=== PATIENT | male | born 2000 | race Caucasian/White ===

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

== ENCOUNTER 2020-06-03 19:57 | Emergency (ER) | payer MEDICAID, OTHER ==
[2020-06-03] MEDS ORDERED: Sodium Chloride 0.9% 1000 ML 1,000 ML IV STA ×2 (20:16→22:10)
--- NOTE | 2020-06-03 20:16 | ERPHSYRPT ---
- History of Present Illness Time Seen by Provider: 06/03/20 20:13 Source: patient Exam Limitations: no limitations Physician History: pt bumped his insulin pump working at [facility] and it came off so he left it off and keep working but then developed CP - his glucose is now 600 on finger stick although he did get an injection prior to arriva; he developed CP so that is why he came in. He will replace his pump with supplies being brought from home now. We will w/u his symptoms, and obs meantime . no c/o injury or other symptoms. Timing/Duration: today Severity: mild Associated Symptoms: chest pain Allergies/Adverse Reactions: No Known Drug Allergies Allergy (Verified 06/03/20 20:15) Home Medications: Insulin Lispro [Humalog] 0 unit SQ DAILY 03/21/14 [History] Hx Tetanus, Diphtheria Vaccination/Date Given: No Hx Influenza Vaccination/Date Given: No Hx Pneumococcal Vaccination/Date Given: No - Review of Systems Constitutional: No Fever, No Chills Eyes: No Symptoms Ears, Nose, & Throat: No Symptoms Respiratory: No Cough, No Dyspnea Cardiac: Chest Pain, No Edema, No Syncope Abdominal/Gastrointestinal: No Abdominal Pain, No Nausea, No Vomiting, No Diarrhea Genitourinary Symptoms: No Dysuria Musculoskeletal: No Back Pain, No Neck Pain Skin: No Rash Neurological: No Dizziness, No Focal Weakness, No Sensory Changes Psychological: No Symptoms Endocrine: No Symptoms Hematologic/Lymphatic: No Symptoms Immunological/Allergic: No Symptoms All Other Systems: Reviewed and Negative - Past Medical History Pertinent Past Medical History: Yes Neurological History: No Pertinent History, Other ENT History: No Pertinent History Cardiac History: No Pertinent History Respiratory History: No Pertinent History Endocrine Medical History: Diabetes Type I Musculoskeletal History: No Pertinent History GI Medical History: No Pertinent History History: No Pertinent History Psycho-Social History: Attention Deficit Disorder Male Reproductive Disorders: No Pertinent History Other Medical History: 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 NO LONGER TAKES MEDS FOR ADHD. - Past Surgical History Past Surgical History: No Neuro Surgical History: No Pertinent History Cardiac: No Pertinent History Respiratory: No Pertinent History Gastrointestinal: No Pertinent History Genitourinary: No Pertinent History Musculoskeletal: No Pertinent History Male Surgical History: No Pertinent History - Social History Smoking Status: Current every day smoker How long have you smoked: 4 Exposure to second hand smoke: Yes Drug Use: none Patient Lives Alone: No Significant Family History: no pertinent family hx - Nursing Vital Signs Nursing Vital Signs: Initial Vital Signs Temperature 98.3 F 06/03/20 20:00 Pulse Rate 110 H 06/03/20 20:00 Respiratory Rate 16 06/03/20 20:00 Blood Pressure 128/58 06/03/20 20:00 O2 Sat by Pulse Oximetry 97 06/03/20 20:00 Pain Scale Pain Intensity 0 - Physical Exam General Appearance: no apparent distress, alert Eye Exam: PERRL/EOMI, eyes nml inspection Ears, Nose, Throat Exam: normal ENT inspection, TMs normal, pharynx normal, moist mucous membranes Neck Exam: normal inspection, non-tender, supple, full range of motion Respiratory Exam: normal breath sounds, lungs clear, No respiratory distress Cardiovascular Exam: regular rate/rhythm, normal heart sounds, normal peripheral pulses Gastrointestinal/Abdomen Exam: soft, normal bowel sounds, No tenderness, No mass Rectal Exam: deferred Back Exam: normal inspection, normal range of motion, No CVA tenderness, No vertebral tenderness Extremity Exam: normal inspection, normal range of motion, pelvis stable Neurologic Exam: alert, oriented x 3, cooperative, normal mood/affect, nml cerebellar function, nml station & gait, sensation nml, No motor deficits Skin Exam: normal color, warm, dry, No rash Lymphatic Exam: No adenopathy - Course Nursing assessment & vital signs reviewed: Yes EKG Interpreted by Me: Sinus Tach, Right Donovan Deviation, Non-specific ST Changes Ordered Tests: Active Orders 24 hr Category Date Time Status EKG-ER Only STAT Care 06/03/20 20:16 Active IV Insertion STAT Care 06/03/20 20:16 Active CBC W DIFF Stat Lab 06/03/20 08:15 Completed CMP Stat Lab 06/03/20 08:15 Completed POCT GLUCOSE Stat Lab 06/03/20 20:10 Received POCT GLUCOSE Stat Lab 06/03/20 21:10 Completed POCT GLUCOSE Stat Lab 06/03/20 22:54 Completed TROPONIN Q3H Lab 06/03/20 08:15 Completed TROPONIN Q3H Lab 06/03/20 23:00 Received TROPONIN Q3H Lab 06/04/20 02:30 Ordered TROPONIN Q3H Lab 06/04/20 05:30 Ordered TROPONIN Q3H Lab 06/04/20 08:30 Ordered UA W/RFX UR CULTURE Stat Lab 06/03/20 21:15 Completed Medication Summary Discontinued Medications Generic Name Dose Route Start Last Admin Trade Name Miguel PRN Reason Stop Dose Admin Sodium Chloride 1,000 mls @ 999 mls/hr 06/03/20 20:16 06/03/20 20:22 Sodium Chloride 0.9% 1000 Ml IV 06/03/20 21:16 999 mls/hr .Q1H1M STA Administration Sodium Chloride Confirm 06/03/20 20:20 Sodium Chloride 0.9% 1000 Ml Administered 06/03/20 20:21 Dose 1,000 mls @ ud .ROUTE .STK-MED ONE Sodium Chloride 1,000 mls @ 999 mls/hr 06/03/20 22:10 06/03/20 22:49 Sodium Chloride 0.9% 1000 Ml IV 06/03/20 23:10 999 mls/hr .Q1H1M STA Administration Sodium Chloride Confirm 06/03/20 22:48 Sodium Chloride 0.9% 1000 Ml Administered 06/03/20 22:49 Dose 1,000 mls @ ud .ROUTE .[employer] Lab/Rad Data: Laboratory Result Diagrams 06/03/20 08:15 06/03/20 08:15 Laboratory Results 06/03/20 06/03/20 06/03/20 Range/Units 22:54 21:15 21:10 WBC (4.0-10.5) K/mm3 RBC (4.1-5.6) M/mm3 Hgb (12.5-18.0) gm/dl Hct (42-50) % MCV (78-100) fl MCH (26-32) pg MCHC (32-36) g/dl RDW (11.5-14.0) % Plt Count (150-450) K/mm3 MPV (7.5-11.0) fl Gran % (36.0-66.0) % Eos # (Auto) (0-0.5) Absolute Lymphs (auto) (1.0-4.6) Absolute Monos (auto) (0.0-1.3) Lymphocytes % (24.0-44.0) % Monocytes % (0.0-12.0) % Eosinophils % (0.00-5.0) % Basophils % (0.0-0.4) % Absolute Granulocytes (1.4-6.9) Basophils # (0-0.4) Sodium (137-145) mmol/L Potassium (3.5-5.1) mmol/L Chloride (98-107) mmol/L Carbon Dioxide (22-30) mmol/L Anion Gap (5-15) MEQ/L BUN (9-20) mg/dL Creatinine (0.66-1.25) mg/dL Estimated GFR ML/MIN Glucose (74-106) mg/dL POC Glucometer 265 H 490 H (74 to 106) mg/dL Calcium (8.4-10.2) mg/dL Total Bilirubin (0.2-1.3) mg/dL AST (17-59) U/L ALT (0-50) U/L Alkaline Phosphatase (38-126) U/L Troponin I (0.000-0.034) ng/mL Serum Total Protein (6.3-8.2) g/dL Albumin (3.5-5.0) g/dL Urine Color STRAW (YELLOW) Urine Appearance CLEAR (CLEAR) Urine pH 6.0 (5-6) Ur Specific [place] 1.029 (1.005-1.025) Urine Protein NEGATIVE (Negative) Urine Ketones SMALL (NEGATIVE) Urine Blood NEGATIVE (0-5) Konrad/ul Urine Nitrite NEGATIVE (NEGATIVE) Urine Bilirubin NEGATIVE (NEGATIVE) Urine Urobilinogen NEGATIVE (0-1) mg/dL Ur Leukocyte Esterase NEGATIVE (NEGATIVE) Urine WBC (Auto) NONE SEEN (0-5) /HPF Urine RBC (Auto) NONE (0-2) /HPF U Epithel Cells (Auto) NONE (FEW) /HPF Urine Bacteria (Auto) NONE (NEGATIVE) /HPF Urine Culture Reflexed NO (NO) Urine Glucose >=500 (NEGATIVE) mg/dL 06/03/20 06/03/20 06/03/20 Range/Units 08:15 08:15 08:15 WBC 15.2 H (4.0-10.5) K/mm3 RBC 4.84 (4.1-5.6) M/mm3 Hgb 15.6 (12.5-18.0) gm/dl Hct 45.9 (42-50) % MCV 94.8 (78-100) fl MCH 32.2 H (26-32) pg MCHC 34.0 (32-36) g/dl RDW 11.5 (11.5-14.0) % Plt Count 238 (150-450) K/mm3 MPV 13.3 H (7.5-11.0) fl Gran % 80.8 H (36.0-66.0) % Eos # (Auto) 0.20 (0-0.5) Absolute Lymphs (auto) 1.91 (1.0-4.6) Absolute Monos (auto) 0.77 (0.0-1.3) Lymphocytes % 12.6 L (24.0-44.0) % Monocytes % 5.1 (0.0-12.0) % Eosinophils % 1.3 (0.00-5.0) % Basophils % 0.2 (0.0-0.4) % Absolute Granulocytes 12.29 H (1.4-6.9) Basophils # 0.03 (0-0.4) Sodium 129 L (137-145) mmol/L Potassium 5.3 H (3.5-5.1) mmol/L Chloride 91 L (98-107) mmol/L Carbon Dioxide 21 L (22-30) mmol/L Anion Gap 21.8 H (5-15) MEQ/L BUN 19 (9-20) mg/dL Creatinine 0.89 (0.66-1.25) mg/dL Estimated GFR > 60.0 ML/MIN Glucose 668 H* (74-106) mg/dL POC Glucometer (74 to 106) mg/dL Calcium 9.5 (8.4-10.2) mg/dL Total Bilirubin 1.10 (0.2-1.3) mg/dL AST 32 (17-59) U/L ALT 35 (0-50) U/L Alkaline Phosphatase 145 H (38-126) U/L Troponin I < 0.012 (0.000-0.034) ng/mL Serum Total Protein 7.4 (6.3-8.2) g/dL Albumin 4.8 (3.5-5.0) g/dL Urine Color (YELLOW) Urine Appearance (CLEAR) Urine pH (5-6) Ur Specific [place] (1.005-1.025) Urine Protein (Negative) Urine Ketones (NEGATIVE) Urine Blood (0-5) Konrad/ul Urine Nitrite (NEGATIVE) Urine Bilirubin (NEGATIVE) Urine Urobilinogen (0-1) mg/dL Ur Leukocyte Esterase (NEGATIVE) Urine WBC (Auto) (0-5) /HPF Urine RBC (Auto) (0-2) /HPF U Epithel Cells (Auto) (FEW) /HPF Urine Bacteria (Auto) (NEGATIVE) /HPF Urine Culture Reflexed (NO) Urine Glucose (NEGATIVE) mg/dL - Progress Progress: improved, re-examined Progress Note: 06/03/20 21:09 heart score is 3 or less, no fam hx, no hptn, +DM, nonspecific ekg , and CP is decreasing and not assoc with shortness of breath or pressure. trop is neg 06/03/20 23:45 pain has resolved glucose down to 200s and pt feels ready to go home. he prefers thsi to staying for obs and has the [place] to make that choice. Counseled pt/family regarding: lab results, diagnosis, need for follow-up - Departure Departure Disposition: Home Clinical Impression: insulin pump malfunction/disl - resolved Condition: Good Critical Care Time: No Referrals: KARUNA ADAMS [Primary Care Provider] - Additional Instructions: continue to follow with your DrBoom and to check your glucose levels. return meantime if further symptoms or concern. contact your dr.s office this week to arrange followup .
[2020-06-03] MEDS ORDERED: Sodium Chloride 0.9% 1000 ML 1,000 ML ONE ×2 (20:20→22:48)
[2020-06-03 20:29] LABS: Absolute Neutrophil Ct (ANC) 12.29 (1.4-6.9); BASOPHIL % 0.2 % (0.0-0.4); Basophil (Absolute #) 0.03 (0-0.4); Eosinophil % 1.3 % (0.00-5.0); Hematocrit 45.9 % (42-50); Hemoglobin 15.6 gm/dl (12.5-18.0); Lymphocyte (Absolute #) 1.91 (1.0-4.6); Lymphocytes % 12.6 % (24.0-44.0); Mean Cell Volume 94.8 fl (78-100); Mean Corpuscular Hemoglobin 32.2 pg (26-32); Mean Platelet Volume 13.3 fl (7.5-11.0); Monocyte (Absolute #) 0.77 (0.0-1.3); Monocytes % 5.1 % (0.0-12.0); Neutrophil % 80.8 % (36.0-66.0); Platelet Count 238 K/mm3 (150-450); Red Blood Count 4.84 M/mm3 (4.1-5.6); Red Cell Distribution Width 11.5 % (11.5-14.0); White Blood Count 15.2 K/mm3 (4.0-10.5)
[2020-06-03 20:39] LABS: ALBUMIN 4.8 g/dL (3.5-5.0); ALKALINE PHOSPHATASE 145 U/L (38-126); ANION GAP 21.8 MEQ/L (5-15); BLOOD UREA NITROGEN 19 mg/dL (9-20); CHLORIDE 91 mmol/L (98-107); Calcium 9.5 mg/dL (8.4-10.2); Carbon Dioxide 21 mmol/L (22-30); Creatinine 1 0.89 mg/dL (0.66-1.25); EST GLOMERULAR FILTRATION RATE > 60.0 ML/MIN; Potassium 5.3 mmol/L (3.5-5.1); SGOT/AST 32 U/L (17-59); SGPT/ALT 35 U/L (0-50); SODIUM 129 mmol/L (137-145); Total Protein 7.4 g/dL (6.3-8.2)
[2020-06-03 21:05] LABS: Glucose 668 mg/dL (74-106)
[2020-06-03 21:22] LABS: Appearance CLEAR (CLEAR); Bilirubin NEGATIVE (NEGATIVE); Blood NEGATIVE Ery/ul (0-5); Glucose >=500 mg/dL (NEGATIVE); Ketones SMALL (NEGATIVE); Leukocyte Esterase NEGATIVE (NEGATIVE); Nitrite NEGATIVE (NEGATIVE); Protein,Urine Dip NEGATIVE (Negative); Specific Gravity 1.029 (1.005-1.025); Urobilinogen NEGATIVE mg/dL (0-1)
[2020-06-03 21:29] LABS: WBC NONE SEEN /HPF (0-5)
[2020-06-03 22:56] VITALS: O2SAT 98
[2020-06-04 00:20] VITALS: BP 108/61; PULSE 91
== END 2020-06-04 00:20 | disposition home or self-care (01) ==
LOC: ED 19:57
DX: T85.614A Breakdown (mechanical) of insulin pump, initial encounter (principal); E10.9 Type 1 diabetes mellitus without complications; Z96.41 Presence of insulin pump (external) (internal)
CPT/HCPCS: 36415; 80053; 81001; 82962; 84484; 85025; 93005; 96360; 96361; 99284

== ENCOUNTER 2020-06-25 15:02 | Emergency (ER) | payer MEDICAID, OTHER ==
--- NOTE | 2020-06-25 15:12 | ERPHSYRPT ---
- History of Present Illness Time Seen by Provider: 06/25/20 15:07 Source: patient, family Exam Limitations: clinical condition Physician History: This is a 19-year-old white male who had his wisdom teeth removed today approximately 10 AM. The patient was given Halcion for the procedure. He then was given prescriptions for narcotic pain medicine. However, the patient has been unable to swallow because of the degree of pain that he is experiencing. Patient has not contacted the dentist. He arrives tearful secondary to the pain. Timing/Duration: this morning Severity: moderate ENT Location: dental Prearrival Treatment: prescription meds Modifying Factors: Improves With: other (Swallowing hurts) Associated Symptoms: tooth pain (At L4 wisdom teeth extraction sites.) Allergies/Adverse Reactions: No Known Drug Allergies Allergy (Verified 06/25/20 15:22) Home Medications: Insulin Lispro [Humalog] 0 unit SQ DAILY 03/21/14 [History] Hx Tetanus, Diphtheria Vaccination/Date Given: No Hx Influenza Vaccination/Date Given: No Hx Pneumococcal Vaccination/Date Given: No Travel Risk - International Travel Have you traveled outside of the country in past 3 weeks: No - Coronavirus Screening Are you exhibiting any of the following symptoms?: No Close contact with a COVID-19 positive Pt in past 14-21 Days: No - Review of Systems Constitutional: No Symptoms Eyes: No Symptoms Ears, Nose, & Throat: Other (Post dental extraction pain) Respiratory: No Symptoms Cardiac: No Symptoms Abdominal/Gastrointestinal: No Symptoms Genitourinary Symptoms: No Symptoms Musculoskeletal: No Symptoms Skin: No Symptoms - Past Medical History Pertinent Past Medical History: Yes Neurological History: No Pertinent History, Other ENT History: No Pertinent History Cardiac History: No Pertinent History Respiratory History: No Pertinent History Endocrine Medical History: Diabetes Type I Musculoskeletal History: No Pertinent History GI Medical History: No Pertinent History History: No Pertinent History Psycho-Social History: Attention Deficit Disorder Male Reproductive Disorders: No Pertinent History Other Medical History: 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 NO LONGER TAKES MEDS FOR ADHD. - Past Surgical History Past Surgical History: No Neuro Surgical History: No Pertinent History Cardiac: No Pertinent History Respiratory: No Pertinent History Gastrointestinal: No Pertinent History Genitourinary: No Pertinent History Musculoskeletal: No Pertinent History Male Surgical History: No Pertinent History - Social History Smoking Status: Current every day smoker How long have you smoked: 4 Exposure to second hand smoke: Yes Drug Use: none Patient Lives Alone: No Significant Family History: no pertinent family hx - Nursing Vital Signs Nursing Vital Signs: Initial Vital Signs Pulse Rate 91 H 06/25/20 15:12 Blood Pressure 144/90 06/25/20 15:12 O2 Sat by Pulse Oximetry 100 06/25/20 15:12 Pain Scale Pain Intensity 10 - Physical Exam General Appearance: moderate distress, alert, anxiety Eye Exam: bilateral eye: normal inspection, PERRL, EOMI Ear Exam: bilateral ear: auricle normal Nasal Exam: normal inspection Throat Exam: dental tenderness (At all 4 dental extraction sites. 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, nml cerebellar function, nml station & gait, sensation nml, other (Anxious and tearful) Skin Exam: normal color, warm, dry SpO2 Interpretation: normal O2 Delivery: Room Air - Course Nursing assessment & vital signs reviewed: Yes Ordered Tests: Active Orders 24 hr Category Date Time Status POCT GLUCOSE Stat Lab 06/25/20 15:15 Completed Lab/Rad Data: Laboratory Results 06/25/20 Range/Units 15:15 POC Glucometer 185 H (74 to 106) mg/dL - Progress Progress: improved, pain not gone completely, re-examined Progress Note: 06/25/20 15:34 Medical decision making: This patient is dental tooth extraction from this morning. He had 4 to wisdom teeth removed. He is having trouble swallowing pills. We will change his narcotic pain control medication to liquid. He is to follow-up with the dentist tomorrow by phone to make arrangements for follow-up visit and for further pain medication if needed. Counseled pt/family regarding: diagnosis, need for follow-up - Departure Departure Disposition: Home Clinical Impression: Pain, dental Condition: Stable Critical Care Time: No Referrals: KARUNA ADAMS [Primary Care Provider] - Additional Instructions: Drink clear liquids. Rinse out mouth 2-3 times a day with salt water and or mouthwash. Do not take your pain pills in addition to the liquid pain medication. Call your dentist tomorrow for further management of your pain. Prescriptions: Hydrocodone Bit/Acetaminophen [Hydrocodone-Acetaminophen Soln] 10 ml PO Q6H #120 ml
[2020-06-25] MEDS ORDERED: Hydromorphone 1 mg/ml Injection ONE (15:38)
[2020-06-25] MEDS ORDERED: Phenergan 25 MG INJ ONE (15:38)
[2020-06-25] MEDS ORDERED: solu-MEDROL 125 MG ONE (15:39)
[2020-06-25] MEDS: Phenergan 25 MG INJ IM ONE (15:47)
[2020-06-25] MEDS: Hydromorphone 1 mg/ml Injection IM ONE (15:47)
[2020-06-25] MEDS: solu-MEDROL 125 MG IM ONE (15:48)
[2020-06-25 16:18] VITALS: BP 121/78; PULSE 100; O2SAT 97
== END 2020-06-25 16:29 | disposition home or self-care (01) ==
LOC: ED 15:02
DX: K08.89 Other specified disorders of teeth and supporting structures (principal); Z98.818 Other dental procedure status
CPT/HCPCS: 82947; 96372; 99284; J1170; J2550; J2930

== ENCOUNTER 2020-08-02 20:53 | Emergency (ER) | payer MEDICAID, OTHER ==
--- NOTE | 2020-08-02 21:27 | ERPHSYRPT ---
- History of Present Illness Source: patient, police Exam Limitations: no limitations Patient Subjective Stated Complaint: pt was pulled over going 71mph in a 30mph zone. told the officer that he was speeding because he wanted to . pt states to staff that he doesnt care if he lives or dies, but is not having suicidal thoughts. Triage Nursing Assessment: pt alert and oriented, answers questions approp. pt cooperative at this time. pt arrives with law enforcement, ambulatory to room with steady gait noted. respirations nonlabored with lungs cta. skin warm and dry. Physician History: 19 yo wm caught speeding 70mph in 30mph zone told police that he did not care if he lived or . Pt denies suicidal ideation/drug-alcohol use. He has DM1 and has an insulin pump. Pt denies problems at home/work/w SO. Works at [employer]. Timing/Duration: today Precipitating Factors: unknown Context: other (Driving) Loss of Consciousness: no loss of consciousness Allergies/Adverse Reactions: No Known Drug Allergies Allergy (Verified 08/02/20 21:12) Home Medications: Insulin Lispro [Humalog] 0 unit SQ DAILY 03/21/14 [History] Hx Tetanus, Diphtheria Vaccination/Date Given: Yes Hx Influenza Vaccination/Date Given: No Hx Pneumococcal Vaccination/Date Given: No Immunizations Up to Date: Yes Travel Risk - International Travel Have you traveled outside of the country in past 3 weeks: No - Coronavirus Screening Are you exhibiting any of the following symptoms?: No Close contact with a COVID-19 positive Pt in past 14-21 Days: No - Past Medical History Pertinent Past Medical History: Yes Neurological History: No Pertinent History, Other ENT History: No Pertinent History Cardiac History: No Pertinent History Respiratory History: No Pertinent History Endocrine Medical History: Diabetes Type I Musculoskeletal History: No Pertinent History GI Medical History: No Pertinent History History: No Pertinent History Psycho-Social History: Attention Deficit Disorder Male Reproductive Disorders: No Pertinent History Other Medical History: 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 NO LONGER TAKES MEDS FOR ADHD. - Past Surgical History Past Surgical History: No Neuro Surgical History: No Pertinent History Cardiac: No Pertinent History Respiratory: No Pertinent History Gastrointestinal: No Pertinent History Genitourinary: No Pertinent History Musculoskeletal: No Pertinent History Male Surgical History: No Pertinent History - Social History Smoking Status: Current some day smoker How long have you smoked: 4 Exposure to second hand smoke: Yes Drug Use: marijuana Patient Lives Alone: No Significant Family History: no pertinent family hx - Review of Systems Constitutional: No Symptoms Eyes: No Symptoms Ears, Nose, & Throat: No Symptoms Respiratory: No Symptoms Cardiac: No Symptoms Abdominal/Gastrointestinal: No Symptoms Genitourinary Symptoms: No Symptoms Musculoskeletal: No Symptoms Skin: No Symptoms Endocrine: No Symptoms Hematologic/Lymphatic: No Symptoms Immunological/Allergic: No Symptoms Physical Exam - Nursing Vital Signs Nursing Vital Signs: Initial Vital Signs Temperature 98.8 F 08/02/20 20:54 Pulse Rate 121 H 08/02/20 20:54 Respiratory Rate 18 08/02/20 20:54 Blood Pressure 136/73 08/02/20 20:54 O2 Sat by Pulse Oximetry 97 08/02/20 20:54 Pain Scale Pain Intensity 0 - [place] Coma Scale Best Eye Response ([place]): (4) open spontaneously Best Verbal Response ([place]): (5) oriented Best Motor Response ([place]): (6) obeys commands [place] Total: 15 - Physical Exam Eye Exam: bilateral eye: normal inspection, PERRL, EOMI Ears, Nose, Throat Exam: normal ENT inspection, TMs normal, pharynx normal, moist mucous membranes Neck Exam: normal inspection, non-tender, supple, No meningismus, No mass, No Brudzinski, No Kernig's, No carotid bruit Respiratory: normal breath sounds, lungs clear, airway intact Cardiovascular: regular rate/rhythm, normal heart sounds, normal peripheral pulses, No murmur Gastrointestinal: soft, normal bowel sounds, No tenderness Back Exam: normal inspection, normal range of motion, CVA tenderness, No vertebral tenderness Extremity Exam: normal inspection, normal range of motion Mental Status: alert, oriented x 3, cooperative manager strategy Exam: normal hearing, normal speech, PERRL Motor/Sensory: no motor deficit, no sensory deficit, no pronator drift, negative Babinski's sign DTR: bicep (R): 2+, bicep (L): 2+ Skin Exam: normal color, warm, dry, No rash SpO2 Interpretation: normal SpO2: 97 O2 Delivery: Room Air Ordered Tests: Active Orders 24 hr Category Date Time Status ACETAMINOPHEN Stat Lab 08/02/20 21:40 Completed BMP Stat Lab 08/02/20 23:50 Completed CBC W DIFF Stat Lab 08/02/20 21:40 Completed CMP Stat Lab 08/02/20 21:40 Completed ETHYL ALCOHOL Stat Lab 08/02/20 21:40 Completed POCT GLUCOSE Stat Lab 08/02/20 21:16 Received POCT GLUCOSE Stat Lab 08/02/20 21:17 Received POCT GLUCOSE Stat Lab 08/02/20 22:18 Completed SALICYLATE Stat Lab 08/02/20 21:40 Completed UA W/RFX UR CULTURE Stat Lab 08/02/20 21:18 Completed Urine Triage Profile Stat Lab 08/02/20 21:18 Completed Medication Summary Generic Name Dose Route Start Last Admin Trade Name Freq PRN Reason Stop Dose Admin Sodium Chloride 1,000 mls @ 100 mls/hr 08/03/20 01:00 08/03/20 00:49 Sodium Chloride 0.9% 1000 Ml IV 09/02/20 00:59 100 mls/hr .Q10H BLAKE Administration Discontinued Medications Generic Name Dose Route Start Last Admin Trade Name Freq PRN Reason Stop Dose Admin Sodium Chloride 1,000 mls @ 999 mls/hr 08/02/20 22:22 08/02/20 23:13 Sodium Chloride 0.9% 1000 Ml IV 08/02/20 23:22 Infused .Q1H1M STA Infusion Sodium Chloride Confirm 08/02/20 22:30 Sodium Chloride 0.9% 1000 Ml Administered 08/02/20 22:31 Dose 1,000 mls @ ud .ROUTE .STK-MED ONE Sodium Chloride 1,000 mls @ 999 mls/hr 08/02/20 22:57 08/02/20 23:12 Sodium Chloride 0.9% 1000 Ml IV 08/02/20 23:57 Infused .Q1H1M STA Infusion Sodium Chloride Confirm 08/02/20 22:57 Sodium Chloride 0.9% 1000 Ml Administered 08/02/20 22:58 Dose 1,000 mls @ ud .ROUTE .STK-MED ONE Sodium Chloride Confirm 08/03/20 00:43 Sodium Chloride 0.9% 1000 Ml Administered 08/03/20 00:44 Dose 1,000 mls @ ud .ROUTE .STK-MED ONE Insulin Human Regular 10 unit 08/02/20 22:23 08/02/20 22:29 Humulin R IV 08/02/20 22:24 10 unit STAT ONE Administration Insulin Human Regular Confirm 08/02/20 22:30 Humulin R Administered 08/02/20 22:31 Dose 10 unit .ROUTE .STK-MED ONE Lab/Rad Data: Laboratory Result Diagrams 08/02/20 21:40 08/02/20 23:50 Laboratory Results 08/02/20 08/02/20 08/02/20 Range/Units 23:50 22:18 21:40 WBC (4.0-10.5) K/mm3 RBC (4.1-5.6) M/mm3 Hgb (12.5-18.0) gm/dl Hct (42-50) % MCV (78-100) fl MCH (26-32) pg MCHC (32-36) g/dl RDW (11.5-14.0) % Plt Count (150-450) K/mm3 MPV (7.5-11.0) fl Gran % (36.0-66.0) % Eos # (Auto) (0-0.5) Absolute Lymphs (auto) (1.0-4.6) Absolute Monos (auto) (0.0-1.3) Lymphocytes % (24.0-44.0) % Monocytes % (0.0-12.0) % Eosinophils % (0.00-5.0) % Basophils % (0.0-0.4) % Absolute Granulocytes (1.4-6.9) Basophils # (0-0.4) Sodium 134 L 128 L (137-145) mmol/L Potassium 3.7 D 5.5 H (3.5-5.1) mmol/L Chloride 102 93 L (98-107) mmol/L Carbon Dioxide 26 21 L (22-30) mmol/L Anion Gap 9.7 19.9 H (5-15) MEQ/L BUN 20 21 H (9-20) mg/dL Creatinine 0.69 0.78 (0.66-1.25) mg/dL Estimated GFR > 60.0 > 60.0 ML/MIN Glucose 355 H 758 H* (74-106) mg/dL POC Glucometer 592 H* (50 to 500) mg/dL Calcium 8.0 L 8.6 (8.4-10.2) mg/dL Total Bilirubin 0.60 (0.2-1.3) mg/dL AST 27 (17-59) U/L ALT 32 (0-50) U/L Alkaline Phosphatase 118 (38-126) U/L Serum Total Protein 6.5 (6.3-8.2) g/dL Albumin 4.0 (3.5-5.0) g/dL Urine Color (YELLOW) Urine Appearance (CLEAR) Urine pH (5-6) Ur Specific [place] (1.005-1.025) Urine Protein (Negative) Urine Ketones (NEGATIVE) Urine Blood (0-5) Konrad/ul Urine Nitrite (NEGATIVE) Urine Bilirubin (NEGATIVE) Urine Urobilinogen (0-1) mg/dL Ur Leukocyte Esterase (NEGATIVE) Urine WBC (Auto) (0-5) /HPF Urine RBC (Auto) (0-2) /HPF U Epithel Cells (Auto) (FEW) /HPF Urine Bacteria (Auto) (NEGATIVE) /HPF Urine Culture Reflexed (NO) Urine Glucose (NEGATIVE) mg/dL Salicylates < 1.0 L (2-20) mg/dL Urine Opiates Level (NEGATIVE) Ur Methadone (NEGATIVE) Acetaminophen < 10 L (10-30) ug/ml Urine Barbiturates (NEGATIVE) Ur Phencyclidine (PCP) (NEGATIVE) Urine Amphetamine (NEGATIVE) U Benzodiazepine Level (NEGATIVE) Urine Cocaine (NEGATIVE) Urine Marijuana (THC) (NEGATIVE) Ethyl Alcohol < 10 (0-10) mg/dL 08/02/20 08/02/20 08/02/20 Range/Units 21:40 21:18 21:18 WBC 8.0 (4.0-10.5) K/mm3 RBC 4.76 (4.1-5.6) M/mm3 Hgb 15.1 (12.5-18.0) gm/dl Hct 46.1 (42-50) % MCV 96.8 (78-100) fl MCH 31.7 (26-32) pg MCHC 32.8 (32-36) g/dl RDW 11.6 (11.5-14.0) % Plt Count 238 (150-450) K/mm3 MPV 12.4 H (7.5-11.0) fl Gran % 78.9 H (36.0-66.0) % Eos # (Auto) 0.11 (0-0.5) Absolute Lymphs (auto) 1.35 (1.0-4.6) Absolute Monos (auto) 0.19 (0.0-1.3) Lymphocytes % 16.9 L (24.0-44.0) % Monocytes % 2.4 (0.0-12.0) % Eosinophils % 1.4 (0.00-5.0) % Basophils % 0.4 (0.0-0.4) % Absolute Granulocytes 6.33 (1.4-6.9) Basophils # 0.03 (0-0.4) Sodium (137-145) mmol/L Potassium (3.5-5.1) mmol/L Chloride (98-107) mmol/L Carbon Dioxide (22-30) mmol/L Anion Gap (5-15) MEQ/L BUN (9-20) mg/dL Creatinine (0.66-1.25) mg/dL Estimated GFR ML/MIN Glucose (74-106) mg/dL POC Glucometer (50 to 500) mg/dL Calcium (8.4-10.2) mg/dL Total Bilirubin (0.2-1.3) mg/dL AST (17-59) U/L ALT (0-50) U/L Alkaline Phosphatase (38-126) U/L Serum Total Protein (6.3-8.2) g/dL Albumin (3.5-5.0) g/dL Urine Color STRAW (YELLOW) Urine Appearance CLEAR (CLEAR) Urine pH 6.0 (5-6) Ur Specific [place] 1.027 (1.005-1.025) Urine Protein NEGATIVE (Negative) Urine Ketones SMALL (NEGATIVE) Urine Blood NEGATIVE (0-5) Konrad/ul Urine Nitrite NEGATIVE (NEGATIVE) Urine Bilirubin NEGATIVE (NEGATIVE) Urine Urobilinogen NEGATIVE (0-1) mg/dL Ur Leukocyte Esterase NEGATIVE (NEGATIVE) Urine WBC (Auto) NONE (0-5) /HPF Urine RBC (Auto) NONE (0-2) /HPF U Epithel Cells (Auto) NONE (FEW) /HPF Urine Bacteria (Auto) NONE (NEGATIVE) /HPF Urine Culture Reflexed NO (NO) Urine Glucose >=500 (NEGATIVE) mg/dL Salicylates (2-20) mg/dL Urine Opiates Level NEGATIVE (NEGATIVE) Ur Methadone NEGATIVE (NEGATIVE) Acetaminophen (10-30) ug/ml Urine Barbiturates NEGATIVE (NEGATIVE) Ur Phencyclidine (PCP) NEGATIVE (NEGATIVE) Urine Amphetamine NEGATIVE (NEGATIVE) U Benzodiazepine Level NEGATIVE (NEGATIVE) Urine Cocaine NEGATIVE (NEGATIVE) Urine Marijuana (THC) NEGATIVE (NEGATIVE) Ethyl Alcohol (0-10) mg/dL - Progress Progress: improved Progress Note: 08/03/20 00:36 Pt given 2L NS bolus/10units of IV regular insulin w decrease in glucose and normalization of anion gap/Pt also bolus SQ novolog per insulin pump 08/03/20 03:25 Consult per [facility] believes that pt needs treatment, so FUNMI signed. - Departure Departure Disposition: Transfer Clinical Impression: Hyperglycemia due to type 1 diabetes mellitus, Depression Condition: Stable Critical Care Time: No Referrals: KARUNA ADAMS [Primary Care Provider] -
[2020-08-02 21:32] LABS: Appearance CLEAR (CLEAR); Bilirubin NEGATIVE (NEGATIVE); Blood NEGATIVE Ery/ul (0-5); Glucose >=500 mg/dL (NEGATIVE); Ketones SMALL (NEGATIVE); Leukocyte Esterase NEGATIVE (NEGATIVE); Nitrite NEGATIVE (NEGATIVE); Protein,Urine Dip NEGATIVE (Negative); Specific Gravity 1.027 (1.005-1.025); Urobilinogen NEGATIVE mg/dL (0-1)
[2020-08-02 21:47] LABS: Amphetamine,Urine NEGATIVE (NEGATIVE); Barbiturate,Urine NEGATIVE (NEGATIVE); Benzodiazepine,Urine NEGATIVE (NEGATIVE); Cocaine,Urine NEGATIVE (NEGATIVE); Methadone,Urine NEGATIVE (NEGATIVE); Opiate,Urine NEGATIVE (NEGATIVE); PCP,Urine NEGATIVE (NEGATIVE); THC,Urine NEGATIVE (NEGATIVE)
[2020-08-02 21:50] LABS: Absolute Neutrophil Ct (ANC) 6.33 (1.4-6.9); BASOPHIL % 0.4 % (0.0-0.4); Basophil (Absolute #) 0.03 (0-0.4); Eosinophil % 1.4 % (0.00-5.0); Eosinophil (Absolute #) 0.11 (0-0.5); Hematocrit 46.1 % (42-50); Hemoglobin 15.1 gm/dl (12.5-18.0); Lymphocyte (Absolute #) 1.35 (1.0-4.6); Lymphocytes % 16.9 % (24.0-44.0); Mean Cell Volume 96.8 fl (78-100); Mean Corpuscular Hemoglobin 31.7 pg (26-32); Mean Corpuscular Hgb Concent. 32.8 g/dl (32-36); Mean Platelet Volume 12.4 fl (7.5-11.0); Monocyte (Absolute #) 0.19 (0.0-1.3); Monocytes % 2.4 % (0.0-12.0); Neutrophil % 78.9 % (36.0-66.0); Platelet Count 238 K/mm3 (150-450); Red Blood Count 4.76 M/mm3 (4.1-5.6); Red Cell Distribution Width 11.6 % (11.5-14.0)
[2020-08-02 22:03] LABS: ALKALINE PHOSPHATASE 118 U/L (38-126); ANION GAP 19.9 MEQ/L (5-15); BLOOD UREA NITROGEN 21 mg/dL (9-20); CHLORIDE 93 mmol/L (98-107); Calcium 8.6 mg/dL (8.4-10.2); Carbon Dioxide 21 mmol/L (22-30); Creatinine 1 0.78 mg/dL (0.66-1.25); EST GLOMERULAR FILTRATION RATE > 60.0 ML/MIN; Potassium 5.5 mmol/L (3.5-5.1); SGOT/AST 27 U/L (17-59); SGPT/ALT 32 U/L (0-50); SODIUM 128 mmol/L (137-145); Total Protein 6.5 g/dL (6.3-8.2)
[2020-08-02 22:19] LABS: ACETAMINOPHEN < 10 ug/ml (10-30); ETHYL ALCOHOL < 10 mg/dL (0-10); Glucose 758 mg/dL (74-106); SALICYLATE < 1.0 mg/dL (2-20)
[2020-08-02] MEDS ORDERED: HUMULIN R IV ONE (22:23)
[2020-08-02] MEDS ORDERED: HUMULIN R ONE (22:30)
[2020-08-02] MEDS ORDERED: Sodium Chloride 0.9% 1000 ML 1,000 ML ONE ×2 (22:30→22:57)
[2020-08-02] MEDS: Sodium Chloride 0.9% 1000 ML 1,000 ML IV STA ×2 (22:31→22:58)
[2020-08-02] MEDS ORDERED: Sodium Chloride 0.9% 1000 ML 1,000 ML IV STA (22:57)
[2020-08-03 00:04] LABS: ANION GAP 9.7 MEQ/L (5-15); BLOOD UREA NITROGEN 20 mg/dL (9-20); CHLORIDE 102 mmol/L (98-107); Carbon Dioxide 26 mmol/L (22-30); Creatinine 1 0.69 mg/dL (0.66-1.25); EST GLOMERULAR FILTRATION RATE > 60.0 ML/MIN; Glucose 355 mg/dL (74-106); Potassium 3.7 mmol/L (3.5-5.1); SODIUM 134 mmol/L (137-145)
[2020-08-03] MEDS ORDERED: Sodium Chloride 0.9% 1000 ML 1,000 ML ONE (00:43)
[2020-08-03] MEDS ORDERED: Sodium Chloride 0.9% 1000 ML 1,000 ML IV SCH (01:00)
[2020-08-03 02:09] VITALS: BP 118/66
[2020-08-03 02:14] VITALS: PULSE 71
[2020-08-03 03:28] VITALS: O2SAT 97
== END 2020-08-03 04:32 | disposition short-term general hospital (02) ==
LOC: ED 20:53
DX: E10.65 Type 1 diabetes mellitus with hyperglycemia (principal); F32.9 Major depressive disorder, single episode, unspecified
CPT/HCPCS: 36415; 80048; 80053; 80307; 81001; 82947; 85025; 90791; 96360; 96361; 96374; 99285; Q3014; J1815; G0480

== ENCOUNTER 2020-11-06 07:00 | Emergency (ER) | payer OTHER, SELFPAY ==
[2020-11-06 07:15] VITALS: BP 117/73; O2SAT 96
[2020-11-06] MEDS ORDERED: KEFLEX 500 MG PO ONE (07:21)
[2020-11-06] MEDS ORDERED: KEFLEX 500 MG ONE (07:22)
[2020-11-06 07:26] VITALS: PULSE 93
--- NOTE | 2020-11-06 07:27 | ERPHSYRPT ---
- History of Present Illness Time Seen by Provider: 11/06/20 07:15 Source: patient Exam Limitations: no limitations Patient Subjective Stated Complaint: PT states "I cut my arm with a pocket knife a couple of days ago and I work at the [employer] and I got something in it and it has been burning all day." Triage Nursing Assessment: Pt presented alert and oriented X 3, skin pwd. Pt ambualtes with an upright steady gait, able to speak in clear full sentences pt in no apparent respiratory distress. pt has approx 10 cm laceration partially healed on his right forearm. PT arrived with dried white poder over right arm. Pt was instructed to flush the arm and wound with water upon arrival. Physician History: This is a 19-year-old white male who presents with 2-day history of abrasion/laceration right forearm. Occurred at work with a pocket knife. Patient states that he has been keeping it clean and had a bandage on this site. However there was burning pain present today and he was concerned that he may need antibiotics because of the burning and mild redness around the site. Timing/Duration: day(s) (2) Quality: burning, painful Severity: mild Location: extremities (Right forearm) Possible Causes: other (Accidental laceration/abrasion) Associated Symptoms: denies symptoms Allergies/Adverse Reactions: No Known Drug Allergies Allergy (Verified 08/02/20 21:12) Home Medications: Insulin Lispro [Humalog] 0 unit SQ DAILY 03/21/14 [History] Hx Tetanus, Diphtheria Vaccination/Date Given: No Hx Influenza Vaccination/Date Given: No Hx Pneumococcal Vaccination/Date Given: No Immunizations Up to Date: Yes Travel Risk - International Travel Have you traveled outside of the country in past 3 weeks: No - Coronavirus Screening Are you exhibiting any of the following symptoms?: No Close contact with a COVID-19 positive Pt in past 14-21 Days: No - Review of Systems Constitutional: No Symptoms Eyes: No Symptoms Ears, Nose, & Throat: No Symptoms Respiratory: No Symptoms Cardiac: No Symptoms Abdominal/Gastrointestinal: No Symptoms Genitourinary Symptoms: No Symptoms Musculoskeletal: No Symptoms Skin: No Symptoms Neurological: No Symptoms Psychological: No Symptoms Endocrine: No Symptoms Hematologic/Lymphatic: No Symptoms Immunological/Allergic: No Symptoms All Other Systems: Reviewed and Negative - Past Medical History Pertinent Past Medical History: Yes Neurological History: No Pertinent History, Other ENT History: No Pertinent History Cardiac History: No Pertinent History Respiratory History: No Pertinent History Endocrine Medical History: Diabetes Type I Musculoskeletal History: No Pertinent History GI Medical History: No Pertinent History History: No Pertinent History Psycho-Social History: Attention Deficit Disorder Male Reproductive Disorders: No Pertinent History Other Medical History: 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 NO LONGER TAKES MEDS FOR ADHD. - Past Surgical History Past Surgical History: No Neuro Surgical History: No Pertinent History Cardiac: No Pertinent History Respiratory: No Pertinent History Gastrointestinal: No Pertinent History Genitourinary: No Pertinent History Musculoskeletal: No Pertinent History Male Surgical History: No Pertinent History - Social History Smoking Status: Current every day smoker How long have you smoked: 2 years Exposure to second hand smoke: Yes Drug Use: marijuana Patient Lives Alone: No Significant Family History: no pertinent family hx - Nursing Vital Signs Nursing Vital Signs: Initial Vital Signs Temperature 98.2 F 11/06/20 07:09 Pulse Rate 100 H 11/06/20 07:09 Respiratory Rate 20 11/06/20 07:09 Blood Pressure 117/73 11/06/20 07:09 O2 Sat by Pulse Oximetry 96 11/06/20 07:09 Pain Scale Pain Intensity 4 - Physical Exam General Appearance: no apparent distress Eye Exam: PERRL/EOMI Ears, Nose, Throat Exam: normal ENT inspection, moist mucous membranes Neck Exam: normal inspection, non-tender, supple, full range of motion Respiratory Exam: normal breath sounds, lungs clear, No chest tenderness, No respiratory distress, No airway intact Cardiovascular Exam: regular rate/rhythm, normal heart sounds, normal peripheral pulses Gastrointestinal/Abdomen Exam: soft, normal bowel sounds, No tenderness Rectal Exam: not done Back Exam: normal inspection, normal range of motion, No CVA tenderness, No vertebral tenderness Extremity Exam: normal range of motion, pelvis stable, tenderness, other (5 cm superficial laceration/abrasion) Neurologic Exam: alert, oriented x 3, cooperative, normal mood/affect, nml cerebellar function, nml station & gait, sensation nml Skin Exam: abrasion (5 cm. Right forearm.) Lymphatic Exam: adenopathy SpO2 Interpretation: normal SpO2: 96 O2 Delivery: Room Air - Course Nursing assessment & vital signs reviewed: Yes Ordered Tests: Medication Summary Generic Name Dose Route Start Last Admin Trade Name Freq PRN Reason Stop Dose Admin Cephalexin HCl 500 mg 11/06/20 07:21 Keflex 500 Mg PO 11/06/20 07:22 STAT ONE - Progress Progress: unchanged Progress Note: 11/06/20 07:26 No need for repair of this superficial laceration/abrasion that is 48 hours old. Counseled pt/family regarding: diagnosis, need for follow-up - Departure Departure Disposition: Home Clinical Impression: Abrasion of right forearm Condition: Stable Critical Care Time: No Referrals: KARUNA ADAMS [Primary Care Provider] - Additional Instructions: Keep area clean 1-2 times a day with soap and water. May apply thin layer of antibiotic ointment once daily. Cover the abrasion site with bandage every day. Take your antibiotics as prescribed. Follow-up with your primary care physician for further management. Prescriptions: Cephalexin Mh 500 mg [Keflex 500 mg] 500 mg PO TID #21 capsule
== END 2020-11-06 07:39 | disposition home or self-care (01) ==
LOC: ED 07:00
DX: S50.811A Abrasion of right forearm, initial encounter (principal); W26.0XXA Contact with knife, initial encounter; Y92.69 Other specified industrial and construction area as the place of occurrence of the external cause
CPT/HCPCS: 99283; A9270-GY

== ENCOUNTER 2021-03-03 09:38 | Inpatient (IN) | payer MEDICAID, OTHER ==
[2021-03-03] MEDS ORDERED: Sodium Chloride 0.9% 1000 ML 1,000 ML ONE ×3 (09:55→12:58)
[2021-03-03] MEDS ORDERED: Sodium Chloride 0.9% 1000 ML 1,000 ML IV STA (10:27)
--- NOTE | 2021-03-03 10:32 | ERPHSYRPT ---
- History of Present Illness Time Seen by Provider: 03/03/21 10:01 Source: patient Exam Limitations: no limitations Patient Subjective Stated Complaint: here for high blood sugars for 3 days now. co weakness, pain all over . abd pain Triage Nursing Assessment: pt alert, resp easy , skin w/d/p. no edema noted, has insulin pump in place Physician History: 20 years old type I diabetic on insulin pump with poorly controlled blood sugar presented in the ER with elevated glucose for the last 3 days. Patient reports he thinks his pump is not working well, has changed batteries and switch places but does not seem helping. Patient blood sugar at 600 on presentation. Is complaining of mild generalized weakness fatigue and tiredness with some abdominal discomfort but denies any pain. No nausea or vomiting reported. Reports that his usual blood sugar runs between 300-500. No fever or chills reported. Timing/Duration: day(s) (3) Severity: moderate Associated Symptoms: loss of appetite, malaise, weakness Allergies/Adverse Reactions: No Known Drug Allergies Allergy (Verified 03/03/21 09:51) Home Medications: Insulin Lispro [Humalog] 0 unit SQ DAILY 03/21/14 [History] Hx Tetanus, Diphtheria Vaccination/Date Given: No Hx Influenza Vaccination/Date Given: No Hx Pneumococcal Vaccination/Date Given: No Immunizations Up to Date: Yes Travel Risk - International Travel Have you traveled outside of the country in past 3 weeks: No - Coronavirus Screening Are you exhibiting any of the following symptoms?: No Close contact with a COVID-19 positive Pt in past 14-21 Days: No - Vaccine Status Have you recieved a Covid-19 vaccination: No - Review of Systems Constitutional: Fatigue, Weakness Eyes: No Symptoms Ears, Nose, & Throat: No Symptoms Respiratory: No Symptoms Cardiac: No Symptoms Abdominal/Gastrointestinal: No Symptoms Genitourinary Symptoms: No Symptoms Musculoskeletal: Myalgias Skin: No Symptoms, Skin Lesions Psychological: No Symptoms Endocrine: No Symptoms Hematologic/Lymphatic: No Symptoms Immunological/Allergic: No Symptoms - Past Medical History Pertinent Past Medical History: Yes Neurological History: No Pertinent History, Other ENT History: No Pertinent History Cardiac History: No Pertinent History Respiratory History: No Pertinent History Endocrine Medical History: Diabetes Type I Musculoskeletal History: No Pertinent History GI Medical History: No Pertinent History History: No Pertinent History Psycho-Social History: Attention Deficit Disorder Male Reproductive Disorders: No Pertinent History Other Medical History: 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 NO LONGER TAKES MEDS FOR ADHD. - Past Surgical History Past Surgical History: No Neuro Surgical History: No Pertinent History Cardiac: No Pertinent History Respiratory: No Pertinent History Gastrointestinal: No Pertinent History Genitourinary: No Pertinent History Musculoskeletal: No Pertinent History Male Surgical History: No Pertinent History - Social History Smoking Status: Current every day smoker How long have you smoked: 2 years Exposure to second hand smoke: Yes Drug Use: marijuana Patient Lives Alone: No Significant Family History: no pertinent family hx - Nursing Vital Signs Nursing Vital Signs: Initial Vital Signs Temperature 97.0 F 03/03/21 09:39 Pulse Rate 118 H 03/03/21 09:39 Respiratory Rate 16 03/03/21 09:39 Blood Pressure 122/81 03/03/21 09:39 O2 Sat by Pulse Oximetry 97 03/03/21 09:39 Pain Scale Pain Intensity 4 - Physical Exam General Appearance: no apparent distress, alert Eye Exam: PERRL/EOMI Ears, Nose, Throat Exam: normal ENT inspection, TMs normal, pharynx normal Neck Exam: normal inspection, non-tender, supple, full range of motion Respiratory Exam: normal breath sounds, lungs clear Cardiovascular Exam: regular rate/rhythm, normal heart sounds Gastrointestinal/Abdomen Exam: soft, normal bowel sounds, No tenderness, No guarding Back Exam: normal inspection, normal range of motion Extremity Exam: normal inspection, normal range of motion, pelvis stable Neurologic Exam: alert, oriented x 3, cooperative, oven roaster II-XII nml as tested Skin Exam: normal color SpO2 Interpretation: normal SpO2: 98 O2 Delivery: Room Air - Course EKG Interpreted by Me: RATE ([id number]), Sinus Rhythm, NORMAL AXIS, NORMAL INTERVALS, NORMAL QRS Ordered Tests: Active Orders 24 hr Category Date Time Status IV Insertion STAT Care 03/03/21 10:27 Active NPO (ED) STAT Care 03/03/21 10:28 Active POCT Glucose Check STAT Care 03/03/21 10:27 Active CBC W DIFF Stat Lab 03/03/21 10:25 Completed CMP Stat Lab 03/03/21 10:25 Completed LIPASE Stat Lab 03/03/21 10:25 Completed MAGNESIUM Stat Lab 03/03/21 10:25 Completed UA W/RFX UR CULTURE Stat Lab 03/03/21 10:25 Completed VENOUS BLOOD GAS Stat Lab 03/03/21 10:28 Completed Medication Summary Generic Name Dose Route Start Last Admin Trade Name Miguel PRN Reason Stop Dose Admin Insulin Human Regular 100 unit 100 mls @ 6.6 mls/hr 03/03/21 11:02 03/03/21 11:14 / Sodium Chloride IV 04/02/21 11:01 0.1 unit/kg/hr .[id number] PRN 6.6 mls/hr DKA/HYPERGLYCEMIA Administration Protocol 0.1 UNIT/KG/HR Discontinued Medications Generic Name Dose Route Start Last Admin Trade Name Miguel PRN Reason Stop Dose Admin Sodium Chloride Confirm 03/03/21 09:55 Sodium Chloride 0.9% 1000 Ml Administered 03/03/21 09:56 Dose 1,000 mls @ ud .ROUTE .STK-MED ONE Sodium Chloride 1,000 mls @ 999 mls/hr 03/03/21 10:27 03/03/21 11:40 Sodium Chloride 0.9% 1000 Ml IV 03/03/21 11:27 Infused .Q1H1M STA Infusion Sodium Chloride Confirm 03/03/21 11:22 Sodium Chloride 0.9% 1000 Ml Administered 03/03/21 11:23 Dose 1,000 mls @ ud .ROUTE .STAuctions by Wallace-MED ONE Lab/Rad Data: Laboratory Result Diagrams 03/03/21 10:25 03/03/21 10:25 Laboratory Results 03/03/21 03/03/21 03/03/21 Range/Units 10:28 10:25 10:25 WBC 8.4 (4.0-10.5) K/mm3 RBC 5.63 H (4.1-5.6) M/mm3 Hgb 17.2 (12.5-18.0) gm/dl Hct 50.9 H (42-50) % MCV 90.4 (78-100) fl MCH 30.6 (26-32) pg MCHC 33.8 (32-36) g/dl RDW 11.8 (11.5-14.0) % Plt Count 230 (150-450) K/mm3 MPV 13.3 H (7.5-11.0) fl Gran % 64.5 (36.0-66.0) % Eos # (Auto) 0.17 (0-0.5) Absolute Lymphs (auto) 2.13 (1.0-4.6) Absolute Monos (auto) 0.64 (0.0-1.3) Lymphocytes % 25.4 (24.0-44.0) % Monocytes % 7.6 (0.0-12.0) % Eosinophils % 2.0 (0.00-5.0) % Basophils % 0.5 (0.0-0.4) % Absolute Granulocytes 5.39 (1.4-6.9) Basophils # 0.04 (0-0.4) pO2/FiO2 Ratio 21.0 % VBG pH 7.27 L (7.32-7.42) VBG pCO2 at Pat Temp 57 H (42-55) mm/Hg VBG pO2 at Pat Temp 31 (25-40) mm/Hg VBG HCO3 26.2 (22-28) meq/L VBG O2 Sat (Evelyn) 60.9 L (95-100) VBG Base Excess -1.7 (-2.0-2.0) VBG Hemoglobin 18.2 VBG Carboxyhemoglobin 5.0 (0.0-6.9) % T HGB POC Potassium 5.2 H (3.5-5.1) Sodium 128 L (137-145) mmol/L Potassium 5.3 H (3.5-5.1) mmol/L Chloride 82 L (98-107) mmol/L Carbon Dioxide 23 (22-30) mmol/L Anion Gap 27.6 H (5-15) MEQ/L BUN 15 (9-20) mg/dL Creatinine 0.92 (0.66-1.25) mg/dL Estimated GFR > 60.0 ML/MIN Glucose 1075 H* (74-106) mg/dL Calcium 10.1 (8.4-10.2) mg/dL Magnesium 2.4 H (1.6-2.3) mg/dL Total Bilirubin 0.90 (0.2-1.3) mg/dL AST 21 (17-59) U/L ALT 29 (0-50) U/L Alkaline Phosphatase 167 H (38-126) U/L Serum Total Protein 7.8 (6.3-8.2) g/dL Albumin 5.1 H (3.5-5.0) g/dL Lipase 36 (23-300) U/L Urine Color (YELLOW) Urine Appearance (CLEAR) Urine pH (5-6) Ur Specific [place] (1.005-1.025) Urine Protein (Negative) Urine Ketones (NEGATIVE) Urine Blood (0-5) Konrad/ul Urine Nitrite (NEGATIVE) Urine Bilirubin (NEGATIVE) Urine Urobilinogen (0-1) mg/dL Ur Leukocyte Esterase (NEGATIVE) Urine WBC (Auto) (0-5) /HPF Urine RBC (Auto) (0-2) /HPF U Epithel Cells (Auto) (FEW) /HPF Urine Bacteria (Auto) (NEGATIVE) /HPF Urine Culture Reflexed (NO) Urine Glucose (NEGATIVE) mg/dL 03/03/21 Range/Units 10:25 WBC (4.0-10.5) K/mm3 RBC (4.1-5.6) M/mm3 Hgb (12.5-18.0) gm/dl Hct (42-50) % MCV (78-100) fl MCH (26-32) pg MCHC (32-36) g/dl RDW (11.5-14.0) % Plt Count (150-450) K/mm3 MPV (7.5-11.0) fl Gran % (36.0-66.0) % Eos # (Auto) (0-0.5) Absolute Lymphs (auto) (1.0-4.6) Absolute Monos (auto) (0.0-1.3) Lymphocytes % (24.0-44.0) % Monocytes % (0.0-12.0) % Eosinophils % (0.00-5.0) % Basophils % (0.0-0.4) % Absolute Granulocytes (1.4-6.9) Basophils # (0-0.4) pO2/FiO2 Ratio % VBG pH (7.32-7.42) VBG pCO2 at Pat Temp (42-55) mm/Hg VBG pO2 at Pat Temp (25-40) mm/Hg VBG HCO3 (22-28) meq/L VBG O2 Sat (Evelyn) (95-100) VBG Base Excess (-2.0-2.0) VBG Hemoglobin VBG Carboxyhemoglobin (0.0-6.9) % T HGB POC Potassium (3.5-5.1) Sodium (137-145) mmol/L Potassium (3.5-5.1) mmol/L Chloride (98-107) mmol/L Carbon Dioxide (22-30) mmol/L Anion Gap (5-15) MEQ/L BUN (9-20) mg/dL Creatinine (0.66-1.25) mg/dL Estimated GFR ML/MIN Glucose (74-106) mg/dL Calcium (8.4-10.2) mg/dL Magnesium (1.6-2.3) mg/dL Total Bilirubin (0.2-1.3) mg/dL AST (17-59) U/L ALT (0-50) U/L Alkaline Phosphatase (38-126) U/L Serum Total Protein (6.3-8.2) g/dL Albumin (3.5-5.0) g/dL Lipase (23-300) U/L Urine Color COLORLESS (YELLOW) Urine Appearance CLEAR (CLEAR) Urine pH 6.0 (5-6) Ur Specific [place] 1.026 (1.005-1.025) Urine Protein NEGATIVE (Negative) Urine Ketones SMALL (NEGATIVE) Urine Blood NEGATIVE (0-5) Konrad/ul Urine Nitrite NEGATIVE (NEGATIVE) Urine Bilirubin NEGATIVE (NEGATIVE) Urine Urobilinogen NEGATIVE (0-1) mg/dL Ur Leukocyte Esterase NEGATIVE (NEGATIVE) Urine WBC (Auto) NONE (0-5) /HPF Urine RBC (Auto) NONE (0-2) /HPF U Epithel Cells (Auto) NONE (FEW) /HPF Urine Bacteria (Auto) NONE (NEGATIVE) /HPF Urine Culture Reflexed NO (NO) Urine Glucose >=500 (NEGATIVE) mg/dL - Progress Progress: re-examined Progress Note: 03/03/21 12:11 20 years old is evaluated for elevated blood glucose. Patient is given fluid boluses x2. Work-up showed blood glucose of 1075 with a gap of 27 and normal bicarb and small amount of ketones in urine. Patient has a venous pH of 7.27. I believe patient is DKA, started on insulin drip along with fluids. Discussed with Dr. Abbott and patient is being admitted. Discussed with : Gustavo Will see patient in: hospital (full admit) Counseled pt/family regarding: lab results, diagnosis, rad results - Departure Departure Disposition: In-patient Admission Clinical Impression: Ketoacidosis in diabetes mellitus Condition: Stable Critical Care Time: Yes Critical Care Time(excluding separately billable procedures): Critical 30-74 mins Referrals: KARUNA ADAMS [Primary Care Provider] -
[2021-03-03 10:36] LABS: Absolute Neutrophil Ct (ANC) 5.39 (1.4-6.9); Appearance CLEAR (CLEAR); BASOPHIL % 0.5 % (0.0-0.4); Basophil (Absolute #) 0.04 (0-0.4); Bilirubin NEGATIVE (NEGATIVE); Blood NEGATIVE Ery/ul (0-5); Eosinophil (Absolute #) 0.17 (0-0.5); Glucose >=500 mg/dL (NEGATIVE); Hematocrit 50.9 % (42-50); Hemoglobin 17.2 gm/dl (12.5-18.0); Ketones SMALL (NEGATIVE); Leukocyte Esterase NEGATIVE (NEGATIVE); Lymphocyte (Absolute #) 2.13 (1.0-4.6); Lymphocytes % 25.4 % (24.0-44.0); Mean Cell Volume 90.4 fl (78-100); Mean Corpuscular Hemoglobin 30.6 pg (26-32); Mean Corpuscular Hgb Concent. 33.8 g/dl (32-36); Mean Platelet Volume 13.3 fl (7.5-11.0); Monocyte (Absolute #) 0.64 (0.0-1.3); Monocytes % 7.6 % (0.0-12.0); Neutrophil % 64.5 % (36.0-66.0); Nitrite NEGATIVE (NEGATIVE); Platelet Count 230 K/mm3 (150-450); Protein,Urine Dip NEGATIVE (Negative); Red Blood Count 5.63 M/mm3 (4.1-5.6); Red Cell Distribution Width 11.8 % (11.5-14.0); Specific Gravity 1.026 (1.005-1.025); Urobilinogen NEGATIVE mg/dL (0-1); White Blood Count 8.4 K/mm3 (4.0-10.5)
[2021-03-03 10:38] LABS: VBG BASE EXCESS -1.7 (-2.0-2.0); VBG HCO3- 26.2 meq/L (22-28); VBG HEMOGLOBIN 18.2; VBG O2 SATURATION 60.9 (95-100); VBG POTASSIUM 5.2 (3.5-5.1); VBG pH 7.27 (7.32-7.42)
[2021-03-03 10:44] LABS: ALBUMIN 5.1 g/dL (3.5-5.0); ALKALINE PHOSPHATASE 167 U/L (38-126); ANION GAP 27.6 MEQ/L (5-15); BLOOD UREA NITROGEN 15 mg/dL (9-20); CHLORIDE 82 mmol/L (98-107); Calcium 10.1 mg/dL (8.4-10.2); Carbon Dioxide 23 mmol/L (22-30); Creatinine 1 0.92 mg/dL (0.66-1.25); EST GLOMERULAR FILTRATION RATE > 60.0 ML/MIN; LIPASE 36 U/L (23-300); MAGNESIUM 2.4 mg/dL (1.6-2.3); Potassium 5.3 mmol/L (3.5-5.1); SGOT/AST 21 U/L (17-59); SGPT/ALT 29 U/L (0-50); SODIUM 128 mmol/L (137-145); Total Protein 7.8 g/dL (6.3-8.2)
[2021-03-03 10:55] LABS: Glucose 1075 mg/dL (74-106)
[2021-03-03] MEDS: HUMULIN R 100 UNIT in Sodium Chloride 0.9% 100 ML BAG 100 ML IV PRN ×2 (11:14→15:30)
[2021-03-03] MEDS ORDERED: Zofran 4 MG/2 ML VIAL IV PRN (13:57)
[2021-03-03] MEDS ORDERED: TYLENOL 325 MG PO PRN (13:57)
[2021-03-03] MEDS ORDERED: MORPHINE SULFATE 2 MG INJ IV PRN (13:57)
[2021-03-03] MEDS ORDERED: POTASSIUM CHLORIDE 20 mEq IN WATER 100ML 100 ML IV PRN (14:52)
[2021-03-03] MEDS ORDERED: K-LYTE 25 MEQ PO PRN (14:53)
[2021-03-03] MEDS ORDERED: Magnesium 1 Gm / 100 Ml D5W*** 100 ML IV PRN (14:55)
[2021-03-03] MEDS ORDERED: Sodium Chloride 0.9% 1000 ML 1,000 ML IV SCH (15:00)
[2021-03-03 15:12] LABS: ALBUMIN 4.3 g/dL (3.5-5.0); ALKALINE PHOSPHATASE 114 U/L (38-126); ANION GAP 13.1 MEQ/L (5-15); BLOOD UREA NITROGEN 11 mg/dL (9-20); CHLORIDE 101 mmol/L (98-107); Calcium 9.4 mg/dL (8.4-10.2); Carbon Dioxide 28 mmol/L (22-30); Creatinine 1 0.55 mg/dL (0.66-1.25); EST GLOMERULAR FILTRATION RATE > 60.0 ML/MIN; Glucose 273 mg/dL (74-106); Potassium 3.8 mmol/L (3.5-5.1); SGOT/AST 18 U/L (17-59); SGPT/ALT 25 U/L (0-50); SODIUM 138 mmol/L (137-145)
[2021-03-03] MEDS ORDERED: HUMALOG SQ PRN (15:23)
[2021-03-03] MEDS ORDERED: Lantus Insulin SQ SCH (16:00)
[2021-03-03 18:15] VITALS: O2SAT 98
[2021-03-03 20:05] VITALS: BP 110/66; PULSE 66
[2021-03-03] MEDS ORDERED: ZOCOR 20MG PO SCH (22:00)
[2021-03-03] MEDS ORDERED: NON-FORMULARY ITEM (Atorvastatin Calcium [Atorvastatin Calcium] 20 MG) PO SCH (22:00)
[2021-03-04] MEDS ORDERED: PROTONIX 40 MG IV IV SCH (10:00)
== END 2021-03-03 21:13 | disposition left against medical advice (07) | DRG 639 ==
LOC: ED 09:38 → ICU 13:47
PROVIDERS: ADMIT Family Medicine; ATTEND Family Medicine
DX: E10.10 Type 1 diabetes mellitus with ketoacidosis without coma (principal); Z20.828 Contact with and (suspected) exposure to other viral communicable diseases
CPT/HCPCS: 36000; 36415; 80053; 81001; 82805; 82947; 83690; 83735; 85025; 93005; 96360; 99285; 99291; J1817; U0003; A9270-GY

== ENCOUNTER 2021-07-15 18:53 | Emergency (ER) | payer OTHER ==
[2021-07-15 19:18] VITALS: BP 122/75; PULSE 77; O2SAT 98
[2021-07-15] MEDS ORDERED: Augmentin 875-125 Tablet PO ONE (19:32)
[2021-07-15] MEDS ORDERED: TYLENOL 325 MG PO ONE (19:33)
--- NOTE | 2021-07-15 19:34 | ERPHSYRPT ---
- History of Present Illness Time Seen by Provider: 07/15/21 19:20 Source: patient Exam Limitations: no limitations Patient Subjective Stated Complaint: I have tooth pain on rt side upper and lower, hoping to get something for the pain Triage Nursing Assessment: pt c/o tooth pain to rt side, upper and lower. Pt states, "one tooth has a hole in it and one tooth is cracked". Pt hasn't really been taking anything for pain at home. Took Tylenol 2 days ago, but has primarily only been using oragel. Pt has not contacted a dentist yet as he was waiting to get a car, which he got today. Physician History: Patient is a 20-year-old male presents to our ED with complaints of dental pain. Patient believes he is developing a dental infection. Patient has had dental infections before with subsequent tooth extractions. Patient is experiencing the same symptoms. Pain started approximately 1 week ago. Patient has yet to see a dentist but currently now has the means to see a dentist. No trauma. No fever. No trismus. No headache. Symptoms are mild to moderate in intensity. No specific worsening or improving factors. Timing/Duration: week(s) (1 week ago) Severity: moderate Modifying Factors: Improves With: medication (Tylenol) Associated Symptoms: denies symptoms Allergies/Adverse Reactions: No Known Drug Allergies Allergy (Verified 07/15/21 19:23) Home Medications: Insulin Lispro [Humalog] 0 unit SQ DAILY 03/21/14 [History] Hx Tetanus, Diphtheria Vaccination/Date Given: Yes Hx Influenza Vaccination/Date Given: No Hx Pneumococcal Vaccination/Date Given: No Immunizations Up to Date: Yes Travel Risk - International Travel Have you traveled outside of the country in past 3 weeks: No - Coronavirus Screening Are you exhibiting any of the following symptoms?: No Close contact with a COVID-19 positive Pt in past 14-21 Days: No - Vaccine Status Have you recieved a Covid-19 vaccination: No - Review of Systems Constitutional: No Symptoms, No Fever, No Chills Eyes: No Symptoms Ears, Nose, & Throat: No Symptoms Respiratory: No Symptoms, No Cough, No Dyspnea Cardiac: No Symptoms, No Chest Pain, No Edema, No Syncope Abdominal/Gastrointestinal: No Symptoms, No Abdominal Pain, No Nausea, No Vomiting, No Diarrhea Genitourinary Symptoms: No Symptoms, No Dysuria Musculoskeletal: No Symptoms, No Back Pain, No Neck Pain Skin: No Symptoms, No Rash Neurological: No Symptoms, No Dizziness, No Focal Weakness, No Sensory Changes Psychological: No Symptoms Endocrine: No Symptoms Hematologic/Lymphatic: No Symptoms Immunological/Allergic: No Symptoms All Other Systems: Reviewed and Negative - Past Medical History Pertinent Past Medical History: Yes Neurological History: Seizures ENT History: No Pertinent History Cardiac History: No Pertinent History Respiratory History: No Pertinent History Endocrine Medical History: Diabetes Type I, Hypoglycemia Musculoskeletal History: No Pertinent History GI Medical History: No Pertinent History History: No Pertinent History Psycho-Social History: Attention Deficit Disorder, Depression Male Reproductive Disorders: No Pertinent History Other Medical History: 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 NO LONGER TAKES MEDS FOR ADHD. - Past Surgical History Past Surgical History: No Neuro Surgical History: No Pertinent History Cardiac: No Pertinent History Respiratory: No Pertinent History Gastrointestinal: No Pertinent History Genitourinary: No Pertinent History Musculoskeletal: No Pertinent History Male Surgical History: No Pertinent History - Social History Smoking Status: Current every day smoker How long have you smoked: 7 yrs Exposure to second hand smoke: Yes Drug Use: none Patient Lives Alone: No Significant Family History: no pertinent family hx - Nursing Vital Signs Nursing Vital Signs: Initial Vital Signs Temperature 98.3 F 07/15/21 19:16 Pulse Rate 77 07/15/21 19:16 Respiratory Rate 16 07/15/21 19:16 Blood Pressure 122/75 07/15/21 19:16 O2 Sat by Pulse Oximetry 98 07/15/21 19:16 Pain Scale Pain Intensity 6 - Physical Exam General Appearance: no apparent distress, alert Eye Exam: PERRL/EOMI, eyes nml inspection Ears, Nose, Throat Exam: normal ENT inspection, TMs normal, pharynx normal, moist mucous membranes, other (Right maxillary mandibular molar gingiva appears slightly erythematous versus the contralateral side. No obvious abscess observed. The gingiva adjacent to tooth #1 and tooth 18 are tender.) Neck Exam: normal inspection, non-tender, supple, full range of motion Respiratory Exam: normal breath sounds, lungs clear, No respiratory distress Cardiovascular Exam: regular rate/rhythm, normal heart sounds, normal peripheral pulses Gastrointestinal/Abdomen Exam: soft, normal bowel sounds, No tenderness, No mass Back Exam: normal inspection, normal range of motion, No CVA tenderness, No vertebral tenderness Extremity Exam: normal inspection, normal range of motion, pelvis stable Neurologic Exam: alert, oriented x 3, cooperative, normal mood/affect, sensation nml, No motor deficits Skin Exam: normal color, warm, dry, No rash Lymphatic Exam: No adenopathy SpO2 Interpretation: normal SpO2: 98 O2 Delivery: Room Air - Course Nursing assessment & vital signs reviewed: Yes Ordered Tests: Medication Summary Discontinued Medications Generic Name Dose Route Start Last Admin Trade Name Miguel PRN Reason Stop Dose Admin Acetaminophen 975 mg 07/15/21 19:33 Acetaminophen 325 Mg Tablet PO 07/15/21 19:34 STAT ONE Amoxicillin/Clavulanate Potassium 875 mg 07/15/21 19:32 Amox Tr/Potassium Clavulanate 875 Mg Tablet PO 07/15/21 19:33 STAT ONE - Progress Progress: improved Progress Note: Patient declined Bicillin. Patient received Augmentin in our ED. A prescription for the same was forwarded to patient's pharmacy. Patient also received Tylenol for pain as this is helped his pain earlier wound administered. Patient will follow up with a dentist. He voices no other complaints or concerns at this time. No indication for further work-up. Will discharge at this time. Portions of this note were created with voice recognition technology. There may be grammatical, spelling, punctuation or sound alike errors 07/15/21 19:40 Counseled pt/family regarding: diagnosis, need for follow-up - Departure Departure Disposition: Home Clinical Impression: Pain, dental, Dental infection Condition: Stable Critical Care Time: No Referrals: KARUNA ADAMS [Primary Care Provider] - Follow up/PCP as directed Additional Instructions: Discharge/Care Plan MAGDALENA ZHOU was seen on 07/15/21 in the Emergency Room. The patient was counseled regarding Diagnosis,Lab results, Imaging studies, need for follow up and when to return to the Emergency Room. Prescriptions given: Discharge Note I have spoken with the patient and/or caregivers. I have explained the patient's condition, diagnosis and treatment plan based on the information available to me at this time. I have answered the patient's and/or caregiver's questions and addressed any concerns. The patient and/or caregivers have as good understanding of the patient's diagnosis, condition and treatment plan as can be expected at this point. The vital signs have been stable. The patient's condition is stable and appropriate for discharge from the emergency department. The patient will pursue further outpatient evaluation with the primary care physician or other designated or consulting physician as outlined in the discharge instructions. The patient and/or caregivers are agreeable to this plan of care and follow-up instructions have been explained in detail. The patient and/or caregivers have received these instruction. The patient/and or caregivers are aware that any significant change in condition or worsening of symptoms should prompt an immediate return to this or the closest emergency department or call 911.
[2021-07-15] MEDS ORDERED: TYLENOL 325 MG ONE (19:49)
[2021-07-15] MEDS ORDERED: Augmentin 875-125 Tablet ONE (19:49)
== END 2021-07-15 20:00 | disposition home or self-care (01) ==
LOC: ED 18:53
DX: K04.7 Periapical abscess without sinus (principal); E10.8 Type 1 diabetes mellitus with unspecified complications; Z79.4 Long term (current) use of insulin; Z72.0 Tobacco use
CPT/HCPCS: 99283; A9270-GY

== ENCOUNTER 2021-08-20 20:55 | Inpatient (IN) | payer OTHER ==
[2021-08-20] MEDS ORDERED: Zofran 4 MG/2 ML VIAL IV ONE (21:15)
[2021-08-20] MEDS ORDERED: Sodium Chloride 0.9% 1000 ML 1,000 ML IV STA (21:15)
--- NOTE | 2021-08-20 21:16 | ERPHSYRPT ---
- History of Present Illness Time Seen by Provider: 08/20/21 21:14 Source: patient, EMS Exam Limitations: no limitations Physician History: The patient is a 20-year-old male with a past medical significant for insulin- dependent diabetes mellitus for which he uses an insulin pump presents with a chief complaint of abdominal pain. He had secondary complaints of nausea vomiting. Onset reported was this morning after he reportedly drank some apple juice. Of note, the patient notes that he has been hyperglycemic despite wearing an insulin pump. He reportedly moved his needle site from his left lower quadrant to his right lower quadrant yesterday. Of note, the patient reports that he has not checked his glucose in 6 months and he has not bolused himself with his fast acting insulin about the same time and states that his basal rate reportedly controls his glucose despite him not checking his blood sugars regularly. In addition to the above complaints, he is also endorsed increased thirst and polyuria. He denies fever, chills, diarrhea. His senior biostatistician is brandon and Marilee Mejia. He was transported to the emergency department by EMS and received 1 L of IV fluids and had IV access established. Associated Symptoms: nausea, vomiting, abdominal pain Allergies/Adverse Reactions: No Known Drug Allergies Allergy (Verified 08/20/21 21:05) Home Medications: Insulin Lispro [Humalog] 0 unit SQ DAILY 03/21/14 [History] Hx Tetanus, Diphtheria Vaccination/Date Given: Yes Hx Influenza Vaccination/Date Given: No Hx Pneumococcal Vaccination/Date Given: No Travel Risk - Vaccine Status Have you recieved a Covid-19 vaccination: No - Review of Systems Constitutional: No Fever, No Chills Eyes: No Symptoms Ears, Nose, & Throat: No Symptoms Respiratory: No Symptoms, No Cough, No Dyspnea Cardiac: No Chest Pain, No Edema Abdominal/Gastrointestinal: Abdominal Pain, Nausea, Vomiting, No Diarrhea Genitourinary Symptoms: Frequency, Other (Polyuria) Skin: No Symptoms Neurological: No Symptoms Psychological: No Symptoms Endocrine: Polyuria, Polydipsia Hematologic/Lymphatic: No Symptoms All Other Systems: Reviewed and Negative - Past Medical History Pertinent Past Medical History: Yes Neurological History: Seizures ENT History: No Pertinent History Cardiac History: No Pertinent History Respiratory History: No Pertinent History Endocrine Medical History: Diabetes Type I, Hypoglycemia Musculoskeletal History: No Pertinent History GI Medical History: No Pertinent History History: No Pertinent History Psycho-Social History: Attention Deficit Disorder, Depression Male Reproductive Disorders: No Pertinent History Other Medical History: 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 NO LONGER TAKES MEDS FOR ADHD. - Past Surgical History Past Surgical History: No Neuro Surgical History: No Pertinent History Cardiac: No Pertinent History Respiratory: No Pertinent History Gastrointestinal: No Pertinent History Genitourinary: No Pertinent History Musculoskeletal: No Pertinent History Male Surgical History: No Pertinent History - Social History Smoking Status: Current every day smoker How long have you smoked: 7 yrs Exposure to second hand smoke: Yes Drug Use: none Patient Lives Alone: No Significant Family History: no pertinent family hx - Nursing Vital Signs Nursing Vital Signs: Initial Vital Signs Temperature 98.3 F 08/20/21 20:55 Pulse Rate 120 H 08/20/21 20:55 Respiratory Rate 20 08/20/21 20:55 Blood Pressure 127/51 08/20/21 20:55 O2 Sat by Pulse Oximetry 95 08/20/21 20:55 Pain Scale Pain Intensity 0 - Physical Exam General Appearance: alert, thin, other (Ill-appearing) Eye Exam: PERRL/EOMI, EOM palsy/anisocoria Ears, Nose, Throat Exam: dry mucous membranes Neck Exam: normal inspection, non-tender, supple Respiratory Exam: normal breath sounds, chest tenderness, other (Kussmaul respirations present) Cardiovascular Exam: normal heart sounds, normal peripheral pulses, tachycardia, capillary refill <2 sec Gastrointestinal/Abdomen Exam: soft, normal bowel sounds, other (Insulin pump site/needle site noted the RLQ. Site was examined and it appears the needle was not bent), No tenderness, No distention, No mass, No guarding Male Genitalia Exam: normal genitalia Rectal Exam: deferred Back Exam: normal inspection Extremity Exam: normal inspection Neurologic Exam: alert, oriented x 3, cooperative Skin Exam: normal color, warm, dry, No rash SpO2 Interpretation: normal O2 Delivery: Room Air - Course Nursing assessment & vital signs reviewed: Yes EKG Interpreted by Me: RATE ([id number]), Sinus Tach, NORMAL AXIS, NORMAL QRS, Other (negative for STEMI) - Radiology Exams Chest X-ray Interpretation: Interpreted by me, Reviewed by me, Negative - CT Exams Abdomen/Pelvis CT Interpretation: Negative, Tele-radiologist Report Ordered Tests: Active Orders 24 hr Category Date Time Status Bedrest TOLERATED Activity 08/21/21 02:48 Active Cheerleading Coach STAT Care 08/20/21 22:08 Completed Code Status Order ROUTINE Care 08/21/21 02:48 Active EKG-ER Only STAT Care 08/20/21 22:07 Completed IV Insertion STAT Care 08/20/21 21:15 Completed IV Insertion-2nd Peripheral ROUTINE Care 08/21/21 02:48 Active POCT Glucose Check ACHS Care 08/21/21 02:48 Active Telemetry PROTOCOL Care 08/21/21 02:48 Active Vital Signs Q2H Care 08/21/21 02:48 Active ABDOMEN AND PELVIS W CONTRAST [CT] Stat Exams 08/20/21 23:13 Taken CHEST 1 VIEW (PORTABLE) Stat Exams 08/20/21 22:32 Taken BMP Routine Lab 08/21/21 04:00 Ordered BMP Routine Lab 08/21/21 06:00 Ordered BMP Stat Lab 08/20/21 21:30 Completed BMP Stat Lab 08/21/21 00:45 Completed BMP/HFII Routine Lab 08/21/21 02:48 Ordered CBC AM.LAB Lab 08/21/21 04:00 Ordered CBC W DIFF Stat Lab 08/20/21 21:30 Completed Glucose,Critical Care Routine Lab 08/21/21 02:48 Ordered Hepatic Function Panel Stat Lab 08/20/21 21:30 Completed LIPASE Stat Lab 08/20/21 21:30 Completed MAGNESIUM AM.LAB Lab 08/21/21 04:00 Ordered MAGNESIUM Stat Lab 08/20/21 21:35 Completed Manual Differential NC Stat Lab 08/20/21 21:30 Completed PHOSPHOROUS AM.LAB Lab 08/21/21 04:00 Ordered PHOSPHOROUS Stat Lab 08/20/21 21:35 Completed POCT GLUCOSE Stat Lab 08/21/21 00:53 Completed POCT GLUCOSE Stat Lab 08/21/21 02:02 Completed UA W/RFX UR CULTURE Stat Lab 08/20/21 22:35 Completed VENOUS BLOOD GAS Stat Lab 08/20/21 23:36 Completed Pulse Oximetry ROUTINE RT 08/21/21 02:48 Active Transfer Order Routine Transfer 08/21/21 Completed Medication Summary Generic Name Dose Route Start Last Admin Trade Name Freq PRN Reason Stop Dose Admin Insulin Human Regular 100 unit 100 mls @ 6.82 mls/hr 08/21/21 02:48 / Sodium Chloride IV 09/20/21 02:47 .[id number] PRN DKA/HYPERGLYCEMIA Protocol 0.1 UNIT/KG/HR Potassium Chloride/Sodium Chloride 1,000 mls @ 200 mls/hr 08/21/21 02:48 Sodium Chloride 0.9% W/ 20 Meq Kcl/Liter IV 09/20/21 02:47 .Q5H BLAKE Discontinued Medications Generic Name Dose Route Start Last Admin Trade Name Freq PRN Reason Stop Dose Admin Albuterol Sulfate Confirm 08/20/21 22:47 Albuterol Solution 2.5 Mg/0.5 Ml Ud Solution Administered 08/20/21 22:48 Dose 2.5 mg IH .STK-MED ONE Albuterol Sulfate Confirm 08/20/21 22:47 Albuterol Sulfate 2.5 Mg/3 Ml Neb Administered 08/20/21 22:48 Dose 2.5 mg IH .STK-MED ONE Albuterol/Ipratropium Confirm 08/20/21 22:47 Ipratropium/Albuterol Sulfate 3 Ml Ampul.Neb Administered 08/20/21 22:48 Dose 3 ml IH .STK-MED ONE Sodium Chloride 1,000 mls @ 999 mls/hr 08/20/21 21:15 08/20/21 22:46 Sodium Chloride 0.9% 1000 Ml IV 08/20/21 22:15 Infused .Q1H1M STA Infusion Sodium Chloride Confirm 08/20/21 21:28 Sodium Chloride 0.9% 1000 Ml Administered 08/20/21 21:29 Dose 1,000 mls @ ud .ROUTE .STK-MED ONE Insulin Human Regular 100 unit 100 mls @ 6.82 mls/hr 08/20/21 22:22 08/21/21 02:03 / Sodium Chloride IV 09/19/21 22:21 0.07 unit/kg/hr .[id number] PRN 4.8 mls/hr DKA/HYPERGLYCEMIA Titration Protocol 0.1 UNIT/KG/HR Potassium Chloride/Sodium Chloride 1,000 mls @ 200 mls/hr 08/20/21 22:30 08/20/21 23:42 Sodium Chloride 0.9% W/ 20 Meq Kcl/Liter IV 09/19/21 22:29 200 mls/hr .Q5H BLAKE Administration Sodium Chloride Confirm 08/20/21 23:31 Sodium Chloride 0.9% 100 Ml Bag Administered 08/20/21 23:32 Dose 100 mls @ ud .ROUTE .STK-MED ONE Potassium Chloride/Sodium Chloride Confirm 08/20/21 23:42 Sodium Chloride 0.9% W/ 20 Meq Kcl/Liter Administered 08/20/21 23:43 Dose 1,000 mls @ ud IV .STK-MED ONE Insulin Human Regular Confirm 08/20/21 23:31 Insulin Regular, Human 1 Unit Administered 08/20/21 23:32 Dose 100 unit .ROUTE .STK-MED ONE Ondansetron HCl 4 mg 08/20/21 21:15 08/20/21 21:32 Ondansetron Hcl 4 Mg/2 Ml Vial IV 08/20/21 21:16 4 mg STAT ONE Administration Ondansetron HCl Confirm 08/20/21 21:28 Ondansetron Hcl 4 Mg/2 Ml Vial Administered 08/20/21 21:29 Dose 4 mg .ROUTE .STK-MED ONE Lab/Rad Data: Laboratory Result Diagrams 08/20/21 21:30 08/21/21 00:45 Laboratory Results 08/21/21 08/21/21 08/21/21 Range/Units 02:02 01:27 00:53 WBC (4.0-10.5) K/mm3 RBC (4.1-5.6) M/mm3 Hgb (12.5-18.0) gm/dl Hct (42-50) % MCV (78-100) fl MCH (26-32) pg MCHC (32-36) g/dl RDW (11.5-14.0) % Plt Count (150-450) K/mm3 MPV (7.5-11.0) fl Segmented Neutrophils (36.-66.) % Band Neutrophils (0.0-2.0) % Lymphocytes (Manual) (24-44) % Monocytes (Manual) (0.0-12.0) % Platelet Estimate (NORMAL) RBC Morphology pO2/FiO2 Ratio % VBG pH (7.32-7.42) VBG pCO2 at Pat Temp (42-55) mm/Hg VBG pO2 at Pat Temp (25-40) mm/Hg VBG HCO3 (22-28) meq/L VBG O2 Sat (Evelyn) (95-100) VBG Base Excess (-2.0-2.0) VBG Hemoglobin VBG Carboxyhemoglobin (0.0-6.9) % T HGB POC Potassium (3.5-5.1) Sodium (137-145) mmol/L Potassium (3.5-5.1) mmol/L Chloride (98-107) mmol/L Carbon Dioxide (22-30) mmol/L Anion Gap (5-15) MEQ/L BUN (9-20) mg/dL Creatinine (0.66-1.25) mg/dL Estimated GFR ML/MIN Glucose (74-106) mg/dL POC Glucometer 376 H 482 H (74 to 106) mg/dL Calcium (8.4-10.2) mg/dL Phosphorus (2.5-4.5) mg/dL Magnesium (1.6-2.3) mg/dL Total Bilirubin (0.2-1.3) mg/dL Direct Bilirubin (0.0-0.4) mg/dL AST (17-59) U/L ALT (0-50) U/L Alkaline Phosphatase (38-126) U/L Serum Total Protein (6.3-8.2) g/dL Albumin (3.5-5.0) g/dL Lipase (23-300) U/L Urine Color (YELLOW) Urine Appearance (CLEAR) Urine pH (5-6) Ur Specific [place] (1.005-1.025) Urine Protein (Negative) Urine Ketones (NEGATIVE) Urine Blood (0-5) Konrad/ul Urine Nitrite (NEGATIVE) Urine Bilirubin (NEGATIVE) Urine Urobilinogen (0-1) mg/dL Ur Leukocyte Esterase (NEGATIVE) Urine WBC (Auto) (0-5) /HPF Urine RBC (Auto) (0-2) /HPF U Epithel Cells (Auto) (FEW) /HPF Urine Bacteria (Auto) (NEGATIVE) /HPF Urine Culture Reflexed (NO) Urine Glucose (NEGATIVE) mg/dL Influenza Type A Ag NEGATIVE (NEGATIVE) Influenza Type B Ag NEGATIVE (NEGATIVE) RSV (PCR) NEGATIVE (Negative) SARS-CoV-2 (PCR) NEGATIVE (NEGATIVE) 08/21/21 08/20/21 08/20/21 Range/Units 00:45 23:36 22:35 WBC (4.0-10.5) K/mm3 RBC (4.1-5.6) M/mm3 Hgb (12.5-18.0) gm/dl Hct (42-50) % MCV (78-100) fl MCH (26-32) pg MCHC (32-36) g/dl RDW (11.5-14.0) % Plt Count (150-450) K/mm3 MPV (7.5-11.0) fl Segmented Neutrophils (36.-66.) % Band Neutrophils (0.0-2.0) % Lymphocytes (Manual) (24-44) % Monocytes (Manual) (0.0-12.0) % Platelet Estimate (NORMAL) RBC Morphology pO2/FiO2 Ratio 21.0 % VBG pH 7.06 L* (7.32-7.42) VBG pCO2 at Pat Temp 23 L* (42-55) mm/Hg VBG pO2 at Pat Temp 78 H (25-40) mm/Hg VBG HCO3 6.5 L* (22-28) meq/L VBG O2 Sat (Evelyn) 95.5 (95-100) VBG Base Excess -22.3 L (-2.0-2.0) VBG Hemoglobin 15.2 VBG Carboxyhemoglobin 3.1 (0.0-6.9) % T HGB POC Potassium 6.3 H* (3.5-5.1) Sodium 139 (137-145) mmol/L Potassium 6.7 H* (3.5-5.1) mmol/L Chloride 104 (98-107) mmol/L Carbon Dioxide 8 L* (22-30) mmol/L Anion Gap 33.7 H (5-15) MEQ/L BUN 32 H (9-20) mg/dL Creatinine 1.27 H (0.66-1.25) mg/dL Estimated GFR > 60.0 ML/MIN Glucose 531 H* (74-106) mg/dL POC Glucometer (74 to 106) mg/dL Calcium 8.9 (8.4-10.2) mg/dL Phosphorus (2.5-4.5) mg/dL Magnesium (1.6-2.3) mg/dL Total Bilirubin (0.2-1.3) mg/dL Direct Bilirubin (0.0-0.4) mg/dL AST (17-59) U/L ALT (0-50) U/L Alkaline Phosphatase (38-126) U/L Serum Total Protein (6.3-8.2) g/dL Albumin (3.5-5.0) g/dL Lipase (23-300) U/L Urine Color STRAW (YELLOW) Urine Appearance CLEAR (CLEAR) Urine pH 5.0 (5-6) Ur Specific [place] 1.017 (1.005-1.025) Urine Protein NEGATIVE (Negative) Urine Ketones MODERATE (NEGATIVE) Urine Blood NEGATIVE (0-5) Konrad/ul Urine Nitrite NEGATIVE (NEGATIVE) Urine Bilirubin NEGATIVE (NEGATIVE) Urine Urobilinogen NEGATIVE (0-1) mg/dL Ur Leukocyte Esterase NEGATIVE (NEGATIVE) Urine WBC (Auto) NONE (0-5) /HPF Urine RBC (Auto) NONE (0-2) /HPF U Epithel Cells (Auto) NONE (FEW) /HPF Urine Bacteria (Auto) NONE (NEGATIVE) /HPF Urine Culture Reflexed NO (NO) Urine Glucose >=500 (NEGATIVE) mg/dL Influenza Type A Ag (NEGATIVE) Influenza Type B Ag (NEGATIVE) RSV (PCR) (Negative) SARS-CoV-2 (PCR) (NEGATIVE) 08/20/21 08/20/21 08/20/21 Range/Units 21:35 21:35 21:30 WBC (4.0-10.5) K/mm3 RBC (4.1-5.6) M/mm3 Hgb (12.5-18.0) gm/dl Hct (42-50) % MCV (78-100) fl MCH (26-32) pg MCHC (32-36) g/dl RDW (11.5-14.0) % Plt Count (150-450) K/mm3 MPV (7.5-11.0) fl Segmented Neutrophils (36.-66.) % Band Neutrophils (0.0-2.0) % Lymphocytes (Manual) (24-44) % Monocytes (Manual) (0.0-12.0) % Platelet Estimate (NORMAL) RBC Morphology pO2/FiO2 Ratio % VBG pH (7.32-7.42) VBG pCO2 at Pat Temp (42-55) mm/Hg VBG pO2 at Pat Temp (25-40) mm/Hg VBG HCO3 (22-28) meq/L VBG O2 Sat (Evelyn) (95-100) VBG Base Excess (-2.0-2.0) VBG Hemoglobin VBG Carboxyhemoglobin (0.0-6.9) % T HGB POC Potassium (3.5-5.1) Sodium 137 (137-145) mmol/L Potassium 5.8 H (3.5-5.1) mmol/L Chloride 101 (98-107) mmol/L Carbon Dioxide 7 L* (22-30) mmol/L Anion Gap 35.2 H (5-15) MEQ/L BUN 33 H (9-20) mg/dL Creatinine 1.23 (0.66-1.25) mg/dL Estimated GFR > 60.0 ML/MIN Glucose 573 H* (74-106) mg/dL POC Glucometer (74 to 106) mg/dL Calcium 9.4 (8.4-10.2) mg/dL Phosphorus 9.2 H (2.5-4.5) mg/dL Magnesium 2.0 (1.6-2.3) mg/dL Total Bilirubin 0.50 (0.2-1.3) mg/dL Direct Bilirubin 0.3 (0.0-0.4) mg/dL AST 25 (17-59) U/L ALT 26 (0-50) U/L Alkaline Phosphatase 160 H (38-126) U/L Serum Total Protein 7.7 (6.3-8.2) g/dL Albumin 4.9 (3.5-5.0) g/dL Lipase 22 L (23-300) U/L Urine Color (YELLOW) Urine Appearance (CLEAR) Urine pH (5-6) Ur Specific [place] (1.005-1.025) Urine Protein (Negative) Urine Ketones (NEGATIVE) Urine Blood (0-5) Konrad/ul Urine Nitrite (NEGATIVE) Urine Bilirubin (NEGATIVE) Urine Urobilinogen (0-1) mg/dL Ur Leukocyte Esterase (NEGATIVE) Urine WBC (Auto) (0-5) /HPF Urine RBC (Auto) (0-2) /HPF U Epithel Cells (Auto) (FEW) /HPF Urine Bacteria (Auto) (NEGATIVE) /HPF Urine Culture Reflexed (NO) Urine Glucose (NEGATIVE) mg/dL Influenza Type A Ag (NEGATIVE) Influenza Type B Ag (NEGATIVE) RSV (PCR) (Negative) SARS-CoV-2 (PCR) (NEGATIVE) 12/28/21 Range/Units 21:30 WBC 34.7 H* (4.0-10.5) K/mm3 RBC 5.22 (4.1-5.6) M/mm3 Hgb 16.4 (12.5-18.0) gm/dl Hct 51.4 H (42-50) % MCV 98.5 (78-100) fl MCH 31.4 (26-32) pg MCHC 31.9 L (32-36) g/dl RDW 12.3 (11.5-14.0) % Plt Count 308 (150-450) K/mm3 MPV 12.9 H (7.5-11.0) fl Segmented Neutrophils 85 H (36.-66.) % Band Neutrophils 8 H (0.0-2.0) % Lymphocytes (Manual) 4 L (24-44) % Monocytes (Manual) 3 (0.0-12.0) % Platelet Estimate NORMAL (NORMAL) RBC Morphology NORMAL pO2/FiO2 Ratio % VBG pH (7.32-7.42) VBG pCO2 at Pat Temp (42-55) mm/Hg VBG pO2 at Pat Temp (25-40) mm/Hg VBG HCO3 (22-28) meq/L VBG O2 Sat (Evelyn) (95-100) VBG Base Excess (-2.0-2.0) VBG Hemoglobin VBG Carboxyhemoglobin (0.0-6.9) % T HGB POC Potassium (3.5-5.1) Sodium (137-145) mmol/L Potassium (3.5-5.1) mmol/L Chloride (98-107) mmol/L Carbon Dioxide (22-30) mmol/L Anion Gap (5-15) MEQ/L BUN (9-20) mg/dL Creatinine (0.66-1.25) mg/dL Estimated GFR ML/MIN Glucose (74-106) mg/dL POC Glucometer (74 to 106) mg/dL Calcium (8.4-10.2) mg/dL Phosphorus (2.5-4.5) mg/dL Magnesium (1.6-2.3) mg/dL Total Bilirubin (0.2-1.3) mg/dL Direct Bilirubin (0.0-0.4) mg/dL AST (17-59) U/L ALT (0-50) U/L Alkaline Phosphatase (38-126) U/L Serum Total Protein (6.3-8.2) g/dL Albumin (3.5-5.0) g/dL Lipase (23-300) U/L Urine Color (YELLOW) Urine Appearance (CLEAR) Urine pH (5-6) Ur Specific [place] (1.005-1.025) Urine Protein (Negative) Urine Ketones (NEGATIVE) Urine Blood (0-5) Konrad/ul Urine Nitrite (NEGATIVE) Urine Bilirubin (NEGATIVE) Urine Urobilinogen (0-1) mg/dL Ur Leukocyte Esterase (NEGATIVE) Urine WBC (Auto) (0-5) /HPF Urine RBC (Auto) (0-2) /HPF U Epithel Cells (Auto) (FEW) /HPF Urine Bacteria (Auto) (NEGATIVE) /HPF Urine Culture Reflexed (NO) Urine Glucose (NEGATIVE) mg/dL Influenza Type A Ag (NEGATIVE) Influenza Type B Ag (NEGATIVE) RSV (PCR) (Negative) SARS-CoV-2 (PCR) (NEGATIVE) - Progress Progress: unchanged, improved Progress Note: 08/21/21 00:[address] Valderrama, family medicine physician, on-call for non-doc, and discussed the case with her. She agreed to admit to the ICU. Requested BMP q 2 hrs. Okay with 0.9 Na with 20 meq of KCl at 200 ml. If patient glucose drops to 200 then start D5% with NS and recheck BGL in 1 hr. 08/21/21 02:54 The patient presents with a complaint of abdominal pain and nausea and vomiting and noted to have Kussmaul respirations in the context of hyperglycemia and was found to be in severe DKA. He is A&O x3 and not somnolent and seen to be tole rating this well, neuro standpoint. His leukocytosis may be secondary to a stress response from his DKA. He is afebrile and I cannot find a source of infection at this time. Chest x-ray was ordered to rule out pneumonia and showed no evidence of such and the patient tested negative for Covid. CT abdomen pelvis was pursued to eval for evidence of abdominal infection or surgical cause for his abdominal pain given his leukocytosis and was negative for such, specifically with no evidence of appendicitis. An insulin drip was initiated once the patient was confirmed not to have hyperkalemia. He received IV fluid rehydration in addition to Zofran for his complaint of nausea. Ultimately, the patient was admitted to the ICU for further evaluation and management. Discussed with Dr.: Other (Dr. Mak) Will see patient in: hospital (full admit) Counseled pt/family regarding: lab results, diagnosis, rad results - Departure Departure Disposition: In-patient Admission Clinical Impression: Ketoacidosis in diabetes mellitus, Noncompliance with medication regimen, Leukocytosis Condition: Serious Critical Care Time: Yes Critical Care Time(excluding separately billable procedures): Critical 30-74 mins
[2021-08-20] MEDS ORDERED: Sodium Chloride 0.9% 1000 ML 1,000 ML ONE (21:28)
[2021-08-20] MEDS ORDERED: Zofran 4 MG/2 ML VIAL ONE (21:28)
[2021-08-20 21:38] LABS: Hematocrit 51.4 % (42-50); Hemoglobin 16.4 gm/dl (12.5-18.0); Mean Cell Volume 98.5 fl (78-100); Mean Corpuscular Hemoglobin 31.4 pg (26-32); Mean Corpuscular Hgb Concent. 31.9 g/dl (32-36); Mean Platelet Volume 12.9 fl (7.5-11.0); Platelet Count 308 K/mm3 (150-450); Red Blood Count 5.22 M/mm3 (4.1-5.6); Red Cell Distribution Width 12.3 % (11.5-14.0)
[2021-08-20 21:45] LABS: White Blood Count 34.7 K/mm3 (4.0-10.5)
[2021-08-20 21:57] LABS: ALBUMIN 4.9 g/dL (3.5-5.0); ALKALINE PHOSPHATASE 160 U/L (38-126); ANION GAP 35.2 MEQ/L (5-15); BLOOD UREA NITROGEN 33 mg/dL (9-20); CHLORIDE 101 mmol/L (98-107); Calcium 9.4 mg/dL (8.4-10.2); Creatinine 1 1.23 mg/dL (0.66-1.25); Direct Bilirubin 0.3 mg/dL (0.0-0.4); EST GLOMERULAR FILTRATION RATE > 60.0 ML/MIN; LIPASE 22 U/L (23-300); Potassium 5.8 mmol/L (3.5-5.1); SGOT/AST 25 U/L (17-59); SGPT/ALT 26 U/L (0-50); SODIUM 137 mmol/L (137-145); Total Protein 7.7 g/dL (6.3-8.2)
[2021-08-20 22:12] LABS: Carbon Dioxide 7 mmol/L (22-30); Glucose 573 mg/dL (74-106)
[2021-08-20] MEDS ORDERED: HUMULIN R 100 UNIT in Sodium Chloride 0.9% 100 ML BAG 100 ML IV PRN (22:22)
[2021-08-20] MEDS ORDERED: Sodium Chloride 0.9% W/ 20 mEq KCl/LITER 1,000 ML IV SCH (22:30)
[2021-08-20 22:34] LABS: BAND 8 % (0.0-2.0); Lymphocytes 4 % (24-44); Monocyte 3 % (0.0-12.0); Neutrophils 85 % (36.-66.); Platelet Estimate NORMAL (NORMAL); Total Cells Counted 100
[2021-08-20] MEDS ORDERED: PROVENTIL Solution 2.5 MG/0.5 ML IH ONE (22:47)
[2021-08-20] MEDS ORDERED: PROVENTIL 2.5 MG/3 ML NEB IH ONE (22:47)
[2021-08-20] MEDS ORDERED: DUONEB 0.5-3 MG/3 ml Neb IH ONE (22:47)
[2021-08-20 22:48] LABS: Appearance CLEAR (CLEAR); Bilirubin NEGATIVE (NEGATIVE); Blood NEGATIVE Ery/ul (0-5); Glucose >=500 mg/dL (NEGATIVE); Ketones MODERATE (NEGATIVE); Leukocyte Esterase NEGATIVE (NEGATIVE); Nitrite NEGATIVE (NEGATIVE); Protein,Urine Dip NEGATIVE (Negative); Specific Gravity 1.017 (1.005-1.025); Urobilinogen NEGATIVE mg/dL (0-1)
[2021-08-20] MEDS ORDERED: Sodium Chloride 0.9% 100 ML BAG 100 ML ONE (23:31)
[2021-08-20] MEDS ORDERED: HUMULIN R ONE (23:31)
[2021-08-20 23:41] LABS: VBG BASE EXCESS -22.3 (-2.0-2.0); VBG CARBOXYHEMOGLOBIN 3.1 % T HGB (0.0-6.9); VBG HCO3- 6.5 meq/L (22-28); VBG HEMOGLOBIN 15.2; VBG O2 SATURATION 95.5 (95-100)
[2021-08-20 23:42] LABS: VBG POTASSIUM 6.3 (3.5-5.1); VBG pH 7.06 (7.32-7.42)
[2021-08-20] MEDS ORDERED: Sodium Chloride 0.9% W/ 20 mEq KCl/LITER 1,000 ML IV ONE (23:42)
[2021-08-21 01:03] LABS: ANION GAP 33.7 MEQ/L (5-15); BLOOD UREA NITROGEN 32 mg/dL (9-20); CHLORIDE 104 mmol/L (98-107); Calcium 8.9 mg/dL (8.4-10.2); Creatinine 1 1.27 mg/dL (0.66-1.25); EST GLOMERULAR FILTRATION RATE > 60.0 ML/MIN; SODIUM 139 mmol/L (137-145)
[2021-08-21 01:19] LABS: Glucose 531 mg/dL (74-106)
[2021-08-21 01:20] LABS: Carbon Dioxide 8 mmol/L (22-30); Potassium 6.7 mmol/L (3.5-5.1)
[2021-08-21 02:07] LABS: INFLUENZA A NEGATIVE (NEGATIVE); INFLUENZA B NEGATIVE (NEGATIVE); RESPIRATORY SYNCTIAL VIRUS NEGATIVE (Negative); SARS-CoV-2 Xpert Express NEGATIVE (NEGATIVE)
[2021-08-21] MEDS ORDERED: HUMULIN R 100 UNIT in Sodium Chloride 0.9% 100 ML BAG 100 ML IV PRN ×2 (02:48→04:21)
[2021-08-21] MEDS ORDERED: Sodium Chloride 0.9% W/ 20 mEq KCl/LITER 1,000 ML IV SCH (02:48)
[2021-08-21] MEDS ORDERED: Sodium Chloride 0.9% 1000 ML 1,000 ML ONE (03:33)
[2021-08-21] MEDS ORDERED: Sodium Chloride 0.9% 1000 ML 1,000 ML IV SCH (04:00)
[2021-08-21 04:09] LABS: Hematocrit 47.6 % (42-50); Hemoglobin 15.4 gm/dl (12.5-18.0); Mean Cell Volume 97.5 fl (78-100); Mean Corpuscular Hemoglobin 31.6 pg (26-32); Mean Corpuscular Hgb Concent. 32.4 g/dl (32-36); Mean Platelet Volume 12.4 fl (7.5-11.0); Platelet Count 299 K/mm3 (150-450); Red Blood Count 4.88 M/mm3 (4.1-5.6); Red Cell Distribution Width 12.5 % (11.5-14.0)
[2021-08-21 04:31] LABS: ANION GAP 27.8 MEQ/L (5-15); BLOOD UREA NITROGEN 26 mg/dL (9-20); CHLORIDE 107 mmol/L (98-107); Calcium 8.9 mg/dL (8.4-10.2); EST GLOMERULAR FILTRATION RATE > 60.0 ML/MIN; Glucose 316 mg/dL (74-106); Potassium 5.4 mmol/L (3.5-5.1); SODIUM 139 mmol/L (137-145)
[2021-08-21 04:38] LABS: Carbon Dioxide 10 mmol/L (22-30)
[2021-08-21 04:39] LABS: MAGNESIUM 2.1 mg/dL (1.6-2.3); PHOSPHOROUS 5.3 mg/dL (2.5-4.5)
[2021-08-21 04:58] LABS: Slide Review YES
[2021-08-21 06:41] LABS: ANION GAP 21.9 MEQ/L (5-15); BLOOD UREA NITROGEN 23 mg/dL (9-20); CHLORIDE 109 mmol/L (98-107); Calcium 8.9 mg/dL (8.4-10.2); Creatinine 1 0.94 mg/dL (0.66-1.25); EST GLOMERULAR FILTRATION RATE > 60.0 ML/MIN; Glucose 241 mg/dL (74-106); SODIUM 137 mmol/L (137-145)
[2021-08-21 06:51] LABS: Carbon Dioxide 12 mmol/L (22-30)
[2021-08-21] MEDS ORDERED: Dextrose 5%/Water IV Soln. 1000 ML 0 ML IV ONE (06:56)
[2021-08-21] MEDS ORDERED: Dextrose 5%-NS IV Solution 1000 ML 1,000 ML IV ONE (06:58)
[2021-08-21] MEDS ORDERED: D50W 50 ml Abboject IV PRN ×2 (06:59→07:15)
[2021-08-21] MEDS: Dextrose 5%-NS IV Solution 1000 ML 1,000 ML IV SCH ×2 (07:01→13:34)
[2021-08-21] MEDS ORDERED: ROCEPHIN 2 Gm-D5w 50ML BAG** 2 G/50 ML IVPB IV ONE (09:26)
[2021-08-21] MEDS ORDERED: TYLENOL EXTRA STRENGTH 500 MG PO PRN (09:29)
--- NOTE | 2021-08-21 09:37 | XRAY ---
Indication: Chest and abdomen pain. Vomiting. Comparison: None Portable apical lordotic chest demonstrates normal heart, lungs, and bony thorax.
--- NOTE | 2021-08-21 09:37 | XRAY ---
Indication: Abdomen pain, nausea, and vomiting. DKA. Multiple contiguous axial images obtained through the abdomen and pelvis using 80 cc Isovue 370 contrast. Comparison: June 26, 2015. Patient's arms produces beam artifact. Lung bases remain clear. Heart is not enlarged. Stomach is now moderately fluid distended either from recent ingestion versus gastritis versus gastroparesis. Noncontrasted bowel loops nonobstructed with normal appendix. Again mild diffuse scattered colonic fecal debris throughout. No free fluid/air. Liver now demonstrates mild diffuse fatty attenuation. Remaining liver, gallbladder, pancreas, spleen, adrenal glands, kidneys, ureters, bladder, and aorta are unremarkable. No pathologic retroperitoneal lymphadenopathy. Osseous structures intact. Impression: 1. Beam artifact from patient's arms. 2. Fluid distended stomach either from recent ingestion versus gastritis versus gastroparesis. 3. Again mild diffuse fecal stasis. 4. Mild fatty liver. Comment: Preliminary interpretation made by [facility]. No critical discrepancy.
[2021-08-21] MEDS ORDERED: PROTONIX 40 MG IV IV SCH (10:00)
[2021-08-21] MEDS ORDERED: Zithromax 500 MG/ 250 ML NaCl Premix 500 MG/250 ML IVPB IV SCH (10:00)
[2021-08-21 10:18] LABS: AMYLASE 110 U/L (30-110); LIPASE 85 U/L (23-300)
[2021-08-21 10:23] LABS: ANION GAP 15.9 MEQ/L (5-15); BLOOD UREA NITROGEN 23 mg/dL (9-20); CHLORIDE 109 mmol/L (98-107); Calcium 8.4 mg/dL (8.4-10.2); Carbon Dioxide 17 mmol/L (22-30); Creatinine 1 0.89 mg/dL (0.66-1.25); EST GLOMERULAR FILTRATION RATE > 60.0 ML/MIN; Glucose 237 mg/dL (74-106); Potassium 4.6 mmol/L (3.5-5.1); SODIUM 137 mmol/L (137-145)
[2021-08-21] MEDS ORDERED: HUMALOG SQ SCH (10:30)
[2021-08-21 10:44] LABS: ANION GAP 12.4 MEQ/L (5-15); BLOOD UREA NITROGEN 22 mg/dL (9-20); CHLORIDE 108 mmol/L (98-107); Calcium 8.2 mg/dL (8.4-10.2); Carbon Dioxide 19 mmol/L (22-30); Creatinine 1 0.77 mg/dL (0.66-1.25); EST GLOMERULAR FILTRATION RATE > 60.0 ML/MIN; Glucose 229 mg/dL (74-106); Potassium 4.3 mmol/L (3.5-5.1); SODIUM 135 mmol/L (137-145)
[2021-08-21 14:27] LABS: ANION GAP 10.7 MEQ/L (5-15); BLOOD UREA NITROGEN 20 mg/dL (9-20); CHLORIDE 108 mmol/L (98-107); Calcium 8.3 mg/dL (8.4-10.2); Carbon Dioxide 21 mmol/L (22-30); Creatinine 1 0.75 mg/dL (0.66-1.25); EST GLOMERULAR FILTRATION RATE > 60.0 ML/MIN; Glucose 236 mg/dL (74-106); Potassium 4.1 mmol/L (3.5-5.1); SODIUM 135 mmol/L (137-145)
[2021-08-21] MEDS ORDERED: HUMALOG SQ ONE (15:00)
[2021-08-21 18:33] LABS: ANION GAP 11.1 MEQ/L (5-15); BLOOD UREA NITROGEN 17 mg/dL (9-20); CHLORIDE 106 mmol/L (98-107); Calcium 8.3 mg/dL (8.4-10.2); Carbon Dioxide 23 mmol/L (22-30); Creatinine 1 0.68 mg/dL (0.66-1.25); EST GLOMERULAR FILTRATION RATE > 60.0 ML/MIN; Glucose 200 mg/dL (74-106); Potassium 3.9 mmol/L (3.5-5.1); SODIUM 136 mmol/L (137-145)
[2021-08-21] MEDS: HUMALOG SQ PRN ×2 (20:36→22:19)
[2021-08-22] MEDS: Dextrose 5%-NS IV Solution 1000 ML 1,000 ML IV SCH (00:38)
[2021-08-22] MEDS: HUMALOG SQ PRN ×4 (02:13→05:58)
[2021-08-22 05:27] LABS: Absolute Neutrophil Ct (ANC) 9.62 (1.4-6.9); Basophil (Absolute #) 0.04 (0-0.4); Eosinophil % 1.2 % (0.00-5.0); Eosinophil (Absolute #) 0.17 (0-0.5); Hematocrit 40.4 % (42-50); Hemoglobin 13.4 gm/dl (12.5-18.0); Lymphocyte (Absolute #) 3.51 (1.0-4.6); Mean Cell Volume 94.4 fl (78-100); Mean Corpuscular Hemoglobin 31.3 pg (26-32); Mean Corpuscular Hgb Concent. 33.2 g/dl (32-36); Mean Platelet Volume 11.8 fl (7.5-11.0); Monocyte (Absolute #) 0.68 (0.0-1.3); Monocytes % 4.9 % (0.0-12.0); Neutrophil % 68.6 % (36.0-66.0); Platelet Count 241 K/mm3 (150-450); Red Blood Count 4.28 M/mm3 (4.1-5.6); Red Cell Distribution Width 12.1 % (11.5-14.0)
[2021-08-22 05:49] LABS: ANION GAP 12.2 MEQ/L (5-15); BLOOD UREA NITROGEN 11 mg/dL (9-20); CHLORIDE 105 mmol/L (98-107); Calcium 8.9 mg/dL (8.4-10.2); Carbon Dioxide 24 mmol/L (22-30); EST GLOMERULAR FILTRATION RATE > 60.0 ML/MIN; Glucose 186 mg/dL (74-106); Potassium 4.1 mmol/L (3.5-5.1); SODIUM 137 mmol/L (137-145)
[2021-08-22 08:35] VITALS: BP 123/59; PULSE 73; O2SAT 93
[2021-08-22] MEDS ORDERED: ROCEPHIN 1 Gm-D5w 50 ml Bag** 1 G/50 ML IVPB IV SCH (10:00)
[2021-08-22] MEDS ORDERED: NON-FORMULARY ITEM (Insulin Lispro 100 UNIT/ML Ml) SQ SCH (10:00)
== END 2021-08-22 10:30 | disposition home or self-care (01) | DRG 639 ==
LOC: ED 20:55 → MED SURG 08-21 02:39 → OBSVTOIN 08-21 02:39
PROVIDERS: ADMIT Family Medicine; ATTEND Family Medicine
DX: E10.10 Type 1 diabetes mellitus with ketoacidosis without coma (principal); D72.829 Elevated white blood cell count, unspecified; R10.9 Unspecified abdominal pain; R11.2 Nausea with vomiting, unspecified; F17.200 Nicotine dependence, unspecified, uncomplicated; Z20.828 Contact with and (suspected) exposure to other viral communicable diseases; Z79.899 Other long term (current) drug therapy; Z91.14 Patient's other noncompliance with medication regimen
CPT/HCPCS: 0241U; 36000; 36415; 71045; 74177; 80048; 80076; 81001; 82150; 82805; 82947; 83036; 83690; 83735; 84100; 84145; 85025; 85027; 93005; 93041; 96360; 96365; 96366; 96374; 99284; 99291; J0456; J0696; J1815; J1817; J2405; J7609; A9270-GY

== ENCOUNTER 2022-01-05 15:09 | Observation (INO) | payer OTHER ==
[2022-01-05] MEDS ORDERED: HUMULIN R IV ONE (15:34)
[2022-01-05] MEDS ORDERED: Sodium Chloride 0.9% 1000 ML 1,000 ML IV STA ×2 (15:34→16:54)
--- NOTE | 2022-01-05 15:34 | ERPHSYRPT ---
- History of Present Illness Time Seen by Provider: 01/05/22 15:34 Source: patient Patient Subjective Stated Complaint: PT states "MY pump stopped working yesterday and I put a new one on today and was feeling better then my sugar spiked and it was higher than my pump could read." Triage Nursing Assessment: Pt presented alert and oriented X 3, skin wpd Pt ambulates with an upright steady gait, able to speak in clear full sentenecs. Pt slightly lethargic. Physician History: This is a 21-year-old insulin-dependent diabetic whose insulin pump has not been working for the last few days and he finally got a new insulin pump started yesterday. However, yesterday he was at his mother's home and he had several sodas and coffee with sugar in it and began not feeling well. He thought the new pump was working. He did some adjustments and it is not working. However today, he has had several episodes of vomiting earlier in the morning. He feels very dehydrated at this point. He has recently held down a sugary slushy drink. He has no headache. He had no chest pain. He has no shortness of breath. He has no abdominal pain he presents with a very high blood glucose level based on Accu-Chek. Based on VBG, his blood sugar is greater than 685. Severity: moderate Associated Symptoms: nausea, vomiting, weakness, No abdominal pain, No shortness of breath, No diaphoresis, No chest pain, No headaches Allergies/Adverse Reactions: No Known Drug Allergies Allergy (Verified 08/20/21 21:05) Home Medications: Insulin Lispro [Humalog] 0 unit SQ DAILY 03/21/14 [History] Hx Tetanus, Diphtheria Vaccination/Date Given: Yes Hx Influenza Vaccination/Date Given: No Hx Pneumococcal Vaccination/Date Given: No Immunizations Up to Date: Yes Travel Risk - International Travel Have you traveled outside of the country in past 3 weeks: No - Coronavirus Screening Are you exhibiting any of the following symptoms?: No Close contact with a COVID-19 positive Pt in past 14-21 Days: No - Vaccine Status Have you recieved a Covid-19 vaccination: No - Review of Systems Constitutional: Weakness Eyes: No Symptoms Ears, Nose, & Throat: No Symptoms Respiratory: No Symptoms Cardiac: No Symptoms Abdominal/Gastrointestinal: Nausea, Vomiting, No Abdominal Pain, No Diarrhea, No Constipation Genitourinary Symptoms: No Symptoms Musculoskeletal: No Symptoms Skin: No Symptoms Neurological: No Symptoms Psychological: No Symptoms Endocrine: No Symptoms Hematologic/Lymphatic: No Symptoms Immunological/Allergic: No Symptoms All Other Systems: Reviewed and Negative - Past Medical History Pertinent Past Medical History: Yes Neurological History: Seizures ENT History: No Pertinent History Cardiac History: No Pertinent History Respiratory History: No Pertinent History Endocrine Medical History: Diabetes Type I, Hypoglycemia Musculoskeletal History: No Pertinent History GI Medical History: No Pertinent History History: No Pertinent History Psycho-Social History: Attention Deficit Disorder, Depression Male Reproductive Disorders: No Pertinent History Other Medical History: 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 NO LONGER TAKES MEDS FOR ADHD. - Past Surgical History Past Surgical History: No Neuro Surgical History: No Pertinent History Cardiac: No Pertinent History Respiratory: No Pertinent History Gastrointestinal: No Pertinent History Genitourinary: No Pertinent History Musculoskeletal: No Pertinent History Male Surgical History: No Pertinent History - Social History Smoking Status: Current every day smoker How long have you smoked: 7 yrs Exposure to second hand smoke: Yes Drug Use: none Patient Lives Alone: No Significant Family History: no pertinent family hx - Nursing Vital Signs Nursing Vital Signs: Initial Vital Signs Temperature 97.3 F 01/05/22 15:17 Pulse Rate 94 H 01/05/22 15:17 Respiratory Rate 28 H 01/05/22 15:17 Blood Pressure 127/83 01/05/22 15:17 O2 Sat by Pulse Oximetry 100 01/05/22 15:17 Pain Scale Pain Intensity 4 - Physical Exam General Appearance: no apparent distress, alert, anxiety, thin Eye Exam: PERRL/EOMI, eyes nml inspection Ears, Nose, Throat Exam: dry mucous membranes Neck Exam: normal inspection, non-tender, supple, full range of motion Respiratory Exam: normal breath sounds, lungs clear, airway intact, No chest tenderness, No respiratory distress Cardiovascular Exam: regular rate/rhythm, normal heart sounds, normal peripheral pulses Gastrointestinal/Abdomen Exam: soft, normal bowel sounds, No tenderness Rectal Exam: not done Back Exam: normal inspection, normal range of motion, No CVA tenderness, No vertebral tenderness Extremity Exam: normal inspection, normal range of motion, pelvis stable Neurologic Exam: alert, oriented x 3, cooperative, shop clerk II-XII nml as tested, normal mood/affect, nml cerebellar function, nml station & gait, sensation nml Skin Exam: normal color, warm, dry Lymphatic Exam: No adenopathy SpO2 Interpretation: normal SpO2: 100 O2 Delivery: Room Air - Course Nursing assessment & vital signs reviewed: Yes Ordered Tests: Active Orders 24 hr Category Date Time Status IV Insertion STAT Care 01/05/22 15:34 Active CBC W DIFF Stat Lab 01/05/22 15:30 Completed CMP Stat Lab 01/05/22 15:30 Completed Lactic Acid Urgent Lab 01/05/22 15:45 Completed POCT GLUCOSE Stat Lab 01/05/22 15:22 Received UA W/RFX CULTURE Stat Lab 01/05/22 15:30 Completed VBG [VENOUS BLOOD GAS] Stat Lab 01/05/22 15:55 Completed Medication Summary Generic Name Dose Route Start Last Admin Trade Name Freq PRN Reason Stop Dose Admin Sodium Chloride 1,000 mls @ 999 mls/hr 01/05/22 16:54 Sodium Chloride 0.9% 1000 Ml IV 01/05/22 17:54 .Q1H1M STA Discontinued Medications Generic Name Dose Route Start Last Admin Trade Name Freq PRN Reason Stop Dose Admin Sodium Chloride 1,000 mls @ 999 mls/hr 01/05/22 15:34 01/05/22 16:58 Sodium Chloride 0.9% 1000 Ml IV 01/05/22 16:34 Infused .Q1H1M STA Infusion Sodium Chloride Confirm 01/05/22 15:50 Sodium Chloride 0.9% 1000 Ml Administered 01/05/22 15:51 Dose 1,000 mls @ ud .ROUTE .STK-MED ONE Insulin Human Regular 15 unit 01/05/22 15:34 01/05/22 15:52 Insulin Regular, Human 1 Unit IV 01/05/22 15:35 15 unit STAT ONE Administration Insulin Human Regular Confirm 01/05/22 15:50 Insulin Regular, Human 1 Unit Administered 01/05/22 15:51 Dose 15 unit .ROUTE .STK-MED ONE Ondansetron HCl 4 mg 01/05/22 15:53 01/05/22 15:55 Ondansetron Hcl 4 Mg/2 Ml Vial IV 01/05/22 15:54 4 mg STAT ONE Administration Ondansetron HCl Confirm 01/05/22 15:54 Ondansetron Hcl 4 Mg/2 Ml Vial Administered 01/05/22 15:55 Dose 4 mg .ROUTE .STK-MED ONE Lab/Rad Data: Laboratory Result Diagrams 01/05/22 15:30 01/05/22 15:30 Laboratory Results 01/05/22 01/05/22 01/05/22 Range/Units 16:10 15:55 15:45 WBC (4.0-10.5) K/mm3 RBC (4.1-5.6) M/mm3 Hgb (12.5-18.0) gm/dl Hct (42-50) % MCV (78-100) fl MCH (26-32) pg MCHC (32-36) g/dl RDW (11.5-14.0) % Plt Count (150-450) K/mm3 MPV (7.5-11.0) fl Gran % (36.0-66.0) % Eos # (Auto) (0-0.5) Absolute Lymphs (auto) (1.0-4.6) Absolute Monos (auto) (0.0-1.3) Lymphocytes % (24.0-44.0) % Monocytes % (0.0-12.0) % Eosinophils % (0.00-5.0) % Basophils % (0.0-0.4) % Absolute Granulocytes (1.4-6.9) Basophils # (0-0.4) pO2/FiO2 Ratio 21.0 % VBG pH 7.20 L* (7.32-7.42) VBG pCO2 at Pat Temp 50 (42-55) mm/Hg VBG pO2 at Pat Temp 39 (25-40) mm/Hg VBG HCO3 19.5 L (22-28) meq/L VBG O2 Sat (Evelyn) 67.9 L (95-100) VBG Base Excess -8.7 L (-2.0-2.0) VBG Hemoglobin 17.2 VBG Carboxyhemoglobin 3.0 (0.0-6.9) % T HGB POC Potassium 4.9 (3.5-5.1) Sodium (137-145) mmol/L Potassium (3.5-5.1) mmol/L Chloride (98-107) mmol/L Carbon Dioxide (22-30) mmol/L Anion Gap (5-15) MEQ/L BUN (9-20) mg/dL Creatinine (0.66-1.25) mg/dL Estimated GFR ML/MIN Glucose (74-106) mg/dL Lactic Acid 3.5 H (0.4-2.0) Calcium (8.4-10.2) mg/dL Total Bilirubin (0.2-1.3) mg/dL AST (17-59) U/L ALT (0-50) U/L Alkaline Phosphatase (38-126) U/L Serum Total Protein (6.3-8.2) g/dL Albumin (3.5-5.0) g/dL Urinalys Dipstick Clnc Urine Color (YELLOW) Urine Appearance (CLEAR) Urine pH (5-6) Ur Specific [place] (1.005-1.025) POC Urine Protein Conf (Negative) Urine Ketones (NEGATIVE) Urine Nitrite (NEGATIVE) Urine Bilirubin (NEGATIVE) Urine Urobilinogen (0-1) mg/dL Urine Leukocytes (NEGATIVE) Urine WBC (Auto) (0-5) /HPF Urine RBC (Auto) (0-2) /HPF U Epithel Cells (Auto) (FEW) /HPF Urine Bacteria (Auto) (NEGATIVE) /HPF Urine RBC (0-5) Konrad/ul Ur Culture Indicated? Urine Glucose (NEGATIVE) mg/dL Influenza Type A Ag NEGATIVE (NEGATIVE) Influenza Type B Ag NEGATIVE (NEGATIVE) RSV (PCR) NEGATIVE (Negative) SARS-CoV-2 (PCR) NEGATIVE (NEGATIVE) 01/05/22 01/05/22 01/05/22 Range/Units 15:30 15:30 15:30 WBC 9.8 (4.0-10.5) K/mm3 RBC 5.30 (4.1-5.6) M/mm3 Hgb 16.8 (12.5-18.0) gm/dl Hct 51.4 H (42-50) % MCV 97.0 (78-100) fl MCH 31.7 (26-32) pg MCHC 32.7 (32-36) g/dl RDW 11.9 (11.5-14.0) % Plt Count 285 (150-450) K/mm3 MPV 13.2 H (7.5-11.0) fl Gran % 84.9 H (36.0-66.0) % Eos # (Auto) 0.04 (0-0.5) Absolute Lymphs (auto) 1.07 (1.0-4.6) Absolute Monos (auto) 0.32 (0.0-1.3) Lymphocytes % 11.0 L (24.0-44.0) % Monocytes % 3.3 (0.0-12.0) % Eosinophils % 0.4 (0.00-5.0) % Basophils % 0.4 (0.0-0.4) % Absolute Granulocytes 8.28 H (1.4-6.9) Basophils # 0.04 (0-0.4) pO2/FiO2 Ratio % VBG pH (7.32-7.42) VBG pCO2 at Pat Temp (42-55) mm/Hg VBG pO2 at Pat Temp (25-40) mm/Hg VBG HCO3 (22-28) meq/L VBG O2 Sat (Evelyn) (95-100) VBG Base Excess (-2.0-2.0) VBG Hemoglobin VBG Carboxyhemoglobin (0.0-6.9) % T HGB POC Potassium (3.5-5.1) Sodium 130 L (137-145) mmol/L Potassium 4.9 (3.5-5.1) mmol/L Chloride 87 L (98-107) mmol/L Carbon Dioxide 17 L (22-30) mmol/L Anion Gap 30.9 H (5-15) MEQ/L BUN 20 (9-20) mg/dL Creatinine 0.88 (0.66-1.25) mg/dL Estimated GFR > 60.0 ML/MIN Glucose 1155 H* (74-106) mg/dL Lactic Acid (0.4-2.0) Calcium 10.2 (8.4-10.2) mg/dL Total Bilirubin 1.20 (0.2-1.3) mg/dL AST 37 (17-59) U/L ALT 36 (0-50) U/L Alkaline Phosphatase 195 H (38-126) U/L Serum Total Protein 7.7 (6.3-8.2) g/dL Albumin 4.9 (3.5-5.0) g/dL Urinalys Dipstick Clnc MAIN LAB Urine Color YELLOW (YELLOW) Urine Appearance CLEAR (CLEAR) Urine pH 5.5 (5-6) Ur Specific [place] <=1.005 (1.005-1.025) POC Urine Protein Conf NEGATIVE (Negative) Urine Ketones LARGE-80 (NEGATIVE) Urine Nitrite NEGATIVE (NEGATIVE) Urine Bilirubin NEGATIVE (NEGATIVE) Urine Urobilinogen 0.2 (0-1) mg/dL Urine Leukocytes NEGATIVE (NEGATIVE) Urine WBC (Auto) NONE SEEN (0-5) /HPF Urine RBC (Auto) NONE SEEN (0-2) /HPF U Epithel Cells (Auto) NONE (FEW) /HPF Urine Bacteria (Auto) RARE (NEGATIVE) /HPF Urine RBC NEGATIVE (0-5) Konrad/ul Ur Culture Indicated? NO Urine Glucose >=1000 (NEGATIVE) mg/dL Influenza Type A Ag (NEGATIVE) Influenza Type B Ag (NEGATIVE) RSV (PCR) (Negative) SARS-CoV-2 (PCR) (NEGATIVE) - Progress Progress: improved Progress Note: 01/05/22 17:09 Medical decision making: This patient has DKA. He needs admission, intravenous fluid infusion, intravenous insulin drip and rechecking of electrolytes. I spoke with Dr. Kal Santizo and she agrees. We will put him in the unit and start him on the insulin drip. We will repeat his labs in approximately 2 hours. We will also repeat labs in the morning of 01/06/2022. Discussed with : Elfego Counseled pt/family regarding: lab results, diagnosis - Departure Departure Disposition: In-patient Admission Clinical Impression: DKA (diabetic ketoacidosis) Condition: Fair Critical Care Time: Yes Critical Care Time(excluding separately billable procedures): Critical 30-74 mins (40 minutes) Referrals: KARUNA ADAMS [Primary Care Provider] - Follow up/PCP as directed
[2022-01-05] MEDS ORDERED: HUMULIN R ONE ×3 (15:50→17:28)
[2022-01-05] MEDS ORDERED: Sodium Chloride 0.9% 1000 ML 1,000 ML ONE ×2 (15:50→17:25)
[2022-01-05 15:52] LABS: Absolute Neutrophil Ct (ANC) 8.28 (1.4-6.9); Basophil (Absolute #) 0.04 (0-0.4); Eosinophil % 0.4 % (0.00-5.0); Eosinophil (Absolute #) 0.04 (0-0.5); Hematocrit 51.4 % (42-50); Hemoglobin 16.8 gm/dl (12.5-18.0); Lymphocyte (Absolute #) 1.07 (1.0-4.6); Mean Corpuscular Hemoglobin 31.7 pg (26-32); Mean Corpuscular Hgb Concent. 32.7 g/dl (32-36); Mean Platelet Volume 13.2 fl (7.5-11.0); Monocyte (Absolute #) 0.32 (0.0-1.3); Monocytes % 3.3 % (0.0-12.0); Neutrophil % 84.9 % (36.0-66.0); Platelet Count 285 K/mm3 (150-450); Red Cell Distribution Width 11.9 % (11.5-14.0); White Blood Count 9.8 K/mm3 (4.0-10.5)
[2022-01-05] MEDS ORDERED: Zofran 4 MG/2 ML VIAL IV ONE (15:53)
[2022-01-05] MEDS ORDERED: Zofran 4 MG/2 ML VIAL ONE (15:54)
[2022-01-05 15:56] LABS: ALBUMIN 4.9 g/dL (3.5-5.0); ALKALINE PHOSPHATASE 195 U/L (38-126); ANION GAP 30.9 MEQ/L (5-15); BLOOD UREA NITROGEN 20 mg/dL (9-20); CHLORIDE 87 mmol/L (98-107); Calcium 10.2 mg/dL (8.4-10.2); Carbon Dioxide 17 mmol/L (22-30); Creatinine 1 0.88 mg/dL (0.66-1.25); EST GLOMERULAR FILTRATION RATE > 60.0 ML/MIN; Potassium 4.9 mmol/L (3.5-5.1); SGOT/AST 37 U/L (17-59); SGPT/ALT 36 U/L (0-50); SODIUM 130 mmol/L (137-145); Total Protein 7.7 g/dL (6.3-8.2)
[2022-01-05 15:56] LABS: VBG BASE EXCESS -8.7 (-2.0-2.0); VBG HCO3- 19.5 meq/L (22-28); VBG HEMOGLOBIN 17.2; VBG O2 SATURATION 67.9 (95-100); VBG POTASSIUM 4.9 (3.5-5.1)
[2022-01-05 15:57] LABS: VBG pH 7.2 (7.32-7.42)
[2022-01-05 16:17] LABS: Glucose 1155 mg/dL (74-106)
[2022-01-05 16:42] LABS: Bacteria RARE /HPF (NEGATIVE)
[2022-01-05 16:44] LABS: Appearance CLEAR (CLEAR); Bilirubin NEGATIVE (NEGATIVE); Dipstick done @ ? MAIN LAB; Glucose >=1000 mg/dL (NEGATIVE); Ketones LARGE-80 (NEGATIVE); Nitrite NEGATIVE (NEGATIVE); Ph 5.5 (5-6); Protein,Urine Dip NEGATIVE (Negative); RBC NEGATIVE Ery/ul (0-5); Specific Gravity <=1.005 (1.005-1.025); Urobilinogen 0.2 mg/dL (0-1)
[2022-01-05 16:45] LABS: RBC NONE SEEN /HPF (0-2); Urine Cultured Indicated? NO; WBC NONE SEEN /HPF (0-5)
[2022-01-05 16:56] LABS: INFLUENZA A NEGATIVE (NEGATIVE); INFLUENZA B NEGATIVE (NEGATIVE); RESPIRATORY SYNCTIAL VIRUS NEGATIVE (Negative); SARS-CoV-2 Xpert Express NEGATIVE (NEGATIVE)
[2022-01-05] MEDS ORDERED: Sodium Chloride 0.9% 100 ML ONE (17:28)
[2022-01-05] MEDS ORDERED: Sodium Chloride 0.9% 1000 ML 1,000 ML IV SCH ×2 (17:34→20:45)
[2022-01-05] MEDS ORDERED: Zofran 4 MG/2 ML VIAL IV PRN (17:34)
[2022-01-05] MEDS ORDERED: TYLENOL 325 MG PO PRN (17:34)
[2022-01-05] MEDS ORDERED: HUMULIN R 100 UNIT in Sodium Chloride 0.9% 100 ML IV PRN (17:52)
[2022-01-05 19:29] LABS: ANION GAP 19.3 MEQ/L (5-15); BLOOD UREA NITROGEN 17 mg/dL (9-20); CHLORIDE 96 mmol/L (98-107); Calcium 9.3 mg/dL (8.4-10.2); Carbon Dioxide 21 mmol/L (22-30); EST GLOMERULAR FILTRATION RATE > 60.0 ML/MIN; SODIUM 132 mmol/L (137-145)
[2022-01-05 19:45] LABS: Glucose 552 mg/dL (74-106)
[2022-01-05 23:24] LABS: ANION GAP 12.6 MEQ/L (5-15); BLOOD UREA NITROGEN 17 mg/dL (9-20); CHLORIDE 101 mmol/L (98-107); Calcium 9.3 mg/dL (8.4-10.2); Carbon Dioxide 27 mmol/L (22-30); Creatinine 1 0.66 mg/dL (0.66-1.25); EST GLOMERULAR FILTRATION RATE > 60.0 ML/MIN; Glucose 412 mg/dL (74-106); Potassium 4.3 mmol/L (3.5-5.1); SODIUM 136 mmol/L (137-145)
[2022-01-06] MEDS ORDERED: D5W/0.45NS W/ 20mEq KCl 1000 ML 1,000 ML IV SCH (00:30)
[2022-01-06] MEDS ORDERED: Dextrose 5% -0.45 NaCl 1000 ML 1,000 ML IV SCH (03:00)
[2022-01-06 03:23] LABS: Basophil (Absolute #) 0.07 (0-0.4); Eosinophil % 2.6 % (0.00-5.0); Eosinophil (Absolute #) 0.28 (0-0.5); Hematocrit 42.4 % (42-50); Lymphocyte (Absolute #) 3.86 (1.0-4.6); Lymphocytes % 35.3 % (24.0-44.0); Mean Cell Volume 90.6 fl (78-100); Mean Corpuscular Hemoglobin 32.1 pg (26-32); Mean Corpuscular Hgb Concent. 35.4 g/dl (32-36); Mean Platelet Volume 12.2 fl (7.5-11.0); Monocyte (Absolute #) 0.71 (0.0-1.3); Monocytes % 6.5 % (0.0-12.0); Platelet Count 273 K/mm3 (150-450); Red Blood Count 4.68 M/mm3 (4.1-5.6); Red Cell Distribution Width 11.5 % (11.5-14.0); White Blood Count 10.9 K/mm3 (4.0-10.5)
[2022-01-06 03:33] LABS: ALBUMIN 3.8 g/dL (3.5-5.0); ALKALINE PHOSPHATASE 121 U/L (38-126); ANION GAP 13.1 MEQ/L (5-15); BLOOD UREA NITROGEN 18 mg/dL (9-20); CHLORIDE 103 mmol/L (98-107); Calcium 8.9 mg/dL (8.4-10.2); Carbon Dioxide 23 mmol/L (22-30); Creatinine 1 0.55 mg/dL (0.66-1.25); EST GLOMERULAR FILTRATION RATE > 60.0 ML/MIN; Glucose 264 mg/dL (74-106); SGOT/AST 16 U/L (17-59); SGPT/ALT 28 U/L (0-50); SODIUM 136 mmol/L (137-145); Total Protein 6.5 g/dL (6.3-8.2)
[2022-01-06] MEDS ORDERED: HUMALOG SQ ONE (06:06)
[2022-01-06] MEDS ORDERED: HUMALOG ONE (07:01)
--- NOTE | 2022-01-06 08:36 | PCM.SSS ---
History of Present Illness - Chief Complaint Chief Complaint: Hyperglycemia History of Present Illness: is a 21 year old male pt of Dr. Steel's with Type I DM, noncompliant, who was admitted through ER with DKA. He had been feeling badly for 1.5 h prior to admission, "I didn't want to move" with some vomiting. He wasn't feeling well so he drank a Pepsi, which tasted like bleach. After that he drank 2 frappacinos, 3 gatorades, and was on his second slushy when he came to the ER. His meter read "HI" but per lab his BS was 1155. His insulin pump came off 2d ago and he needed a new karuk piece; his mom brought him one in about 15 min so he says otherwise the pump was working. He got the pump from Dr. Graham, who he hasn't seen in about a year. He apparently does see Dr. Lisa vieira. His A1c was >14. Overnight, his CO2 improved from 17 to 23. He is feeling hungry; in fact, he ate pizza and chicken nuggets overnight. He was on the insulin drip until this morning. He had 2L of fluid in the ER. His BS improved rapidly. He remembers all the events of yesterday. He will be restarted on his insulin pump and fed consistent carb diet, for our part (of course, pt may decide to eat food brought in from outside). I have discussed that he must start controlling his sugar lest he feel the deleterious effects of diabetes. Discussed options for endocrinologists, but my recommendation would be that he return to Dr. Graham (we discussed this). If his pump is working and BS are between 100-400, he will be discharged to home this afternoon. F/u with Dr. Steel on Thursday. - Review of Systems Abdominal/Gastrointestinal: Abdominal Pain, Vomiting All Other Systems: Reviewed and Negative Medications & Allergies Home Medications: Home Medication List Insulin Lispro [Humalog] 0 unit SQ DAILY 03/21/14 [History Confirmed 01/05/22] Allergies/Adverse Reactions: Allergies Allergy/AdvReac Type Severity Reaction Status Date / Time No Known Drug Allergies Allergy Verified 01/05/22 18:28 - Past Medical History Past Medical History: Yes Neurological History: Seizures ENT History: No Pertinent History Cardiac History: No Pertinent History Respiratory History: No Pertinent History Endocrine Medical History: Diabetes Type I, Hypoglycemia Musculoskelatal History: No Pertinent History GI Medical History: No Pertinent History History: No Pertinent History Pyscho-Social History: Attention Deficit Disorder, Depression Male Reproductive Disorders: No Pertinent History Comment: 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 - Past Surgical History Past Surgical History: No Neuro Surgical History: No Pertinent History Cardiac History: No Pertinent History Respiratory Surgery: No Pertinent History GI Surgical History: No Pertinent History Genitourinary Surgical Hx: No Pertinent History Musculskeletal Surgical Hx: No Pertinent History Male Surgical History: No Pertinent History - Social History Smoking Status: Current every day smoker How long have you smoked: 1ppd Exposure to second hand smoke: Yes Alcohol: Occasionally Drug Use: other Significant Family History: no pertinent family hx - Physical Exam Vital Signs: Vital Signs - 24 hr Temp Pulse Resp BP Pulse Ox 01/06/22 08:00 64 01/06/22 07:46 97.9 F 69 19 103/64 97 01/06/22 04:00 69 14 01/06/22 03:20 98.6 F 80 17 119/59 98 01/06/22 00:13 98.2 F 83 14 114/60 97 01/06/22 00:01 81 01/06/22 00:00 14 01/05/22 20:00 106 H 18 01/05/22 19:49 98.4 F 95 H 18 116/69 97 01/05/22 17:48 97.7 F 90 14 121/75 95 01/05/22 17:47 97.7 F 90 14 121/75 95 01/05/22 17:15 97.9 F 91 H 20 124/72 98 01/05/22 17:10 100 01/05/22 16:48 97.9 F 95 H 22 129/71 98 01/05/22 15:17 97.3 F 94 H 28 H 127/83 100 General Appearance: no apparent distress, alert Neurologic Exam: oriented x 3, cooperative Eye Exam: eyes nml inspection Ears, Nose, Throat Exam: moist mucous membranes Neck Exam: normal inspection, non-tender, supple, No lymphadenopathy, No thyromegaly Respiratory Exam: normal breath sounds, lungs clear, No crackles/rales, No rhonchi, No wheezing Cardiovascular Exam: regular rate/rhythm, normal heart sounds, No murmur Gastrointestinal/Abdomen Exam: soft, normal bowel sounds, No tenderness, No distention, No mass, No guarding, No rebound Back Exam: normal inspection, No rash Extremity Exam: normal inspection, No pedal edema, No swelling Skin Exam: normal color, warm, dry, No rash Results - Labs Lab/Micro Results: Lab Results-Last 24 Hours 01/05/22 01/05/22 01/05/22 Range/Units 15:30 15:30 15:30 WBC 9.8 (4.0-10.5) K/mm3 RBC 5.30 (4.1-5.6) M/mm3 Hgb 16.8 (12.5-18.0) gm/dl Hct 51.4 H (42-50) % MCV 97.0 (78-100) fl MCH 31.7 (26-32) pg MCHC 32.7 (32-36) g/dl RDW 11.9 (11.5-14.0) % Plt Count 285 (150-450) K/mm3 MPV 13.2 H (7.5-11.0) fl Gran % 84.9 H (36.0-66.0) % Eos # (Auto) 0.04 (0-0.5) Absolute Lymphs (auto) 1.07 (1.0-4.6) Absolute Monos (auto) 0.32 (0.0-1.3) Lymphocytes % 11.0 L (24.0-44.0) % Monocytes % 3.3 (0.0-12.0) % Eosinophils % 0.4 (0.00-5.0) % Basophils % 0.4 (0.0-0.4) % Absolute Granulocytes 8.28 H (1.4-6.9) Basophils # 0.04 (0-0.4) pO2/FiO2 Ratio % VBG pH (7.32-7.42) VBG pCO2 at Pat Temp (42-55) mm/Hg VBG pO2 at Pat Temp (25-40) mm/Hg VBG HCO3 (22-28) meq/L VBG O2 Sat (Evelyn) (95-100) VBG Base Excess (-2.0-2.0) VBG Hemoglobin VBG Carboxyhemoglobin (0.0-6.9) % T HGB POC Potassium (3.5-5.1) Sodium 130 L (137-145) mmol/L Potassium 4.9 (3.5-5.1) mmol/L Chloride 87 L (98-107) mmol/L Carbon Dioxide 17 L (22-30) mmol/L Anion Gap 30.9 H (5-15) MEQ/L BUN 20 (9-20) mg/dL Creatinine 0.88 (0.66-1.25) mg/dL Estimated GFR > 60.0 ML/MIN Glucose 1155 H* (74-106) mg/dL POC Glucometer (74 to 106) mg/dL Hemoglobin A1c (4.5-6.0) % Lactic Acid (0.4-2.0) Calcium 10.2 (8.4-10.2) mg/dL Magnesium (1.6-2.3) mg/dL Total Bilirubin 1.20 (0.2-1.3) mg/dL AST 37 (17-59) U/L ALT 36 (0-50) U/L Alkaline Phosphatase 195 H (38-126) U/L Serum Total Protein 7.7 (6.3-8.2) g/dL Albumin 4.9 (3.5-5.0) g/dL Urinalys Dipstick Clnc MAIN LAB Urine Color YELLOW (YELLOW) Urine Appearance CLEAR (CLEAR) Urine pH 5.5 (5-6) Ur Specific [place] <=1.005 (1.005-1.025) POC Urine Protein Conf NEGATIVE (Negative) Urine Ketones LARGE-80 (NEGATIVE) Urine Nitrite NEGATIVE (NEGATIVE) Urine Bilirubin NEGATIVE (NEGATIVE) Urine Urobilinogen 0.2 (0-1) mg/dL Urine Leukocytes NEGATIVE (NEGATIVE) Urine WBC (Auto) NONE SEEN (0-5) /HPF Urine RBC (Auto) NONE SEEN (0-2) /HPF U Epithel Cells (Auto) NONE (FEW) /HPF Urine Bacteria (Auto) RARE (NEGATIVE) /HPF Urine RBC NEGATIVE (0-5) Konrad/ul Ur Culture Indicated? NO Urine Glucose >=1000 (NEGATIVE) mg/dL Influenza Type A Ag (NEGATIVE) Influenza Type B Ag (NEGATIVE) RSV (PCR) (Negative) SARS-CoV-2 (PCR) (NEGATIVE) 01/05/22 01/05/22 01/05/22 Range/Units 15:30 15:45 15:55 WBC (4.0-10.5) K/mm3 RBC (4.1-5.6) M/mm3 Hgb (12.5-18.0) gm/dl Hct (42-50) % MCV (78-100) fl MCH (26-32) pg MCHC (32-36) g/dl RDW (11.5-14.0) % Plt Count (150-450) K/mm3 MPV (7.5-11.0) fl Gran % (36.0-66.0) % Eos # (Auto) (0-0.5) Absolute Lymphs (auto) (1.0-4.6) Absolute Monos (auto) (0.0-1.3) Lymphocytes % (24.0-44.0) % Monocytes % (0.0-12.0) % Eosinophils % (0.00-5.0) % Basophils % (0.0-0.4) % Absolute Granulocytes (1.4-6.9) Basophils # (0-0.4) pO2/FiO2 Ratio 21.0 % VBG pH 7.20 L* (7.32-7.42) VBG pCO2 at Pat Temp 50 (42-55) mm/Hg VBG pO2 at Pat Temp 39 (25-40) mm/Hg VBG HCO3 19.5 L (22-28) meq/L VBG O2 Sat (Evelyn) 67.9 L (95-100) VBG Base Excess -8.7 L (-2.0-2.0) VBG Hemoglobin 17.2 VBG Carboxyhemoglobin 3.0 (0.0-6.9) % T HGB POC Potassium 4.9 (3.5-5.1) Sodium (137-145) mmol/L Potassium (3.5-5.1) mmol/L Chloride (98-107) mmol/L Carbon Dioxide (22-30) mmol/L Anion Gap (5-15) MEQ/L BUN (9-20) mg/dL Creatinine (0.66-1.25) mg/dL Estimated GFR ML/MIN Glucose (74-106) mg/dL POC Glucometer (74 to 106) mg/dL Hemoglobin A1c > 14.00 H (4.5-6.0) % Lactic Acid 3.5 H (0.4-2.0) Calcium (8.4-10.2) mg/dL Magnesium (1.6-2.3) mg/dL Total Bilirubin (0.2-1.3) mg/dL AST (17-59) U/L ALT (0-50) U/L Alkaline Phosphatase (38-126) U/L Serum Total Protein (6.3-8.2) g/dL Albumin (3.5-5.0) g/dL Urinalys Dipstick Clnc Urine Color (YELLOW) Urine Appearance (CLEAR) Urine pH (5-6) Ur Specific [place] (1.005-1.025) POC Urine Protein Conf (Negative) Urine Ketones (NEGATIVE) Urine Nitrite (NEGATIVE) Urine Bilirubin (NEGATIVE) Urine Urobilinogen (0-1) mg/dL Urine Leukocytes (NEGATIVE) Urine WBC (Auto) (0-5) /HPF Urine RBC (Auto) (0-2) /HPF U Epithel Cells (Auto) (FEW) /HPF Urine Bacteria (Auto) (NEGATIVE) /HPF Urine RBC (0-5) Konrad/ul Ur Culture Indicated? Urine Glucose (NEGATIVE) mg/dL Influenza Type A Ag (NEGATIVE) Influenza Type B Ag (NEGATIVE) RSV (PCR) (Negative) SARS-CoV-2 (PCR) (NEGATIVE) 01/05/22 01/05/22 01/05/22 Range/Units 16:10 17:53 19:00 WBC (4.0-10.5) K/mm3 RBC (4.1-5.6) M/mm3 Hgb (12.5-18.0) gm/dl Hct (42-50) % MCV (78-100) fl MCH (26-32) pg MCHC (32-36) g/dl RDW (11.5-14.0) % Plt Count (150-450) K/mm3 MPV (7.5-11.0) fl Gran % (36.0-66.0) % Eos # (Auto) (0-0.5) Absolute Lymphs (auto) (1.0-4.6) Absolute Monos (auto) (0.0-1.3) Lymphocytes % (24.0-44.0) % Monocytes % (0.0-12.0) % Eosinophils % (0.00-5.0) % Basophils % (0.0-0.4) % Absolute Granulocytes (1.4-6.9) Basophils # (0-0.4) pO2/FiO2 Ratio % VBG pH (7.32-7.42) VBG pCO2 at Pat Temp (42-55) mm/Hg VBG pO2 at Pat Temp (25-40) mm/Hg VBG HCO3 (22-28) meq/L VBG O2 Sat (Evelyn) (95-100) VBG Base Excess (-2.0-2.0) VBG Hemoglobin VBG Carboxyhemoglobin (0.0-6.9) % T HGB POC Potassium (3.5-5.1) Sodium (137-145) mmol/L Potassium (3.5-5.1) mmol/L Chloride (98-107) mmol/L Carbon Dioxide (22-30) mmol/L Anion Gap (5-15) MEQ/L BUN (9-20) mg/dL Creatinine (0.66-1.25) mg/dL Estimated GFR ML/MIN Glucose (74-106) mg/dL POC Glucometer (74 to 106) mg/dL Hemoglobin A1c (4.5-6.0) % Lactic Acid 1.5 (0.4-2.0) Calcium (8.4-10.2) mg/dL Magnesium 2.0 (1.6-2.3) mg/dL Total Bilirubin (0.2-1.3) mg/dL AST (17-59) U/L ALT (0-50) U/L Alkaline Phosphatase (38-126) U/L Serum Total Protein (6.3-8.2) g/dL Albumin (3.5-5.0) g/dL Urinalys Dipstick Clnc Urine Color (YELLOW) Urine Appearance (CLEAR) Urine pH (5-6) Ur Specific [place] (1.005-1.025) POC Urine Protein Conf (Negative) Urine Ketones (NEGATIVE) Urine Nitrite (NEGATIVE) Urine Bilirubin (NEGATIVE) Urine Urobilinogen (0-1) mg/dL Urine Leukocytes (NEGATIVE) Urine WBC (Auto) (0-5) /HPF Urine RBC (Auto) (0-2) /HPF U Epithel Cells (Auto) (FEW) /HPF Urine Bacteria (Auto) (NEGATIVE) /HPF Urine RBC (0-5) Konrad/ul Ur Culture Indicated? Urine Glucose (NEGATIVE) mg/dL Influenza Type A Ag NEGATIVE (NEGATIVE) Influenza Type B Ag NEGATIVE (NEGATIVE) RSV (PCR) NEGATIVE (Negative) SARS-CoV-2 (PCR) NEGATIVE (NEGATIVE) 01/05/22 01/05/22 01/05/22 Range/Units 19:14 19:14 20:06 WBC (4.0-10.5) K/mm3 RBC (4.1-5.6) M/mm3 Hgb (12.5-18.0) gm/dl Hct (42-50) % MCV (78-100) fl MCH (26-32) pg MCHC (32-36) g/dl RDW (11.5-14.0) % Plt Count (150-450) K/mm3 MPV (7.5-11.0) fl Gran % (36.0-66.0) % Eos # (Auto) (0-0.5) Absolute Lymphs (auto) (1.0-4.6) Absolute Monos (auto) (0.0-1.3) Lymphocytes % (24.0-44.0) % Monocytes % (0.0-12.0) % Eosinophils % (0.00-5.0) % Basophils % (0.0-0.4) % Absolute Granulocytes (1.4-6.9) Basophils # (0-0.4) pO2/FiO2 Ratio % VBG pH (7.32-7.42) VBG pCO2 at Pat Temp (42-55) mm/Hg VBG pO2 at Pat Temp (25-40) mm/Hg VBG HCO3 (22-28) meq/L VBG O2 Sat (Evelyn) (95-100) VBG Base Excess (-2.0-2.0) VBG Hemoglobin VBG Carboxyhemoglobin (0.0-6.9) % T HGB POC Potassium (3.5-5.1) Sodium 132 L (137-145) mmol/L Potassium 4.0 (3.5-5.1) mmol/L Chloride 96 L (98-107) mmol/L Carbon Dioxide 21 L (22-30) mmol/L Anion Gap 19.3 H (5-15) MEQ/L BUN 17 (9-20) mg/dL Creatinine 0.60 L (0.66-1.25) mg/dL Estimated GFR > 60.0 ML/MIN Glucose 552 H* (74-106) mg/dL POC Glucometer 465 H 424 H (74 to 106) mg/dL Hemoglobin A1c (4.5-6.0) % Lactic Acid (0.4-2.0) Calcium 9.3 (8.4-10.2) mg/dL Magnesium (1.6-2.3) mg/dL Total Bilirubin (0.2-1.3) mg/dL AST (17-59) U/L ALT (0-50) U/L Alkaline Phosphatase (38-126) U/L Serum Total Protein (6.3-8.2) g/dL Albumin (3.5-5.0) g/dL Urinalys Dipstick Clnc Urine Color (YELLOW) Urine Appearance (CLEAR) Urine pH (5-6) Ur Specific [place] (1.005-1.025) POC Urine Protein Conf (Negative) Urine Ketones (NEGATIVE) Urine Nitrite (NEGATIVE) Urine Bilirubin (NEGATIVE) Urine Urobilinogen (0-1) mg/dL Urine Leukocytes (NEGATIVE) Urine WBC (Auto) (0-5) /HPF Urine RBC (Auto) (0-2) /HPF U Epithel Cells (Auto) (FEW) /HPF Urine Bacteria (Auto) (NEGATIVE) /HPF Urine RBC (0-5) Konrad/ul Ur Culture Indicated? Urine Glucose (NEGATIVE) mg/dL Influenza Type A Ag (NEGATIVE) Influenza Type B Ag (NEGATIVE) RSV (PCR) (Negative) SARS-CoV-2 (PCR) (NEGATIVE) 01/05/22 01/05/22 01/05/22 Range/Units 21:04 22:02 22:56 WBC (4.0-10.5) K/mm3 RBC (4.1-5.6) M/mm3 Hgb (12.5-18.0) gm/dl Hct (42-50) % MCV (78-100) fl MCH (26-32) pg MCHC (32-36) g/dl RDW (11.5-14.0) % Plt Count (150-450) K/mm3 MPV (7.5-11.0) fl Gran % (36.0-66.0) % Eos # (Auto) (0-0.5) Absolute Lymphs (auto) (1.0-4.6) Absolute Monos (auto) (0.0-1.3) Lymphocytes % (24.0-44.0) % Monocytes % (0.0-12.0) % Eosinophils % (0.00-5.0) % Basophils % (0.0-0.4) % Absolute Granulocytes (1.4-6.9) Basophils # (0-0.4) pO2/FiO2 Ratio % VBG pH (7.32-7.42) VBG pCO2 at Pat Temp (42-55) mm/Hg VBG pO2 at Pat Temp (25-40) mm/Hg VBG HCO3 (22-28) meq/L VBG O2 Sat (Evelyn) (95-100) VBG Base Excess (-2.0-2.0) VBG Hemoglobin VBG Carboxyhemoglobin (0.0-6.9) % T HGB POC Potassium (3.5-5.1) Sodium (137-145) mmol/L Potassium (3.5-5.1) mmol/L Chloride (98-107) mmol/L Carbon Dioxide (22-30) mmol/L Anion Gap (5-15) MEQ/L BUN (9-20) mg/dL Creatinine (0.66-1.25) mg/dL Estimated GFR ML/MIN Glucose (74-106) mg/dL POC Glucometer 522 H* 487 H 387 H (74 to 106) mg/dL Hemoglobin A1c (4.5-6.0) % Lactic Acid (0.4-2.0) Calcium (8.4-10.2) mg/dL Magnesium (1.6-2.3) mg/dL Total Bilirubin (0.2-1.3) mg/dL AST (17-59) U/L ALT (0-50) U/L Alkaline Phosphatase (38-126) U/L Serum Total Protein (6.3-8.2) g/dL Albumin (3.5-5.0) g/dL Urinalys Dipstick Clnc Urine Color (YELLOW) Urine Appearance (CLEAR) Urine pH (5-6) Ur Specific [place] (1.005-1.025) POC Urine Protein Conf (Negative) Urine Ketones (NEGATIVE) Urine Nitrite (NEGATIVE) Urine Bilirubin (NEGATIVE) Urine Urobilinogen (0-1) mg/dL Urine Leukocytes (NEGATIVE) Urine WBC (Auto) (0-5) /HPF Urine RBC (Auto) (0-2) /HPF U Epithel Cells (Auto) (FEW) /HPF Urine Bacteria (Auto) (NEGATIVE) /HPF Urine RBC (0-5) Konrad/ul Ur Culture Indicated? Urine Glucose (NEGATIVE) mg/dL Influenza Type A Ag (NEGATIVE) Influenza Type B Ag (NEGATIVE) RSV (PCR) (Negative) SARS-CoV-2 (PCR) (NEGATIVE) 01/05/22 01/06/22 01/06/22 Range/Units 23:10 00:03 01:03 WBC (4.0-10.5) K/mm3 RBC (4.1-5.6) M/mm3 Hgb (12.5-18.0) gm/dl Hct (42-50) % MCV (78-100) fl MCH (26-32) pg MCHC (32-36) g/dl RDW (11.5-14.0) % Plt Count (150-450) K/mm3 MPV (7.5-11.0) fl Gran % (36.0-66.0) % Eos # (Auto) (0-0.5) Absolute Lymphs (auto) (1.0-4.6) Absolute Monos (auto) (0.0-1.3) Lymphocytes % (24.0-44.0) % Monocytes % (0.0-12.0) % Eosinophils % (0.00-5.0) % Basophils % (0.0-0.4) % Absolute Granulocytes (1.4-6.9) Basophils # (0-0.4) pO2/FiO2 Ratio % VBG pH (7.32-7.42) VBG pCO2 at Pat Temp (42-55) mm/Hg VBG pO2 at Pat Temp (25-40) mm/Hg VBG HCO3 (22-28) meq/L VBG O2 Sat (Evelyn) (95-100) VBG Base Excess (-2.0-2.0) VBG Hemoglobin VBG Carboxyhemoglobin (0.0-6.9) % T HGB POC Potassium (3.5-5.1) Sodium 136 L (137-145) mmol/L Potassium 4.3 (3.5-5.1) mmol/L Chloride 101 (98-107) mmol/L Carbon Dioxide 27 (22-30) mmol/L Anion Gap 12.6 (5-15) MEQ/L BUN 17 (9-20) mg/dL Creatinine 0.66 (0.66-1.25) mg/dL Estimated GFR > 60.0 ML/MIN Glucose 412 H (74-106) mg/dL POC Glucometer 307 H 290 H (74 to 106) mg/dL Hemoglobin A1c (4.5-6.0) % Lactic Acid (0.4-2.0) Calcium 9.3 (8.4-10.2) mg/dL Magnesium (1.6-2.3) mg/dL Total Bilirubin (0.2-1.3) mg/dL AST (17-59) U/L ALT (0-50) U/L Alkaline Phosphatase (38-126) U/L Serum Total Protein (6.3-8.2) g/dL Albumin (3.5-5.0) g/dL Urinalys Dipstick Clnc Urine Color (YELLOW) Urine Appearance (CLEAR) Urine pH (5-6) Ur Specific [place] (1.005-1.025) POC Urine Protein Conf (Negative) Urine Ketones (NEGATIVE) Urine Nitrite (NEGATIVE) Urine Bilirubin (NEGATIVE) Urine Urobilinogen (0-1) mg/dL Urine Leukocytes (NEGATIVE) Urine WBC (Auto) (0-5) /HPF Urine RBC (Auto) (0-2) /HPF U Epithel Cells (Auto) (FEW) /HPF Urine Bacteria (Auto) (NEGATIVE) /HPF Urine RBC (0-5) Konrad/ul Ur Culture Indicated? Urine Glucose (NEGATIVE) mg/dL Influenza Type A Ag (NEGATIVE) Influenza Type B Ag (NEGATIVE) RSV (PCR) (Negative) SARS-CoV-2 (PCR) (NEGATIVE) 01/06/22 01/06/22 01/06/22 Range/Units 02:03 03:16 03:19 WBC 10.9 H (4.0-10.5) K/mm3 RBC 4.68 (4.1-5.6) M/mm3 Hgb 15.0 (12.5-18.0) gm/dl Hct 42.4 (42-50) % MCV 90.6 D (78-100) fl MCH 32.1 H (26-32) pg MCHC 35.4 (32-36) g/dl RDW 11.5 (11.5-14.0) % Plt Count 273 (150-450) K/mm3 MPV 12.2 H (7.5-11.0) fl Gran % 55.0 (36.0-66.0) % Eos # (Auto) 0.28 (0-0.5) Absolute Lymphs (auto) 3.86 (1.0-4.6) Absolute Monos (auto) 0.71 (0.0-1.3) Lymphocytes % 35.3 (24.0-44.0) % Monocytes % 6.5 (0.0-12.0) % Eosinophils % 2.6 (0.00-5.0) % Basophils % 0.6 (0.0-0.4) % Absolute Granulocytes 6.00 (1.4-6.9) Basophils # 0.07 (0-0.4) pO2/FiO2 Ratio % VBG pH (7.32-7.42) VBG pCO2 at Pat Temp (42-55) mm/Hg VBG pO2 at Pat Temp (25-40) mm/Hg VBG HCO3 (22-28) meq/L VBG O2 Sat (Evelyn) (95-100) VBG Base Excess (-2.0-2.0) VBG Hemoglobin VBG Carboxyhemoglobin (0.0-6.9) % T HGB POC Potassium (3.5-5.1) Sodium (137-145) mmol/L Potassium (3.5-5.1) mmol/L Chloride (98-107) mmol/L Carbon Dioxide (22-30) mmol/L Anion Gap (5-15) MEQ/L BUN (9-20) mg/dL Creatinine (0.66-1.25) mg/dL Estimated GFR ML/MIN Glucose (74-106) mg/dL POC Glucometer 268 H 238 H (74 to 106) mg/dL Hemoglobin A1c (4.5-6.0) % Lactic Acid (0.4-2.0) Calcium (8.4-10.2) mg/dL Magnesium (1.6-2.3) mg/dL Total Bilirubin (0.2-1.3) mg/dL AST (17-59) U/L ALT (0-50) U/L Alkaline Phosphatase (38-126) U/L Serum Total Protein (6.3-8.2) g/dL Albumin (3.5-5.0) g/dL Urinalys Dipstick Clnc Urine Color (YELLOW) Urine Appearance (CLEAR) Urine pH (5-6) Ur Specific [place] (1.005-1.025) POC Urine Protein Conf (Negative) Urine Ketones (NEGATIVE) Urine Nitrite (NEGATIVE) Urine Bilirubin (NEGATIVE) Urine Urobilinogen (0-1) mg/dL Urine Leukocytes (NEGATIVE) Urine WBC (Auto) (0-5) /HPF Urine RBC (Auto) (0-2) /HPF U Epithel Cells (Auto) (FEW) /HPF Urine Bacteria (Auto) (NEGATIVE) /HPF Urine RBC (0-5) Konrad/ul Ur Culture Indicated? Urine Glucose (NEGATIVE) mg/dL Influenza Type A Ag (NEGATIVE) Influenza Type B Ag (NEGATIVE) RSV (PCR) (Negative) SARS-CoV-2 (PCR) (NEGATIVE) 01/06/22 01/06/22 01/06/22 Range/Units 03:19 04:14 05:08 WBC (4.0-10.5) K/mm3 RBC (4.1-5.6) M/mm3 Hgb (12.5-18.0) gm/dl Hct (42-50) % MCV (78-100) fl MCH (26-32) pg MCHC (32-36) g/dl RDW (11.5-14.0) % Plt Count (150-450) K/mm3 MPV (7.5-11.0) fl Gran % (36.0-66.0) % Eos # (Auto) (0-0.5) Absolute Lymphs (auto) (1.0-4.6) Absolute Monos (auto) (0.0-1.3) Lymphocytes % (24.0-44.0) % Monocytes % (0.0-12.0) % Eosinophils % (0.00-5.0) % Basophils % (0.0-0.4) % Absolute Granulocytes (1.4-6.9) Basophils # (0-0.4) pO2/FiO2 Ratio % VBG pH (7.32-7.42) VBG pCO2 at Pat Temp (42-55) mm/Hg VBG pO2 at Pat Temp (25-40) mm/Hg VBG HCO3 (22-28) meq/L VBG O2 Sat (Evelyn) (95-100) VBG Base Excess (-2.0-2.0) VBG Hemoglobin VBG Carboxyhemoglobin (0.0-6.9) % T HGB POC Potassium (3.5-5.1) Sodium 136 L (137-145) mmol/L Potassium 4.0 (3.5-5.1) mmol/L Chloride 103 (98-107) mmol/L Carbon Dioxide 23 (22-30) mmol/L Anion Gap 13.1 (5-15) MEQ/L BUN 18 (9-20) mg/dL Creatinine 0.55 L (0.66-1.25) mg/dL Estimated GFR > 60.0 ML/MIN Glucose 264 H (74-106) mg/dL POC Glucometer 244 H 228 H (74 to 106) mg/dL Hemoglobin A1c (4.5-6.0) % Lactic Acid (0.4-2.0) Calcium 8.9 (8.4-10.2) mg/dL Magnesium (1.6-2.3) mg/dL Total Bilirubin 0.60 (0.2-1.3) mg/dL AST 16 L (17-59) U/L ALT 28 (0-50) U/L Alkaline Phosphatase 121 (38-126) U/L Serum Total Protein 6.5 (6.3-8.2) g/dL Albumin 3.8 (3.5-5.0) g/dL Urinalys Dipstick Clnc Urine Color (YELLOW) Urine Appearance (CLEAR) Urine pH (5-6) Ur Specific [place] (1.005-1.025) POC Urine Protein Conf (Negative) Urine Ketones (NEGATIVE) Urine Nitrite (NEGATIVE) Urine Bilirubin (NEGATIVE) Urine Urobilinogen (0-1) mg/dL Urine Leukocytes (NEGATIVE) Urine WBC (Auto) (0-5) /HPF Urine RBC (Auto) (0-2) /HPF U Epithel Cells (Auto) (FEW) /HPF Urine Bacteria (Auto) (NEGATIVE) /HPF Urine RBC (0-5) Konrad/ul Ur Culture Indicated? Urine Glucose (NEGATIVE) mg/dL Influenza Type A Ag (NEGATIVE) Influenza Type B Ag (NEGATIVE) RSV (PCR) (Negative) SARS-CoV-2 (PCR) (NEGATIVE) 01/06/22 01/06/22 01/06/22 Range/Units 06:04 06:57 08:12 WBC (4.0-10.5) K/mm3 RBC (4.1-5.6) M/mm3 Hgb (12.5-18.0) gm/dl Hct (42-50) % MCV (78-100) fl MCH (26-32) pg MCHC (32-36) g/dl RDW (11.5-14.0) % Plt Count (150-450) K/mm3 MPV (7.5-11.0) fl Gran % (36.0-66.0) % Eos # (Auto) (0-0.5) Absolute Lymphs (auto) (1.0-4.6) Absolute Monos (auto) (0.0-1.3) Lymphocytes % (24.0-44.0) % Monocytes % (0.0-12.0) % Eosinophils % (0.00-5.0) % Basophils % (0.0-0.4) % Absolute Granulocytes (1.4-6.9) Basophils # (0-0.4) pO2/FiO2 Ratio % VBG pH (7.32-7.42) VBG pCO2 at Pat Temp (42-55) mm/Hg VBG pO2 at Pat Temp (25-40) mm/Hg VBG HCO3 (22-28) meq/L VBG O2 Sat (Evelyn) (95-100) VBG Base Excess (-2.0-2.0) VBG Hemoglobin VBG Carboxyhemoglobin (0.0-6.9) % T HGB POC Potassium (3.5-5.1) Sodium (137-145) mmol/L Potassium (3.5-5.1) mmol/L Chloride (98-107) mmol/L Carbon Dioxide (22-30) mmol/L Anion Gap (5-15) MEQ/L BUN (9-20) mg/dL Creatinine (0.66-1.25) mg/dL Estimated GFR ML/MIN Glucose (74-106) mg/dL POC Glucometer 202 H 165 H 188 H (74 to 106) mg/dL Hemoglobin A1c (4.5-6.0) % Lactic Acid (0.4-2.0) Calcium (8.4-10.2) mg/dL Magnesium (1.6-2.3) mg/dL Total Bilirubin (0.2-1.3) mg/dL AST (17-59) U/L ALT (0-50) U/L Alkaline Phosphatase (38-126) U/L Serum Total Protein (6.3-8.2) g/dL Albumin (3.5-5.0) g/dL Urinalys Dipstick Clnc Urine Color (YELLOW) Urine Appearance (CLEAR) Urine pH (5-6) Ur Specific [place] (1.005-1.025) POC Urine Protein Conf (Negative) Urine Ketones (NEGATIVE) Urine Nitrite (NEGATIVE) Urine Bilirubin (NEGATIVE) Urine Urobilinogen (0-1) mg/dL Urine Leukocytes (NEGATIVE) Urine WBC (Auto) (0-5) /HPF Urine RBC (Auto) (0-2) /HPF U Epithel Cells (Auto) (FEW) /HPF Urine Bacteria (Auto) (NEGATIVE) /HPF Urine RBC (0-5) Konrad/ul Ur Culture Indicated? Urine Glucose (NEGATIVE) mg/dL Influenza Type A Ag (NEGATIVE) Influenza Type B Ag (NEGATIVE) RSV (PCR) (Negative) SARS-CoV-2 (PCR) (NEGATIVE) Accuchecks Date 01/06/22 Date 01/06/22 Date 01/06/22 Date 01/06/22 Date 01/06/22 Date 01/06/22 Date 01/06/22 Date 01/06/22 Date 01/06/22 Date 01/06/22 Date 01/05/22 Date 01/05/22 Date 01/05/22 Time 08:17 Time 07:00 Time 06:59 Time 06:05 Time 05:08 Time 03:15 Time 03:15 Time 02:05 Time 01:05 Time 12:05 Time 22:58 Time 22:06 Time 21:08 Assessment/Plan (1) DKA (diabetic ketoacidosis) Current Visit: Yes Status: Acute Qualifiers: Diabetes mellitus type: type 1 Diabetes mellitus complication detail: without coma Qualified Code(s): E10.10 - Type 1 diabetes mellitus with ketoacidosis without coma Assessment & Plan: Actually his CO2 was >15. However BS very very high. He tolerated the BS of 1155 surprisingly well, probably because his typical BS are very high (A1c >14). I advised him to f/u with Dr. Graham. "I don't like doctors" he said. RN has tried to educate him as well about his disease process. If his pump is functioning and BS are 100-400, and tolerating po, he can be discharged to home. Will check BMP once more prior to discharge. Code(s): E11.10 - TYPE 2 DIABETES MELLITUS WITH KETOACIDOSIS WITHOUT COMA (2) Noncompliance with medication regimen Current Visit: No Status: Chronic Code(s): Z91.14 - PATIENT'S OTHER NONCO MPLIANCE WITH MEDICATION REGIMEN Hospital Summary - Hospital Course Hospital Course: Pt is 21 yo noncompliant Type I diabetic on insulin pump who drank copious amounts of sugar and came to ER with BS 1155. Labs have otherwise been nonacute. He will be discharged to home on his insulin pump and to f/u with DR. Steel. I advised him to f/u with Dr. Graham. Will be discharged to home if BS reasonable today and tolerating po. - Vitals & Intake/Output Vital Signs: Vital Signs Temperature 97.9 F 01/06/22 07:46 Pulse Rate 64 01/06/22 08:00 Respiratory Rate 19 01/06/22 07:46 Blood Pressure 103/64 01/06/22 07:46 O2 Sat by Pulse Oximetry 97 01/06/22 07:46 Intake & Output: Intake & Output 01/03/22 01/04/22 01/05/22 01/06/22 11:59 11:59 11:59 11:59 Intake Total 1520 Balance 1520 Weight 66.6 kg - Lab Result Diagrams: 01/06/22 03:19 01/06/22 03:19 Lab Results-Last 24 Hrs: Lab Results-Last 24 Hours 01/05/22 01/05/22 01/05/22 Range/Units 15:30 15:30 15:30 WBC 9.8 (4.0-10.5) K/mm3 RBC 5.30 (4.1-5.6) M/mm3 Hgb 16.8 (12.5-18.0) gm/dl Hct 51.4 H (42-50) % MCV 97.0 (78-100) fl MCH 31.7 (26-32) pg MCHC 32.7 (32-36) g/dl RDW 11.9 (11.5-14.0) % Plt Count 285 (150-450) K/mm3 MPV 13.2 H (7.5-11.0) fl Gran % 84.9 H (36.0-66.0) % Eos # (Auto) 0.04 (0-0.5) Absolute Lymphs (auto) 1.07 (1.0-4.6) Absolute Monos (auto) 0.32 (0.0-1.3) Lymphocytes % 11.0 L (24.0-44.0) % Monocytes % 3.3 (0.0-12.0) % Eosinophils % 0.4 (0.00-5.0) % Basophils % 0.4 (0.0-0.4) % Absolute Granulocytes 8.28 H (1.4-6.9) Basophils # 0.04 (0-0.4) pO2/FiO2 Ratio % VBG pH (7.32-7.42) VBG pCO2 at Pat Temp (42-55) mm/Hg VBG pO2 at Pat Temp (25-40) mm/Hg VBG HCO3 (22-28) meq/L VBG O2 Sat (Evelyn) (95-100) VBG Base Excess (-2.0-2.0) VBG Hemoglobin VBG Carboxyhemoglobin (0.0-6.9) % T HGB POC Potassium (3.5-5.1) Sodium 130 L (137-145) mmol/L Potassium 4.9 (3.5-5.1) mmol/L Chloride 87 L (98-107) mmol/L Carbon Dioxide 17 L (22-30) mmol/L Anion Gap 30.9 H (5-15) MEQ/L BUN 20 (9-20) mg/dL Creatinine 0.88 (0.66-1.25) mg/dL Estimated GFR > 60.0 ML/MIN Glucose 1155 H* (74-106) mg/dL POC Glucometer (74 to 106) mg/dL Hemoglobin A1c (4.5-6.0) % Lactic Acid (0.4-2.0) Calcium 10.2 (8.4-10.2) mg/dL Magnesium (1.6-2.3) mg/dL Total Bilirubin 1.20 (0.2-1.3) mg/dL AST 37 (17-59) U/L ALT 36 (0-50) U/L Alkaline Phosphatase 195 H (38-126) U/L Serum Total Protein 7.7 (6.3-8.2) g/dL Albumin 4.9 (3.5-5.0) g/dL Urinalys Dipstick Clnc MAIN LAB Urine Color YELLOW (YELLOW) Urine Appearance CLEAR (CLEAR) Urine pH 5.5 (5-6) Ur Specific [place] <=1.005 (1.005-1.025) POC Urine Protein Conf NEGATIVE (Negative) Urine Ketones LARGE-80 (NEGATIVE) Urine Nitrite NEGATIVE (NEGATIVE) Urine Bilirubin NEGATIVE (NEGATIVE) Urine Urobilinogen 0.2 (0-1) mg/dL Urine Leukocytes NEGATIVE (NEGATIVE) Urine WBC (Auto) NONE SEEN (0-5) /HPF Urine RBC (Auto) NONE SEEN (0-2) /HPF U Epithel Cells (Auto) NONE (FEW) /HPF Urine Bacteria (Auto) RARE (NEGATIVE) /HPF Urine RBC NEGATIVE (0-5) Konrad/ul Ur Culture Indicated? NO Urine Glucose >=1000 (NEGATIVE) mg/dL Influenza Type A Ag (NEGATIVE) Influenza Type B Ag (NEGATIVE) RSV (PCR) (Negative) SARS-CoV-2 (PCR) (NEGATIVE) 01/05/22 01/05/22 01/05/22 Range/Units 15:30 15:45 15:55 WBC (4.0-10.5) K/mm3 RBC (4.1-5.6) M/mm3 Hgb (12.5-18.0) gm/dl Hct (42-50) % MCV (78-100) fl MCH (26-32) pg MCHC (32-36) g/dl RDW (11.5-14.0) % Plt Count (150-450) K/mm3 MPV (7.5-11.0) fl Gran % (36.0-66.0) % Eos # (Auto) (0-0.5) Absolute Lymphs (auto) (1.0-4.6) Absolute Monos (auto) (0.0-1.3) Lymphocytes % (24.0-44.0) % Monocytes % (0.0-12.0) % Eosinophils % (0.00-5.0) % Basophils % (0.0-0.4) % Absolute Granulocytes (1.4-6.9) Basophils # (0-0.4) pO2/FiO2 Ratio 21.0 % VBG pH 7.20 L* (7.32-7.42) VBG pCO2 at Pat Temp 50 (42-55) mm/Hg VBG pO2 at Pat Temp 39 (25-40) mm/Hg VBG HCO3 19.5 L (22-28) meq/L VBG O2 Sat (Evelyn) 67.9 L (95-100) VBG Base Excess -8.7 L (-2.0-2.0) VBG Hemoglobin 17.2 VBG Carboxyhemoglobin 3.0 (0.0-6.9) % T HGB POC Potassium 4.9 (3.5-5.1) Sodium (137-145) mmol/L Potassium (3.5-5.1) mmol/L Chloride (98-107) mmol/L Carbon Dioxide (22-30) mmol/L Anion Gap (5-15) MEQ/L BUN (9-20) mg/dL Creatinine (0.66-1.25) mg/dL Estimated GFR ML/MIN Glucose (74-106) mg/dL POC Glucometer (74 to 106) mg/dL Hemoglobin A1c > 14.00 H (4.5-6.0) % Lactic Acid 3.5 H (0.4-2.0) Calcium (8.4-10.2) mg/dL Magnesium (1.6-2.3) mg/dL Total Bilirubin (0.2-1.3) mg/dL AST (17-59) U/L ALT (0-50) U/L Alkaline Phosphatase (38-126) U/L Serum Total Protein (6.3-8.2) g/dL Albumin (3.5-5.0) g/dL Urinalys Dipstick Clnc Urine Color (YELLOW) Urine Appearance (CLEAR) Urine pH (5-6) Ur Specific [place] (1.005-1.025) POC Urine Protein Conf (Negative) Urine Ketones (NEGATIVE) Urine Nitrite (NEGATIVE) Urine Bilirubin (NEGATIVE) Urine Urobilinogen (0-1) mg/dL Urine Leukocytes (NEGATIVE) Urine WBC (Auto) (0-5) /HPF Urine RBC (Auto) (0-2) /HPF U Epithel Cells (Auto) (FEW) /HPF Urine Bacteria (Auto) (NEGATIVE) /HPF Urine RBC (0-5) Konrad/ul Ur Culture Indicated? Urine Glucose (NEGATIVE) mg/dL Influenza Type A Ag (NEGATIVE) Influenza Type B Ag (NEGATIVE) RSV (PCR) (Negative) SARS-CoV-2 (PCR) (NEGATIVE) 01/05/22 01/05/22 01/05/22 Range/Units 16:10 17:53 19:00 WBC (4.0-10.5) K/mm3 RBC (4.1-5.6) M/mm3 Hgb (12.5-18.0) gm/dl Hct (42-50) % MCV (78-100) fl MCH (26-32) pg MCHC (32-36) g/dl RDW (11.5-14.0) % Plt Count (150-450) K/mm3 MPV (7.5-11.0) fl Gran % (36.0-66.0) % Eos # (Auto) (0-0.5) Absolute Lymphs (auto) (1.0-4.6) Absolute Monos (auto) (0.0-1.3) Lymphocytes % (24.0-44.0) % Monocytes % (0.0-12.0) % Eosinophils % (0.00-5.0) % Basophils % (0.0-0.4) % Absolute Granulocytes (1.4-6.9) Basophils # (0-0.4) pO2/FiO2 Ratio % VBG pH (7.32-7.42) VBG pCO2 at Pat Temp (42-55) mm/Hg VBG pO2 at Pat Temp (25-40) mm/Hg VBG HCO3 (22-28) meq/L VBG O2 Sat (Evelyn) (95-100) VBG Base Excess (-2.0-2.0) VBG Hemoglobin VBG Carboxyhemoglobin (0.0-6.9) % T HGB POC Potassium (3.5-5.1) Sodium (137-145) mmol/L Potassium (3.5-5.1) mmol/L Chloride (98-107) mmol/L Carbon Dioxide (22-30) mmol/L Anion Gap (5-15) MEQ/L BUN (9-20) mg/dL Creatinine (0.66-1.25) mg/dL Estimated GFR ML/MIN Glucose (74-106) mg/dL POC Glucometer (74 to 106) mg/dL Hemoglobin A1c (4.5-6.0) % Lactic Acid 1.5 (0.4-2.0) Calcium (8.4-10.2) mg/dL Magnesium 2.0 (1.6-2.3) mg/dL Total Bilirubin (0.2-1.3) mg/dL AST (17-59) U/L ALT (0-50) U/L Alkaline Phosphatase (38-126) U/L Serum Total Protein (6.3-8.2) g/dL Albumin (3.5-5.0) g/dL Urinalys Dipstick Clnc Urine Color (YELLOW) Urine Appearance (CLEAR) Urine pH (5-6) Ur Specific [place] (1.005-1.025) POC Urine Protein Conf (Negative) Urine Ketones (NEGATIVE) Urine Nitrite (NEGATIVE) Urine Bilirubin (NEGATIVE) Urine Urobilinogen (0-1) mg/dL Urine Leukocytes (NEGATIVE) Urine WBC (Auto) (0-5) /HPF Urine RBC (Auto) (0-2) /HPF U Epithel Cells (Auto) (FEW) /HPF Urine Bacteria (Auto) (NEGATIVE) /HPF Urine RBC (0-5) Konrad/ul Ur Culture Indicated? Urine Glucose (NEGATIVE) mg/dL Influenza Type A Ag NEGATIVE (NEGATIVE) Influenza Type B Ag NEGATIVE (NEGATIVE) RSV (PCR) NEGATIVE (Negative) SARS-CoV-2 (PCR) NEGATIVE (NEGATIVE) 01/05/22 01/05/22 01/05/22 Range/Units 19:14 19:14 20:06 WBC (4.0-10.5) K/mm3 RBC (4.1-5.6) M/mm3 Hgb (12.5-18.0) gm/dl Hct (42-50) % MCV (78-100) fl MCH (26-32) pg MCHC (32-36) g/dl RDW (11.5-14.0) % Plt Count (150-450) K/mm3 MPV (7.5-11.0) fl Gran % (36.0-66.0) % Eos # (Auto) (0-0.5) Absolute Lymphs (auto) (1.0-4.6) Absolute Monos (auto) (0.0-1.3) Lymphocytes % (24.0-44.0) % Monocytes % (0.0-12.0) % Eosinophils % (0.00-5.0) % Basophils % (0.0-0.4) % Absolute Granulocytes (1.4-6.9) Basophils # (0-0.4) pO2/FiO2 Ratio % VBG pH (7.32-7.42) VBG pCO2 at Pat Temp (42-55) mm/Hg VBG pO2 at Pat Temp (25-40) mm/Hg VBG HCO3 (22-28) meq/L VBG O2 Sat (Evelyn) (95-100) VBG Base Excess (-2.0-2.0) VBG Hemoglobin VBG Carboxyhemoglobin (0.0-6.9) % T HGB POC Potassium (3.5-5.1) Sodium 132 L (137-145) mmol/L Potassium 4.0 (3.5-5.1) mmol/L Chloride 96 L (98-107) mmol/L Carbon Dioxide 21 L (22-30) mmol/L Anion Gap 19.3 H (5-15) MEQ/L BUN 17 (9-20) mg/dL Creatinine 0.60 L (0.66-1.25) mg/dL Estimated GFR > 60.0 ML/MIN Glucose 552 H* (74-106) mg/dL POC Glucometer 465 H 424 H (74 to 106) mg/dL Hemoglobin A1c (4.5-6.0) % Lactic Acid (0.4-2.0) Calcium 9.3 (8.4-10.2) mg/dL Magnesium (1.6-2.3) mg/dL Total Bilirubin (0.2-1.3) mg/dL AST (17-59) U/L ALT (0-50) U/L Alkaline Phosphatase (38-126) U/L Serum Total Protein (6.3-8.2) g/dL Albumin (3.5-5.0) g/dL Urinalys Dipstick Clnc Urine Color (YELLOW) Urine Appearance (CLEAR) Urine pH (5-6) Ur Specific [place] (1.005-1.025) POC Urine Protein Conf (Negative) Urine Ketones (NEGATIVE) Urine Nitrite (NEGATIVE) Urine Bilirubin (NEGATIVE) Urine Urobilinogen (0-1) mg/dL Urine Leukocytes (NEGATIVE) Urine WBC (Auto) (0-5) /HPF Urine RBC (Auto) (0-2) /HPF U Epithel Cells (Auto) (FEW) /HPF Urine Bacteria (Auto) (NEGATIVE) /HPF Urine RBC (0-5) Konrad/ul Ur Culture Indicated? Urine Glucose (NEGATIVE) mg/dL Influenza Type A Ag (NEGATIVE) Influenza Type B Ag (NEGATIVE) RSV (PCR) (Negative) SARS-CoV-2 (PCR) (NEGATIVE) 01/05/22 01/05/22 01/05/22 Range/Units 21:04 22:02 22:56 WBC (4.0-10.5) K/mm3 RBC (4.1-5.6) M/mm3 Hgb (12.5-18.0) gm/dl Hct (42-50) % MCV (78-100) fl MCH (26-32) pg MCHC (32-36) g/dl RDW (11.5-14.0) % Plt Count (150-450) K/mm3 MPV (7.5-11.0) fl Gran % (36.0-66.0) % Eos # (Auto) (0-0.5) Absolute Lymphs (auto) (1.0-4.6) Absolute Monos (auto) (0.0-1.3) Lymphocytes % (24.0-44.0) % Monocytes % (0.0-12.0) % Eosinophils % (0.00-5.0) % Basophils % (0.0-0.4) % Absolute Granulocytes (1.4-6.9) Basophils # (0-0.4) pO2/FiO2 Ratio % VBG pH (7.32-7.42) VBG pCO2 at Pat Temp (42-55) mm/Hg VBG pO2 at Pat Temp (25-40) mm/Hg VBG HCO3 (22-28) meq/L VBG O2 Sat (Evelyn) (95-100) VBG Base Excess (-2.0-2.0) VBG Hemoglobin VBG Carboxyhemoglobin (0.0-6.9) % T HGB POC Potassium (3.5-5.1) Sodium (137-145) mmol/L Potassium (3.5-5.1) mmol/L Chloride (98-107) mmol/L Carbon Dioxide (22-30) mmol/L Anion Gap (5-15) MEQ/L BUN (9-20) mg/dL Creatinine (0.66-1.25) mg/dL Estimated GFR ML/MIN Glucose (74-106) mg/dL POC Glucometer 522 H* 487 H 387 H (74 to 106) mg/dL Hemoglobin A1c (4.5-6.0) % Lactic Acid (0.4-2.0) Calcium (8.4-10.2) mg/dL Magnesium (1.6-2.3) mg/dL Total Bilirubin (0.2-1.3) mg/dL AST (17-59) U/L ALT (0-50) U/L Alkaline Phosphatase (38-126) U/L Serum Total Protein (6.3-8.2) g/dL Albumin (3.5-5.0) g/dL Urinalys Dipstick Clnc Urine Color (YELLOW) Urine Appearance (CLEAR) Urine pH (5-6) Ur Specific [place] (1.005-1.025) POC Urine Protein Conf (Negative) Urine Ketones (NEGATIVE) Urine Nitrite (NEGATIVE) Urine Bilirubin (NEGATIVE) Urine Urobilinogen (0-1) mg/dL Urine Leukocytes (NEGATIVE) Urine WBC (Auto) (0-5) /HPF Urine RBC (Auto) (0-2) /HPF U Epithel Cells (Auto) (FEW) /HPF Urine Bacteria (Auto) (NEGATIVE) /HPF Urine RBC (0-5) Konrad/ul Ur Culture Indicated? Urine Glucose (NEGATIVE) mg/dL Influenza Type A Ag (NEGATIVE) Influenza Type B Ag (NEGATIVE) RSV (PCR) (Negative) SARS-CoV-2 (PCR) (NEGATIVE) 01/05/22 01/06/22 01/06/22 Range/Units 23:10 00:03 01:03 WBC (4.0-10.5) K/mm3 RBC (4.1-5.6) M/mm3 Hgb (12.5-18.0) gm/dl Hct (42-50) % MCV (78-100) fl MCH (26-32) pg MCHC (32-36) g/dl RDW (11.5-14.0) % Plt Count (150-450) K/mm3 MPV (7.5-11.0) fl Gran % (36.0-66.0) % Eos # (Auto) (0-0.5) Absolute Lymphs (auto) (1.0-4.6) Absolute Monos (auto) (0.0-1.3) Lymphocytes % (24.0-44.0) % Monocytes % (0.0-12.0) % Eosinophils % (0.00-5.0) % Basophils % (0.0-0.4) % Absolute Granulocytes (1.4-6.9) Basophils # (0-0.4) pO2/FiO2 Ratio % VBG pH (7.32-7.42) VBG pCO2 at Pat Temp (42-55) mm/Hg VBG pO2 at Pat Temp (25-40) mm/Hg VBG HCO3 (22-28) meq/L VBG O2 Sat (Evelyn) (95-100) VBG Base Excess (-2.0-2.0) VBG Hemoglobin VBG Carboxyhemoglobin (0.0-6.9) % T HGB POC Potassium (3.5-5.1) Sodium 136 L (137-145) mmol/L Potassium 4.3 (3.5-5.1) mmol/L Chloride 101 (98-107) mmol/L Carbon Dioxide 27 (22-30) mmol/L Anion Gap 12.6 (5-15) MEQ/L BUN 17 (9-20) mg/dL Creatinine 0.66 (0.66-1.25) mg/dL Estimated GFR > 60.0 ML/MIN Glucose 412 H (74-106) mg/dL POC Glucometer 307 H 290 H (74 to 106) mg/dL Hemoglobin A1c (4.5-6.0) % Lactic Acid (0.4-2.0) Calcium 9.3 (8.4-10.2) mg/dL Magnesium (1.6-2.3) mg/dL Total Bilirubin (0.2-1.3) mg/dL AST (17-59) U/L ALT (0-50) U/L Alkaline Phosphatase (38-126) U/L Serum Total Protein (6.3-8.2) g/dL Albumin (3.5-5.0) g/dL Urinalys Dipstick Clnc Urine Color (YELLOW) Urine Appearance (CLEAR) Urine pH (5-6) Ur Specific [place] (1.005-1.025) POC Urine Protein Conf (Negative) Urine Ketones (NEGATIVE) Urine Nitrite (NEGATIVE) Urine Bilirubin (NEGATIVE) Urine Urobilinogen (0-1) mg/dL Urine Leukocytes (NEGATIVE) Urine WBC (Auto) (0-5) /HPF Urine RBC (Auto) (0-2) /HPF U Epithel Cells (Auto) (FEW) /HPF Urine Bacteria (Auto) (NEGATIVE) /HPF Urine RBC (0-5) Konrad/ul Ur Culture Indicated? Urine Glucose (NEGATIVE) mg/dL Influenza Type A Ag (NEGATIVE) Influenza Type B Ag (NEGATIVE) RSV (PCR) (Negative) SARS-CoV-2 (PCR) (NEGATIVE) 01/06/22 01/06/22 01/06/22 Range/Units 02:03 03:16 03:19 WBC 10.9 H (4.0-10.5) K/mm3 RBC 4.68 (4.1-5.6) M/mm3 Hgb 15.0 (12.5-18.0) gm/dl Hct 42.4 (42-50) % MCV 90.6 D (78-100) fl MCH 32.1 H (26-32) pg MCHC 35.4 (32-36) g/dl RDW 11.5 (11.5-14.0) % Plt Count 273 (150-450) K/mm3 MPV 12.2 H (7.5-11.0) fl Gran % 55.0 (36.0-66.0) % Eos # (Auto) 0.28 (0-0.5) Absolute Lymphs (auto) 3.86 (1.0-4.6) Absolute Monos (auto) 0.71 (0.0-1.3) Lymphocytes % 35.3 (24.0-44.0) % Monocytes % 6.5 (0.0-12.0) % Eosinophils % 2.6 (0.00-5.0) % Basophils % 0.6 (0.0-0.4) % Absolute Granulocytes 6.00 (1.4-6.9) Basophils # 0.07 (0-0.4) pO2/FiO2 Ratio % VBG pH (7.32-7.42) VBG pCO2 at Pat Temp (42-55) mm/Hg VBG pO2 at Pat Temp (25-40) mm/Hg VBG HCO3 (22-28) meq/L VBG O2 Sat (Evelyn) (95-100) VBG Base Excess (-2.0-2.0) VBG Hemoglobin VBG Carboxyhemoglobin (0.0-6.9) % T HGB POC Potassium (3.5-5.1) Sodium (137-145) mmol/L Potassium (3.5-5.1) mmol/L Chloride (98-107) mmol/L Carbon Dioxide (22-30) mmol/L Anion Gap (5-15) MEQ/L BUN (9-20) mg/dL Creatinine (0.66-1.25) mg/dL Estimated GFR ML/MIN Glucose (74-106) mg/dL POC Glucometer 268 H 238 H (74 to 106) mg/dL Hemoglobin A1c (4.5-6.0) % Lactic Acid (0.4-2.0) Calcium (8.4-10.2) mg/dL Magnesium (1.6-2.3) mg/dL Total Bilirubin (0.2-1.3) mg/dL AST (17-59) U/L ALT (0-50) U/L Alkaline Phosphatase (38-126) U/L Serum Total Protein (6.3-8.2) g/dL Albumin (3.5-5.0) g/dL Urinalys Dipstick Clnc Urine Color (YELLOW) Urine Appearance (CLEAR) Urine pH (5-6) Ur Specific [place] (1.005-1.025) POC Urine Protein Conf (Negative) Urine Ketones (NEGATIVE) Urine Nitrite (NEGATIVE) Urine Bilirubin (NEGATIVE) Urine Urobilinogen (0-1) mg/dL Urine Leukocytes (NEGATIVE) Urine WBC (Auto) (0-5) /HPF Urine RBC (Auto) (0-2) /HPF U Epithel Cells (Auto) (FEW) /HPF Urine Bacteria (Auto) (NEGATIVE) /HPF Urine RBC (0-5) Konrad/ul Ur Culture Indicated? Urine Glucose (NEGATIVE) mg/dL Influenza Type A Ag (NEGATIVE) Influenza Type B Ag (NEGATIVE) RSV (PCR) (Negative) SARS-CoV-2 (PCR) (NEGATIVE) 01/06/22 01/06/22 01/06/22 Range/Units 03:19 04:14 05:08 WBC (4.0-10.5) K/mm3 RBC (4.1-5.6) M/mm3 Hgb (12.5-18.0) gm/dl Hct (42-50) % MCV (78-100) fl MCH (26-32) pg MCHC (32-36) g/dl RDW (11.5-14.0) % Plt Count (150-450) K/mm3 MPV (7.5-11.0) fl Gran % (36.0-66.0) % Eos # (Auto) (0-0.5) Absolute Lymphs (auto) (1.0-4.6) Absolute Monos (auto) (0.0-1.3) Lymphocytes % (24.0-44.0) % Monocytes % (0.0-12.0) % Eosinophils % (0.00-5.0) % Basophils % (0.0-0.4) % Absolute Granulocytes (1.4-6.9) Basophils # (0-0.4) pO2/FiO2 Ratio % VBG pH (7.32-7.42) VBG pCO2 at Pat Temp (42-55) mm/Hg VBG pO2 at Pat Temp (25-40) mm/Hg VBG HCO3 (22-28) meq/L VBG O2 Sat (Evelyn) (95-100) VBG Base Excess (-2.0-2.0) VBG Hemoglobin VBG Carboxyhemoglobin (0.0-6.9) % T HGB POC Potassium (3.5-5.1) Sodium 136 L (137-145) mmol/L Potassium 4.0 (3.5-5.1) mmol/L Chloride 103 (98-107) mmol/L Carbon Dioxide 23 (22-30) mmol/L Anion Gap 13.1 (5-15) MEQ/L BUN 18 (9-20) mg/dL Creatinine 0.55 L (0.66-1.25) mg/dL Estimated GFR > 60.0 ML/MIN Glucose 264 H (74-106) mg/dL POC Glucometer 244 H 228 H (74 to 106) mg/dL Hemoglobin A1c (4.5-6.0) % Lactic Acid (0.4-2.0) Calcium 8.9 (8.4-10.2) mg/dL Magnesium (1.6-2.3) mg/dL Total Bilirubin 0.60 (0.2-1.3) mg/dL AST 16 L (17-59) U/L ALT 28 (0-50) U/L Alkaline Phosphatase 121 (38-126) U/L Serum Total Protein 6.5 (6.3-8.2) g/dL Albumin 3.8 (3.5-5.0) g/dL Urinalys Dipstick Clnc Urine Color (YELLOW) Urine Appearance (CLEAR) Urine pH (5-6) Ur Specific [place] (1.005-1.025) POC Urine Protein Conf (Negative) Urine Ketones (NEGATIVE) Urine Nitrite (NEGATIVE) Urine Bilirubin (NEGATIVE) Urine Urobilinogen (0-1) mg/dL Urine Leukocytes (NEGATIVE) Urine WBC (Auto) (0-5) /HPF Urine RBC (Auto) (0-2) /HPF U Epithel Cells (Auto) (FEW) /HPF Urine Bacteria (Auto) (NEGATIVE) /HPF Urine RBC (0-5) Konrad/ul Ur Culture Indicated? Urine Glucose (NEGATIVE) mg/dL Influenza Type A Ag (NEGATIVE) Influenza Type B Ag (NEGATIVE) RSV (PCR) (Negative) SARS-CoV-2 (PCR) (NEGATIVE) 01/06/22 01/06/22 01/06/22 Range/Units 06:04 06:57 08:12 WBC (4.0-10.5) K/mm3 RBC (4.1-5.6) M/mm3 Hgb (12.5-18.0) gm/dl Hct (42-50) % MCV (78-100) fl MCH (26-32) pg MCHC (32-36) g/dl RDW (11.5-14.0) % Plt Count (150-450) K/mm3 MPV (7.5-11.0) fl Gran % (36.0-66.0) % Eos # (Auto) (0-0.5) Absolute Lymphs (auto) (1.0-4.6) Absolute Monos (auto) (0.0-1.3) Lymphocytes % (24.0-44.0) % Monocytes % (0.0-12.0) % Eosinophils % (0.00-5.0) % Basophils % (0.0-0.4) % Absolute Granulocytes (1.4-6.9) Basophils # (0-0.4) pO2/FiO2 Ratio % VBG pH (7.32-7.42) VBG pCO2 at Pat Temp (42-55) mm/Hg VBG pO2 at Pat Temp (25-40) mm/Hg VBG HCO3 (22-28) meq/L VBG O2 Sat (Evelyn) (95-100) VBG Base Excess (-2.0-2.0) VBG Hemoglobin VBG Carboxyhemoglobin (0.0-6.9) % T HGB POC Potassium (3.5-5.1) Sodium (137-145) mmol/L Potassium (3.5-5.1) mmol/L Chloride (98-107) mmol/L Carbon Dioxide (22-30) mmol/L Anion Gap (5-15) MEQ/L BUN (9-20) mg/dL Creatinine (0.66-1.25) mg/dL Estimated GFR ML/MIN Glucose (74-106) mg/dL POC Glucometer 202 H 165 H 188 H (74 to 106) mg/dL Hemoglobin A1c (4.5-6.0) % Lactic Acid (0.4-2.0) Calcium (8.4-10.2) mg/dL Magnesium (1.6-2.3) mg/dL Total Bilirubin (0.2-1.3) mg/dL AST (17-59) U/L ALT (0-50) U/L Alkaline Phosphatase (38-126) U/L Serum Total Protein (6.3-8.2) g/dL Albumin (3.5-5.0) g/dL Urinalys Dipstick Clnc Urine Color (YELLOW) Urine Appearance (CLEAR) Urine pH (5-6) Ur Specific [place] (1.005-1.025) POC Urine Protein Conf (Negative) Urine Ketones (NEGATIVE) Urine Nitrite (NEGATIVE) Urine Bilirubin (NEGATIVE) Urine Urobilinogen (0-1) mg/dL Urine Leukocytes (NEGATIVE) Urine WBC (Auto) (0-5) /HPF Urine RBC (Auto) (0-2) /HPF U Epithel Cells (Auto) (FEW) /HPF Urine Bacteria (Auto) (NEGATIVE) /HPF Urine RBC (0-5) Konrad/ul Ur Culture Indicated? Urine Glucose (NEGATIVE) mg/dL Influenza Type A Ag (NEGATIVE) Influenza Type B Ag (NEGATIVE) RSV (PCR) (Negative) SARS-CoV-2 (PCR) (NEGATIVE) Micro Results-Entire Visit: Accuchecks Date 01/06/22 Date 01/06/22 Date 01/06/22 Date 01/06/22 Date 01/06/22 Date 01/06/22 Date 01/06/22 Date 01/06/22 Date 01/06/22 Date 01/06/22 Date 01/05/22 Date 01/05/22 Date 01/05/22 Time 08:17 Time 07:00 Time 06:59 Time 06:05 Time 05:08 Time 03:15 Time 03:15 Time 02:05 Time 01:05 Time 12:05 Time 22:58 Time 22:06 Time 21:08 - Procedures and Test Procedures and Tests throughout Hospitalization: Therapy Orders & Screens 01/05/22 17:59 Smoking Cessation Education ONCE Comment: Diagnosis: Hyperglycemia Smoking Status: Current every day smoker How long have you smoked: 1ppd Have you smoked in the past 12 months: Yes Approximately how many cigarettes per day: 10 Do you dip or chew tobacco: No - Discharge Disposition: Home, Self-Care Condition: Stable Prescriptions: Continue Insulin Lispro [Humalog] 0 unit SQ DAILY Follow up with: KARUNA STEEL [Primary Care Provider] -
[2022-01-06] MEDS: HUMALOG SQ PRN ×2 (09:49→13:12)
[2022-01-06] MEDS ORDERED: NON-FORMULARY ITEM (Insulin Lispro 100 UNIT/ML Ml) SQ SCH (10:00)
[2022-01-06 15:00] LABS: ANION GAP 13.7 MEQ/L (5-15); BLOOD UREA NITROGEN 16 mg/dL (9-20); CHLORIDE 101 mmol/L (98-107); Calcium 8.1 mg/dL (8.4-10.2); Carbon Dioxide 21 mmol/L (22-30); Creatinine 1 0.54 mg/dL (0.66-1.25); EST GLOMERULAR FILTRATION RATE > 60.0 ML/MIN; Glucose 480 mg/dL (74-106); SODIUM 132 mmol/L (137-145)
[2022-01-06 16:36] VITALS: BP 114/78; O2SAT 99
[2022-01-06 18:03] VITALS: PULSE 63
== END 2022-01-06 17:51 | disposition left against medical advice (07) ==
LOC: ED 15:09 → ICU 17:30 → INTOOBSV 17:30
PROVIDERS: ADMIT Family Medicine; ATTEND Family Medicine
DX: E11.10 Type 2 diabetes mellitus with ketoacidosis without coma (principal); Z91.14 Patient's other noncompliance with medication regimen; Z79.899 Other long term (current) drug therapy; Z20.828 Contact with and (suspected) exposure to other viral communicable diseases; Z72.0 Tobacco use
CPT/HCPCS: 0241U; 36000; 36415; 80048; 80053; 81015; 82805; 82947; 83036; 83605; 83735; 85025; 93268; 96374; 96375; 99285; G0378; J1815; J1817; J2405

== ENCOUNTER 2023-02-23 07:10 | Emergency (ER) | payer OTHER ==
[2023-02-23 07:36] VITALS: BP 124/77; PULSE 87; O2SAT 97
[2023-02-23] MEDS ORDERED: KEFLEX 500 MG PO ONE (07:52)
--- NOTE | 2023-02-23 07:52 | ERPHSYRPT ---
- History of Present Illness Time Seen by Provider: 02/23/23 07:40 Source: patient Exam Limitations: no limitations Patient Subjective Stated Complaint: pt states he brike a molar on the lt bottom jaw abot a m onth ago and has been having pain for last 2 days Triage Nursing Assessment: pt alert and oreinted, answers questions approp. pt ambulates into room with steady gait noted. respirations nonlabored, broken tooth noted to lt lower jaw. Physician History: This is a diabetic 22-year-old white male who was in [facility] a month ago and he sustained a fracture of his left lower molar. He did not start having pain unti l yesterday. He took a single old amoxicillin he had. The pain has persisted and he is out of antibiotics. Patient has generalized poor dentition. Timing/Duration: yesterday Severity: mild Associated Symptoms: denies symptoms, No fever Allergies/Adverse Reactions: No Known Drug Allergies Allergy (Verified 02/23/23 07:36) Home Medications: Insulin Lispro [Humalog] 0 unit SQ DAILY 03/21/14 [History] Hx Tetanus, Diphtheria Vaccination/Date Given: Yes Hx Influenza Vaccination/Date Given: No Hx Pneumococcal Vaccination/Date Given: No Immunizations Up to Date: Yes Travel Risk - International Travel Have you traveled outside of the country in past 3 weeks: No - Coronavirus Screening Are you exhibiting any of the following symptoms?: No Close contact with a COVID-19 positive Pt in past 14-21 Days: No - Vaccine Status Have you recieved a Covid-19 vaccination: No - Review of Systems Constitutional: No Symptoms Eyes: No Symptoms Ears, Nose, & Throat: Other (Dental pain) Respiratory: No Symptoms Cardiac: No Symptoms Abdominal/Gastrointestinal: No Symptoms Genitourinary Symptoms: No Symptoms Musculoskeletal: No Symptoms Skin: No Symptoms Neurological: No Symptoms Psychological: No Symptoms Endocrine: No Symptoms Hematologic/Lymphatic: No Symptoms Immunological/Allergic: No Symptoms All Other Systems: Reviewed and Negative - Past Medical History Pertinent Past Medical History: Yes Neurological History: Seizures ENT History: No Pertinent History Cardiac History: No Pertinent History Respiratory History: No Pertinent History Endocrine Medical History: Diabetes Type I, Hypoglycemia Musculoskeletal History: No Pertinent History GI Medical History: No Pertinent History History: No Pertinent History Psycho-Social History: Attention Deficit Disorder, Depression Male Reproductive Disorders: No Pertinent History Other Medical History: 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 - Past Surgical History Past Surgical History: No Neuro Surgical History: No Pertinent History Cardiac: No Pertinent History Respiratory: No Pertinent History Gastrointestinal: No Pertinent History Genitourinary: No Pertinent History Musculoskeletal: No Pertinent History Male Surgical History: No Pertinent History - Social History Smoking Status: Current every day smoker How long have you smoked: 1/4 Exposure to second hand smoke: Yes Drug Use: other Patient Lives Alone: No Significant Family History: no pertinent family hx - Nursing Vital Signs Nursing Vital Signs: Initial Vital Signs Temperature 98.0 F 02/23/23 07:31 Pulse Rate 87 02/23/23 07:31 Respiratory Rate 16 02/23/23 07:31 Blood Pressure 124/77 02/23/23 07:31 O2 Sat by Pulse Oximetry 97 02/23/23 07:31 Pain Scale Pain Intensity 5 - Physical Exam General Appearance: no apparent distress, alert, thin Eye Exam: PERRL/EOMI, eyes nml inspection Ears, Nose, Throat Exam: moist mucous membranes, other (Generalized poor dentition with multiple fractured teeth. 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 Level of complexity and the work-up performed is based on review of the patient's past medical history, review of the patient's drug allergies, review of the patient's medication list, history of present illness and findings on physical examination. No laboratory studies or radiographic studies are necessary in this patient. Counseled pt/family regarding: diagnosis, need for follow-up Medical Desision Making - Diagnostic Testing Diagnostic test were ordered, analyzed, and reviewed by me: No - Risk of complications The pt has a mod risk of morbidity or mortality based on: Need for prescription drug management - Departure Departure Disposition: Home Clinical Impression: Pain, dental, Infected dental caries Condition: Stable Critical Care Time: No Referrals: KARUNA ADAMS [Primary Care Provider] - Follow up/PCP as directed Additional Instructions: Use Tylenol and ibuprofen for pain control. Call your dentist today to make arranges for follow-up appointment. Take your antibiotics as prescribed. Prescriptions: Cephalexin Mh 500 mg [Keflex 500 mg] 500 mg PO TID #21 cap
[2023-02-23] MEDS ORDERED: KEFLEX 500 MG ONE (07:54)
== END 2023-02-23 07:59 | disposition home or self-care (01) ==
LOC: ED 07:10
DX: K02.9 Dental caries, unspecified (principal); K04.7 Periapical abscess without sinus; K08.89 Other specified disorders of teeth and supporting structures; E10.9 Type 1 diabetes mellitus without complications; Z28.310 Unvaccinated for COVID-19; Z72.0 Tobacco use
CPT/HCPCS: 99281; A9270-GY

== ENCOUNTER 2023-02-24 03:01 | Emergency (ER) | payer OTHER ==
[2023-02-24 03:18] VITALS: O2SAT 97
--- NOTE | 2023-02-24 03:25 | ERPHSYRPT ---
- History of Present Illness Time Seen by Provider: 02/24/23 03:25 Source: patient Exam Limitations: no limitations Physician History: This is a 22-year-old white male patient who returns emergency department less than 24 hours after he was seen here in the emergency room for the same issue. Patient admits to taking three 0.5 mg Xanax prior to arrival to help control his pain medicine. He denies using Tylenol and ibuprofen. He does not have those medications. He called the dentist office but they were closed. He is back here today for pain control. Severity: mild (To moderate) Associated Symptoms: denies symptoms Allergies/Adverse Reactions: No Known Drug Allergies Allergy (Verified 02/23/23 07:36) Home Medications: Insulin Lispro [Humalog] 0 unit SQ DAILY 03/21/14 [History] Hx Tetanus, Diphtheria Vaccination/Date Given: Yes Hx Influenza Vaccination/Date Given: No Hx Pneumococcal Vaccination/Date Given: No Travel Risk - International Travel Have you traveled outside of the country in past 3 weeks: No - Coronavirus Screening Are you exhibiting any of the following symptoms?: No Close contact with a COVID-19 positive Pt in past 14-21 Days: No - Vaccine Status Have you recieved a Covid-19 vaccination: No - Review of Systems Constitutional: No Symptoms Eyes: No Symptoms Ears, Nose, & Throat: Other (Dental pain) Respiratory: No Symptoms Cardiac: No Symptoms Abdominal/Gastrointestinal: No Symptoms Genitourinary Symptoms: No Symptoms Musculoskeletal: No Symptoms Skin: No Symptoms Neurological: No Symptoms Psychological: No Symptoms Endocrine: No Symptoms Hematologic/Lymphatic: No Symptoms Immunological/Allergic: No Symptoms All Other Systems: Reviewed and Negative - Past Medical History Pertinent Past Medical History: Yes Neurological History: Seizures ENT History: No Pertinent History Cardiac History: No Pertinent History Respiratory History: No Pertinent History Endocrine Medical History: Diabetes Type I, Hypoglycemia Musculoskeletal History: No Pertinent History GI Medical History: No Pertinent History History: No Pertinent History Psycho-Social History: Attention Deficit Disorder, Depression Male Reproductive Disorders: No Pertinent History Other Medical History: 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 - Past Surgical History Past Surgical History: No Neuro Surgical History: No Pertinent History Cardiac: No Pertinent History Respiratory: No Pertinent History Gastrointestinal: No Pertinent History Genitourinary: No Pertinent History Musculoskeletal: No Pertinent History Male Surgical History: No Pertinent History - Social History Smoking Status: Current every day smoker How long have you smoked: 1/ Exposure to second hand smoke: Yes Drug Use: none, other Patient Lives Alone: No Significant Family History: no pertinent family hx - Nursing Vital Signs Nursing Vital Signs: Initial Vital Signs Temperature 99.1 F 02/24/23 03:01 Pulse Rate 112 H 02/24/23 03:01 Respiratory Rate 18 02/24/23 03:01 Blood Pressure 142/89 02/24/23 03:01 O2 Sat by Pulse Oximetry 97 02/24/23 03:01 Pain Scale Pain Intensity 7 - Physical Exam General Appearance: no apparent distress, alert Eye Exam: PERRL/EOMI, eyes nml inspection Ears, Nose, Throat Exam: normal ENT inspection, moist mucous membranes Neck Exam: normal inspection, non-tender, supple, full range of motion Respiratory Exam: airway intact, No chest tenderness, No respiratory distress Gastrointestinal/Abdomen Exam: No tenderness Rectal Exam: not done Extremity Exam: normal inspection, normal range of motion, pelvis stable Neurologic Exam: alert, oriented x 3, 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 02/24/23 03:50 The patient admits to using Xanax prior to arrival. He states he used 3 Xanax 0.5 mg tablets. He does not have any Tylenol or or ibuprofen at home we will provide him with Tylenol and ibuprofen medication here today. Counseled pt/family regarding: diagnosis, need for follow-up Medical Desision Making - Diagnostic Testing Diagnostic test were ordered, analyzed, and reviewed by me: Yes - Risk of complications Minimal Risk: Minimal risk of morbidity - Departure Departure Disposition: Home Clinical Impression: Pain, dental Condition: Stable Critical Care Time: No Referrals: KARUNA ADAMS [Primary Care Provider] - Follow up/PCP as directed Additional Instructions: Continue using ibuprofen and Tylenol [id number]. Do not use more than 4 g of Tylenol in a 24-hour period. Use ibuprofen 600 mg orally every 8 hours with food for 5 days. May and topical numbing agents from the pharmacy to help with pain control. Call the dentist on 02/25/2023 for further evaluation and management.
[2023-02-24] MEDS ORDERED: MOTRIN 600 MG PO ONE (03:55)
[2023-02-24] MEDS ORDERED: TYLENOL 325 MG PO ONE (03:55)
[2023-02-24] MEDS ORDERED: TYLENOL 325 MG ONE (03:57)
[2023-02-24] MEDS ORDERED: MOTRIN 600 MG ONE (03:57)
[2023-02-24 04:03] VITALS: BP 136/80; PULSE 109
== END 2023-02-24 04:07 | disposition home or self-care (01) ==
LOC: ED 03:01
DX: K08.89 Other specified disorders of teeth and supporting structures (principal); E10.9 Type 1 diabetes mellitus without complications; Z72.0 Tobacco use
CPT/HCPCS: 99282; A9270-GY

== ENCOUNTER 2023-03-28 22:41 | Emergency (ER) | payer OTHER ==
[2023-03-28] MEDS ORDERED: TORAdol 30 mg Injection IM ONE (22:50)
[2023-03-28] MEDS ORDERED: Rocephin 1000 MG INJ IM ONE (22:50)
--- NOTE | 2023-03-28 22:55 | ERPHSYRPT ---
- History of Present Illness Time Seen by Provider: 03/28/23 22:50 Physician History: Patient is 22-year-old male with significant past medical history of multiple teeth do care and multiple tooth abscess for which patient has a multiple ER visits. Patient has a appointment with her dentist for extraction of all the te eth in 7 days. Patient is already on cephalexin for his dental abscess. Patient pain got worse so he came to the emergency room he denies any other symptoms Timing/Duration: today Associated Symptoms: denies symptoms Allergies/Adverse Reactions: No Known Drug Allergies Allergy (Verified 02/23/23 07:36) Home Medications: Insulin Lispro [Humalog] 0 unit SQ DAILY 03/21/14 [History] Hx Tetanus, Diphtheria Vaccination/Date Given: Yes Hx Influenza Vaccination/Date Given: No Hx Pneumococcal Vaccination/Date Given: No Travel Risk - Vaccine Status Have you recieved a Covid-19 vaccination: No - Review of Systems Constitutional: No Fever, No Chills Eyes: No Symptoms Ears, Nose, & Throat: No Symptoms, Mouth Pain, Loose Teeth Respiratory: No Cough, No Dyspnea Cardiac: No Chest Pain, No Edema, No Syncope Abdominal/Gastrointestinal: No Abdominal Pain, No Nausea, No Vomiting, No Diarrhea Genitourinary Symptoms: No Dysuria Musculoskeletal: No Back Pain, No Neck Pain Skin: No Rash Neurological: No Dizziness, No Focal Weakness, No Sensory Changes Psychological: No Symptoms Endocrine: No Symptoms All Other Systems: Reviewed and Negative - Past Medical History Pertinent Past Medical History: Yes Neurological History: Seizures ENT History: No Pertinent History Cardiac History: No Pertinent History Respiratory History: No Pertinent History Endocrine Medical History: Diabetes Type I, Hypoglycemia Musculoskeletal History: No Pertinent History GI Medical History: No Pertinent History History: No Pertinent History Psycho-Social History: Attention Deficit Disorder, Depression Male Reproductive Disorders: No Pertinent History Other Medical History: 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 - Past Surgical History Past Surgical History: No Neuro Surgical History: No Pertinent History Cardiac: No Pertinent History Respiratory: No Pertinent History Gastrointestinal: No Pertinent History Genitourinary: No Pertinent History Musculoskeletal: No Pertinent History Male Surgical History: No Pertinent History - Social History Smoking Status: Current every day smoker How long have you smoked: 1/4 Exposure to second hand smoke: Yes Drug Use: none, other Patient Lives Alone: No Significant Family History: no pertinent family hx - Physical Exam General Appearance: no apparent distress, alert Eye Exam: PERRL/EOMI, eyes nml inspection Ears, Nose, Throat Exam: normal ENT inspection, TMs normal, pharynx normal, mois t mucous membranes, other (multiple teeth decay) Neck Exam: normal inspection, non-tender, supple, full range of motion Respiratory Exam: normal breath sounds, lungs clear, No respiratory distress Cardiovascular Exam: regular rate/rhythm, normal heart sounds, normal peripheral pulses Gastrointestinal/Abdomen Exam: soft, normal bowel sounds, No tenderness, No mass Back Exam: normal inspection, normal range of motion, No CVA tenderness, No vertebral tenderness Extremity Exam: normal inspection, normal range of motion, pelvis stable Neurologic Exam: alert, oriented x 3, cooperative, normal mood/affect, nml cerebellar function, nml station & gait, sensation nml, No motor deficits Skin Exam: normal color, warm, dry, No rash Lymphatic Exam: No adenopathy - Course Nursing assessment & vital signs reviewed: Yes - Progress Progress: unchanged, pain not gone completely Counseled pt/family regarding: diagnosis, need for follow-up (with Dentist) Medical Desision Making - Risk of complications Minimal Risk: Minimal risk of morbidity - Departure Departure Disposition: Home Clinical Impression: Dental infection, Infected dental caries Condition: Stable Critical Care Time: No Referrals: KARUNA ADAMS [Primary Care Provider] - Follow up/PCP as directed Instructions: Tooth Abscess (DC), Tooth Decay, Adult (DC), Dental Pain (DC) Additional Instructions: Discharge/Care Plan MAGDALENA HZOU was seen on 03/28/23 in the Emergency Room. The patient was counseled regarding Diagnosis,Lab results, Imaging studies, need for follow up and when to return to the Emergency Room. Prescriptions given: Discharge Note I have spoken with the patient and/or caregivers. I have explained the patient's condition, diagnosis and treatment plan based on the information available to me at this time. I have answered the patient's and/or caregiver's questions and addressed any concerns. The patient and/or caregivers have as good understanding of the patient's diagnosis, condition and treatment plan as can be expected at this point. The vital signs have been stable. The patient's condition is stable and appropriate for discharge from the emergency department. The patient will pursue further outpatient evaluation with the primary care physician or other designated or consulting physician as outlined in the discharge instructions. The patient and/or caregivers are agreeable to this plan of care and follow-up instructions have been explained in detail. The patient and/or caregivers have received these instruction. The patient/and or caregivers are aware that any significant change in condition or worsening of symptoms should prompt an immediate return to this or the closest emergency department or call 911. MAGDALENA ZHOU was seen on 03/28/23 n the Emergency Room. At that time you were treated for an emergent condition, during your visit Laboratory, Radiology and/or other procedures may have been ordered. It is very important that you follow-up with your Primary Care Physician KARUNA ADAMS within the next 24-48 hours to review your Emergency Room visit and the final results of testing that was ordered. Some test results such as Urine Cultures, Blood Cultures, and other cultures if ordered will not be finalized for 24-48 hours. If you do not have a Primary Care Provider please call the medical records department at [phone] ext [phone] to obtain a copy of your results or you may sign into our patient portal to obtain these results by visiting us @ [email or web address] and completing the following steps: 1. Click on the Patient Portal link 2. Click the Patient Self Enrollment Link to complete the enrollment form and entering your 3. Once the enrollment form is completed you will receive an email with a temporary ID and password at the email address you provided. 4. Next choose a user name and password. Your user name must be at least 4 characters long and your password must be at least 4 characters long. 5. Choose a security question from the list and provide your answer to the question. If you already have signed into the Health Portal you may access your Health Care Information 16/03 by the following steps: 1. Login to our website @ [email or web address] 2. Enter your original user name and password. FAQS The [facility] Portal is an online tool that contains your Lab Results, Radiology Reports, Visit History, Discharge Instructions and Health Summary Lab and Radiology Results will not be available for 72 hours on the portal. The Portal is a secure site, passwords are encryted and URLs are re-written so they cannot be copied and pasted. You and authorized family members are the only ones who can access your Portal. Also there is a timeout feature that protects your information if you leave the Portal page open. If you have technical difficulty please use the Contact Us link on the page this will allow you to submit any questions you have regarding the Portal or you may contact the Medical Record Department at [phone] ext [phone]. Prescriptions: Cephalexin Mh 500 mg [Keflex 500 mg] 500 mg PO Q6H #40 cap
[2023-03-28 22:57] VITALS: RESP 16; TEMP 97.6; O2SAT 98
[2023-03-28] MEDS ORDERED: Rocephin 1000 MG INJ ONE (22:58)
[2023-03-28] MEDS ORDERED: TORAdol 30 mg Injection ONE (22:58)
[2023-03-28] MEDS ORDERED: XYLOCAINE 1% HCL 20 ML MDV ONE (23:00)
[2023-03-28 23:28] VITALS: BP 131/77; PULSE 104
== END 2023-03-28 23:26 | disposition home or self-care (01) ==
LOC: ED 22:41
DX: K04.7 Periapical abscess without sinus (principal); K02.9 Dental caries, unspecified; K08.89 Other specified disorders of teeth and supporting structures; E10.9 Type 1 diabetes mellitus without complications; Z28.310 Unvaccinated for COVID-19; Z72.0 Tobacco use
CPT/HCPCS: 96372; 99283; J0696; J1885

== ENCOUNTER 2023-03-29 05:21 | Emergency (ER) | payer OTHER ==
[2023-03-29] MEDS ORDERED: TORAdol 30 mg Injection IM ONE (05:31)
[2023-03-29 05:34] VITALS: RESP 16; TEMP 97
--- NOTE | 2023-03-29 05:35 | ERPHSYRPT ---
- History of Present Illness Time Seen by Provider: 03/29/23 05:32 Source: patient Patient Subjective Stated Complaint: pt states his tooth pain increased again around 0330 and hurts worse now. Triage Nursing Assessment: pt alert and oriented, answers questions approp. pt ambulates into room with steady gait noted. respirations nonlabored. skin warm and dry. poor dentition noted. Physician History: pt states his tooth pain increased again around 0330 and hurts worse now. Timing/Duration: today Associated Symptoms: denies symptoms Allergies/Adverse Reactions: No Known Drug Allergies Allergy (Verified 03/29/23 05:24) Home Medications: Insulin Lispro [Humalog] 0 unit SQ DAILY 03/21/14 [History] Hx Tetanus, Diphtheria Vaccination/Date Given: Yes Hx Influenza Vaccination/Date Given: No Hx Pneumococcal Vaccination/Date Given: No Immunizations Up to Date: Yes Travel Risk - International Travel Have you traveled outside of the country in past 3 weeks: No - Coronavirus Screening Are you exhibiting any of the following symptoms?: No Close contact with a COVID-19 positive Pt in past 14-21 Days: No - Vaccine Status Have you recieved a Covid-19 vaccination: No - Review of Systems Constitutional: No Symptoms Eyes: No Symptoms Ears, Nose, & Throat: Loose Teeth Respiratory: No Symptoms Cardiac: No Symptoms Abdominal/Gastrointestinal: No Symptoms Genitourinary Symptoms: No Symptoms Musculoskeletal: No Symptoms - Past Medical History Pertinent Past Medical History: Yes Neurological History: Seizures ENT History: No Pertinent History Cardiac History: No Pertinent History Respiratory History: No Pertinent History Endocrine Medical History: Diabetes Type I, Hypoglycemia Musculoskeletal History: No Pertinent History GI Medical History: No Pertinent History History: No Pertinent History Psycho-Social History: Attention Deficit Disorder, Depression Male Reproductive Disorders: No Pertinent History Other Medical History: 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 - Past Surgical History Past Surgical History: No Neuro Surgical History: No Pertinent History Cardiac: No Pertinent History Respiratory: No Pertinent History Gastrointestinal: No Pertinent History Genitourinary: No Pertinent History Musculoskeletal: No Pertinent History Male Surgical History: No Pertinent History - Social History Smoking Status: Current every day smoker How long have you smoked: 8 yrs Exposure to second hand smoke: Yes Drug Use: none Patient Lives Alone: No Significant Family History: no pertinent family hx - Nursing Vital Signs Nursing Vital Signs: Initial Vital Signs Temperature 97.0 F 03/29/23 05:25 Pulse Rate 81 03/29/23 05:25 Respiratory Rate 16 03/29/23 05:25 Blood Pressure 138/82 03/29/23 05:25 O2 Sat by Pulse Oximetry 99 03/29/23 05:25 Pain Scale Pain Intensity 7 - Physical Exam General Appearance: no apparent distress Eye Exam: PERRL/EOMI Ears, Nose, Throat Exam: normal ENT inspection Neck Exam: normal inspection Respiratory Exam: normal breath sounds Cardiovascular Exam: regular rate/rhythm Gastrointestinal/Abdomen Exam: soft Back Exam: normal inspection Neurologic Exam: alert, oriented x 3 SpO2: 99 - Course Nursing assessment & vital signs reviewed: Yes Ordered Tests: Medication Summary Generic Name Dose Route Start Last Admin Trade Name Freq PRN Reason Stop Dose Admin Ketorolac Tromethamine 60 mg 03/29/23 05:31 Ketorolac Tromethamine 30 Mg/Ml Inj IM 03/29/23 05:32 STAT ONE - Progress Progress: improved Counseled pt/family regarding: diagnosis, need for follow-up Medical Desision Making - Risk of complications Minimal Risk: Minimal risk of morbidity - Departure Departure Disposition: Home Clinical Impression: Pain, dental Condition: Stable Critical Care Time: No Referrals: KARUNA ADAMS [Primary Care Provider] - Follow up/PCP as directed Instructions: Tooth Abscess (DC), Tooth Decay, Adult (DC), Dental Pain (DC) Additional Instructions: Discharge/Care Plan MAGDALENA ZHOU was seen on 03/29/23 in the Emergency Room. The patient was counseled regarding Diagnosis,Lab results, Imaging studies, need for follow up and when to return to the Emergency Room. Prescriptions given: Discharge Note I have spoken with the patient and/or caregivers. I have explained the patient's condition, diagnosis and treatment plan based on the information available to me at this time. I have answered the patient's and/or caregiver's questions and addressed any concerns. The patient and/or caregivers have as good understanding of the patient's diagnosis, condition and treatment plan as can be expected at this point. The vital signs have been stable. The patient's condition is stable and appropriate for discharge from the emergency department. The patient will pursue further outpatient evaluation with the primary care physician or other designated or consulting physician as outlined in the discharge instructions. The patient and/or caregivers are agreeable to this plan of care and follow-up instructions have been explained in detail. The patient and/or caregivers have received these instruction. The patient/and or caregivers are aware that any significant change in condition or worsening of symptoms should prompt an immediate return to this or the closest emergency department or call 911. MAGDALENA ZHOU was seen on 03/29/23 n the Emergency Room. At that time you were treated for an emergent condition, during your visit Laboratory, Radiology and/or other procedures may have been ordered. It is very important that you follow-up with your Primary Care Physician KARUNA ADAMS within the next 24-48 hours to review your Emergency Room visit and the final results of testing that was ordered. Some test results such as Urine Cultures, Blood Cultures, and other cultures if ordered will not be finalized for 24-48 hours. If you do not have a Primary Care Provider please call the medical records department at [phone] ext [phone] to obtain a copy of your results or you may sign into our patient portal to obtain these results by visiting us @ [email or web address] and completing the following steps: 1. Click on the Patient Portal link 2. Click the Patient Self Enrollment Link to complete the enrollment form and entering your 3. Once the enrollment form is completed you will receive an email with a temporary ID and password at the email address you provided. 4. Next choose a user name and password. Your user name must be at least 4 characters long and your password must be at least 4 characters long. 5. Choose a security question from the list and provide your answer to the question. If you already have signed into the Health Portal you may access your Health Care Information 16/03 by the following steps: 1. Login to our website @ [email or web address] 2. Enter your original user name and password. FAQS The [facility] Health Portal is an online tool that contains your Lab Results, Radiology Reports, Visit History, Discharge Instructions and Health Summary Lab and Radiology Results will not be available for 72 hours on the portal. The Portal is a secure site, passwords are encryted and URLs are re-written so they cannot be copied and pasted. You and authorized family members are the only ones who can access your Portal. Also there is a timeout feature that protects your information if you leave the Portal page open. If you have technical difficulty please use the Contact Us link on the page this will allow you to submit any questions you have regarding the Portal or you may contact the Medical Record Department at [phone] ext [phone]. Prescriptions: Ketorolac Trometh 10 mg Tab [TORAdol 10 MG TABLET] 10 mg PO QID #30 tablet
[2023-03-29] MEDS ORDERED: TORAdol 30 mg Injection ONE (05:39)
[2023-03-29 05:54] VITALS: BP 151/82; PULSE 84; O2SAT 97
== END 2023-03-29 06:01 | disposition home or self-care (01) ==
LOC: ED 05:21
DX: K08.89 Other specified disorders of teeth and supporting structures (principal); E10.9 Type 1 diabetes mellitus without complications; Z28.310 Unvaccinated for COVID-19; Z72.0 Tobacco use
CPT/HCPCS: 96372; 99282; J1885

== ENCOUNTER 2023-05-14 00:04 | Emergency (ER) | payer OTHER ==
[2023-05-14 00:17] VITALS: RESP 18; TEMP 97.6
[2023-05-14 01:16] VITALS: BP 121/73; PULSE 87; O2SAT 96
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
== END 2023-05-14 01:33 | disposition home or self-care (01) ==
LOC: ED 00:04
DX: S60.512A Abrasion of left hand, initial encounter (principal); S60.222A Contusion of left hand, initial encounter; V28.49XA Other motorcycle driver injured in noncollision transport accident in traffic accident, initial encounter; E10.9 Type 1 diabetes mellitus without complications; Z28.310 Unvaccinated for COVID-19; Z72.0 Tobacco use
CPT/HCPCS: 73130; 99282

== ENCOUNTER 2023-10-23 16:52 | Emergency (ER) | payer OTHER ==
--- NOTE | 2023-10-23 16:57 | ERPHSYRPT ---
- History of Present Illness Time Seen by Provider: 10/23/23 16:57 Source: patient, family Exam Limitations: no limitations Physician History: This is an insulin-dependent 22-year-old white male patient of Dr. Setel who is not typically compliant with his diet or medication as well as chemicals to avoid and presents to the emergency department with an elevated blood sugar. On arrival to our emergency department, the Accu-Chek machine read "high". Patient stated that in the last week he had a new insulin pump and the sensor was not working. Therefore he turned the unit off and disconnected it from his insulin pump. Today, he denies chest pain and he denies shortness of breath. He has not had any nausea or vomiting. However he had some cramping in both of his legs. Patient is a daily smoker of cigarettes. He does admit to ingesting alcohol in the last few days. He states it has been a rough 1 to 2 weeks in his life. Patient also admits to using THC and eating CBD Gummies. Patient has a history of seizure disorder, depression and ADD H. Timing/Duration: yesterday Severity: moderate Associated Symptoms: weakness, No nausea, No vomiting, No abdominal pain, No shortness of breath, No chest pain Allergies/Adverse Reactions: No Known Drug Allergies Allergy (Verified 10/23/23 17:21) Home Medications: Insulin Lispro [Humalog] 0 unit SQ DAILY 03/21/14 [History] Hx Tetanus, Diphtheria Vaccination/Date Given: Yes Hx Influenza Vaccination/Date Given: No Hx Pneumococcal Vaccination/Date Given: No Travel Risk - International Travel Have you traveled outside of the country in past 3 weeks: No - Coronavirus Screening Are you exhibiting any of the following symptoms?: No Close contact with a COVID-19 positive Pt in past 14-21 Days: No - Vaccine Status Have you recieved a Covid-19 vaccination: No - Review of Systems Constitutional: No Symptoms Eyes: No Symptoms Ears, Nose, & Throat: No Symptoms Respiratory: No Symptoms Cardiac: No Symptoms Abdominal/Gastrointestinal: No Symptoms Genitourinary Symptoms: No Symptoms Musculoskeletal: Arthralgias, Myalgias Skin: No Symptoms Neurological: No Symptoms Psychological: No Symptoms Endocrine: No Symptoms Hematologic/Lymphatic: No Symptoms Immunological/Allergic: No Symptoms All Other Systems: Reviewed and Negative - Past Medical History Pertinent Past Medical History: Yes Neurological History: Seizures ENT History: No Pertinent History Cardiac History: No Pertinent History Respiratory History: No Pertinent History Endocrine Medical History: Diabetes Type I, Hypoglycemia Musculoskeletal History: No Pertinent History GI Medical History: No Pertinent History History: No Pertinent History Psycho-Social History: Attention Deficit Disorder, Depression Male Reproductive Disorders: No Pertinent History Other Medical History: 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 - Past Surgical History Past Surgical History: No Neuro Surgical History: No Pertinent History Cardiac: No Pertinent History Respiratory: No Pertinent History Gastrointestinal: No Pertinent History Genitourinary: No Pertinent History Musculoskeletal: No Pertinent History Male Surgical History: No Pertinent History - Social History Smoking Status: Current every day smoker How long have you smoked: 8 yrs Exposure to second hand smoke: No Drug Use: none Patient Lives Alone: No Significant Family History: no pertinent family hx - Nursing Vital Signs Nursing Vital Signs: Initial Vital Signs Temperature 98.1 F 10/23/23 17:20 Pulse Rate 85 10/23/23 17:20 Respiratory Rate 20 10/23/23 17:20 Blood Pressure 128/70 10/23/23 17:20 O2 Sat by Pulse Oximetry 100 10/23/23 17:20 Pain Scale Pain Intensity 0 - Physical Exam General Appearance: no apparent distress, alert, anxiety, thin Eye Exam: PERRL/EOMI, eyes nml inspection Ears, Nose, Throat Exam: normal ENT inspection, moist mucous membranes, tonsillar exudate Neck Exam: normal inspection, non-tender, supple Respiratory Exam: normal breath sounds, lungs clear, airway intact, No chest tenderness, No respiratory distress Cardiovascular Exam: regular rate/rhythm, normal heart sounds, normal peripheral pulses Gastrointestinal/Abdomen Exam: soft, normal bowel sounds, No tenderness Rectal Exam: not done Back Exam: normal inspection, normal range of motion, No CVA tenderness Extremity Exam: normal inspection, pelvis stable Neurologic Exam: alert, oriented x 3, cooperative, operational assistant II-XII nml as tested, normal mood/affect, nml cerebellar function, nml station & gait, sensation nml Skin Exam: normal color, warm, dry Lymphatic Exam: No adenopathy SpO2 Interpretation: normal O2 Delivery: Room Air - Course Nursing assessment & vital signs reviewed: Yes Ordered Tests: Active Orders 24 hr Category Date Time Status IV Insertion STAT Care 10/23/23 18:00 Active IV Insertion-2nd Peripheral STAT Care 10/23/23 18:00 Active Pulse Oximetry (ED) STAT Care 10/23/23 18:06 Active CBC W DIFF Stat Lab 10/23/23 17:30 Completed CMP Stat Lab 10/23/23 17:30 Completed ETHYL ALCOHOL Stat Lab 10/23/23 17:30 Completed Lactic Acid Urgent Lab 10/23/23 18:06 Completed MAGNESIUM Stat Lab 10/23/23 17:30 Completed POCT GLUCOSE Stat Lab 10/23/23 17:17 Received POCT GLUCOSE Stat Lab 10/23/23 19:24 Completed UA W/RFX UR CULTURE Stat Lab 10/23/23 19:11 Completed Urine Triage Profile Stat Lab 10/23/23 17:30 Completed Medication Summary Generic Name Dose Route Start Last Admin Trade Name Freq PRN Reason Stop Dose Admin Lactated Ringer's 1,000 mls @ 999 mls/hr 10/23/23 19:35 10/23/23 19:39 Lactated Ringers IV 10/23/23 20:35 999 mls/hr .Q1H1M ONE Administration Discontinued Medications Generic Name Dose Route Start Last Admin Trade Name Freq PRN Reason Stop Dose Admin Sodium Chloride 1,000 mls @ 999 mls/hr 10/23/23 18:06 10/23/23 19:16 Sodium Chloride 0.9% 1000 Ml IV 10/23/23 19:06 Infused .Q1H1M STA Infusion Sodium Chloride Confirm 10/23/23 18:12 Sodium Chloride 0.9% 1000 Ml Administered 10/23/23 18:13 Dose 1,000 mls @ ud .ROUTE .STK-MED ONE Lactated Ringer's Confirm 10/23/23 19:37 Lactated Ringers Administered 10/23/23 19:38 Dose 1,000 mls @ ud IV .STK-MED ONE Insulin Human Regular 20 unit 10/23/23 18:08 10/23/23 18:15 Insulin Regular, Human 1 Unit IV 10/23/23 18:09 20 unit STAT ONE Administration Insulin Human Regular Confirm 10/23/23 18:11 Insulin Regular, Human 1 Unit Administered 10/23/23 18:12 Dose 20 unit .ROUTE .STK-MED ONE Ondansetron HCl 4 mg 10/23/23 18:06 10/23/23 18:15 Ondansetron Hcl 4 Mg/2 Ml Vial IV 10/23/23 18:07 4 mg STAT ONE Administration Ondansetron HCl Confirm 10/23/23 18:10 Ondansetron Hcl 4 Mg/2 Ml Vial Administered 10/23/23 18:11 Dose 4 mg .ROUTE .STK-MED ONE Lab/Rad Data: Laboratory Result Diagrams 10/23/23 17:30 10/23/23 17:30 Laboratory Results 10/23/23 10/23/23 10/23/23 Range/Units 19:24 19:11 18:06 WBC (4.0-10.5) x10^3/uL RBC (4.1-5.6) x10^6/uL Hgb (12.5-18.0) g/dL Hct (42-50) % MCV (78-100) fL MCH (26-32) pg MCHC (32-36) g/dL RDW (11.5-14.0) % Plt Count (150-450) x10^3/uL MPV (7.5-11.0) fL Gran % (36.0-66.0) % Immature Gran % (Auto) (0.00-0.4) % Nucleat RBC Rel Count (0.00-0.1) % Eos # (Auto) (0-0.5) x10^3/uL Immature Gran # (Auto) (0.00-0.03) x10^3u/L Absolute Lymphs (auto) (1.0-4.6) x10^3/uL Absolute Monos (auto) (0.0-1.3) x10^3/uL Absolute Nucleated RBC (0.00-0.01) x10^3u/L Lymphocytes % (24.0-44.0) % Monocytes % (0.0-12.0) % Eosinophils % (0.00-5.0) % Basophils % (0.0-0.4) % Absolute Granulocytes (1.4-6.9) x10^3/uL Basophils # (0-0.4) x10^3/uL Sodium (137-145) mmol/L Potassium (3.5-5.1) mmol/L Chloride (98-107) mmol/L Carbon Dioxide (22-30) mmol/L Anion Gap (5-15) MEQ/L BUN (9-20) mg/dL Creatinine (0.66-1.25) mg/dL Estimated GFR ML/MIN Glucose (74-106) mg/dL POC Glucometer 275 H (74 to 106) mg/dL Lactic Acid 2.0 (0.4-2.0) Calcium (8.4-10.2) mg/dL Magnesium (1.6-2.3) mg/dL Total Bilirubin (0.2-1.3) mg/dL AST (17-59) U/L ALT (0-50) U/L Alkaline Phosphatase (38-126) U/L Serum Total Protein (6.3-8.2) g/dL Albumin (3.5-5.0) g/dL Urine Color Yellow (Yellow) Urine Appearance Clear (Clear) Urine pH 6.5 (4.6-8.0) Ur Specific [place] >=1.030 A (1.005-1.030) Urine Protein Negative (Negative) Urine Glucose (UA) >=1000 A (Negative) mg/dL Urine Ketones Negative (Negative) Urine Blood Negative (Negative) Urine Nitrite Negative (Negative) Urine Bilirubin Negative (Negative) Urine Urobilinogen 0.2 (0.2) mg/dL Ur Leukocyte Esterase Negative (Negative) U Hyaline Cast (Auto) NONE SEEN (0-2) /LPF Urine Microscopic RBC 0-2 (0-5) /HPF Urine Microscopic WBC 0-2 (0-5) /HPF Ur Epithelial Cells None Seen (None Seen) /HPF Urine Bacteria None Seen (None Seen) /HPF Urine Culture Reflexed NO (NO) Urine Opiates Level (NEGATIVE) Ur Methadone (NEGATIVE) Urine Barbiturates (NEGATIVE) Ur Phencyclidine (PCP) (NEGATIVE) Urine Amphetamine (NEGATIVE) U Benzodiazepine Level (NEGATIVE) Urine Cocaine (NEGATIVE) Urine Marijuana (THC) (NEGATIVE) Ethyl Alcohol (0-10) mg/dL 10/23/23 10/23/23 10/23/23 Range/Units 17:30 17:30 17:30 WBC 6.8 (4.0-10.5) x10^3/uL RBC 5.18 (4.1-5.6) x10^6/uL Hgb 16.3 (12.5-18.0) g/dL Hct 49.4 (42-50) % MCV 95.4 (78-100) fL MCH 31.5 (26-32) pg MCHC 33.0 (32-36) g/dL RDW 11.8 (11.5-14.0) % Plt Count 222 (150-450) x10^3/uL MPV 12.7 H (7.5-11.0) fL Gran % 70.6 H (36.0-66.0) % Immature Gran % (Auto) 0.4 (0.00-0.4) % Nucleat RBC Rel Count 0.0 (0.00-0.1) % Eos # (Auto) 0.11 (0-0.5) x10^3/uL Immature Gran # (Auto) 0.03 (0.00-0.03) x10^3u/L Absolute Lymphs (auto) 1.52 (1.0-4.6) x10^3/uL Absolute Monos (auto) 0.28 (0.0-1.3) x10^3/uL Absolute Nucleated RBC 0.00 (0.00-0.01) x10^3u/L Lymphocytes % 22.3 L (24.0-44.0) % Monocytes % 4.1 (0.0-12.0) % Eosinophils % 1.6 (0.00-5.0) % Basophils % 1.0 (0.0-0.4) % Absolute Granulocytes 4.82 (1.4-6.9) x10^3/uL Basophils # 0.07 (0-0.4) x10^3/uL Sodium 131 L (137-145) mmol/L Potassium 4.8 (3.5-5.1) mmol/L Chloride 95 L (98-107) mmol/L Carbon Dioxide 26 (22-30) mmol/L Anion Gap 14.9 (5-15) MEQ/L BUN 13 (9-20) mg/dL Creatinine 0.63 L (0.66-1.25) mg/dL Estimated GFR 137.9 ML/MIN Glucose 618 H* (74-106) mg/dL POC Glucometer (74 to 106) mg/dL Lactic Acid (0.4-2.0) Calcium 9.7 (8.4-10.2) mg/dL Magnesium 1.9 (1.6-2.3) mg/dL Total Bilirubin 0.30 (0.2-1.3) mg/dL AST 21 (17-59) U/L ALT 25 (0-50) U/L Alkaline Phosphatase 117 (38-126) U/L Serum Total Protein 7.3 (6.3-8.2) g/dL Albumin 4.6 (3.5-5.0) g/dL Urine Color (Yellow) Urine Appearance (Clear) Urine pH (4.6-8.0) Ur Specific [place] (1.005-1.030) Urine Protein (Negative) Urine Glucose (UA) (Negative) mg/dL Urine Ketones (Negative) Urine Blood (Negative) Urine Nitrite (Negative) Urine Bilirubin (Negative) Urine Urobilinogen (0.2) mg/dL Ur Leukocyte Esterase (Negative) U Hyaline Cast (Auto) (0-2) /LPF Urine Microscopic RBC (0-5) /HPF Urine Microscopic WBC (0-5) /HPF Ur Epithelial Cells (None Seen) /HPF Urine Bacteria (None Seen) /HPF Urine Culture Reflexed (NO) Urine Opiates Level NEGATIVE (NEGATIVE) Ur Methadone NEGATIVE (NEGATIVE) Urine Barbiturates NEGATIVE (NEGATIVE) Ur Phencyclidine (PCP) NEGATIVE (NEGATIVE) Urine Amphetamine NEGATIVE (NEGATIVE) U Benzodiazepine Level NEGATIVE (NEGATIVE) Urine Cocaine NEGATIVE (NEGATIVE) Urine Marijuana (THC) POSITIVE A (NEGATIVE) Ethyl Alcohol < 10 (0-10) mg/dL - Progress Progress: improved, re-examined Progress Note: 10/23/23 18:48 This patient's medical issue is 1 of moderate complexity. The level of complexity and the workup performed is based on review of the patient's past medical history, review of the patient's medication list, review the patient drug allergy list, history present illness and physical findings on examination. The workup in this patient includes placement of intravenous line, infusion of normal saline solution, CBC, CMP, lactic acid level, urinalysis, urine drug screen, ethyl alcohol, acetaminophen and salicylate levels. We will also provide the patient with 20 units of regular insulin intravenously and recheck the blood sugar in approximately 30 to 45 minutes. 10/23/23 19:48 I reviewed and interpreted the patient's laboratory data results. Patient has hyperglycemia. He does not have DKA. Repeat Accu-Chek after 20 units of insulin shows a blood sugar of 275. Patient has a normal anion gap and normal CO2 level. We will provide the patient with 1 more liter of fluid which will be lactated Ringer's. We will then discharge the patient to home. Patient is tolerating clear liquids and is feeling well. Before he is discharged to home we will be checking 1 or 2 more blood sugar levels via Accu-Chek. Counseled pt/family regarding: lab results, diagnosis, need for follow-up Medical Desision Making - Diagnostic Testing Diagnostic test were ordered, analyzed, and reviewed by me: Yes - Risk of complications Low Risk: Low risk of morbidity from additional dx testing or treatment - Departure Departure Disposition: Home Clinical Impression: Hyperglycemia Condition: Stable Critical Care Time: No Referrals: KARUNA STEEL [Primary Care Provider] - Follow up/PCP as directed Additional Instructions: Monitor and treat your elevated blood sugar levels closely. Avoid illicit drugs and alcohol use. Call your prescribing provider on 10/26/2023 to make arranges for further evaluation management. Return to the emergency department if you have any concerns or difficulties with controlling your blood sugar levels.
[2023-10-23 17:29] VITALS: TEMP 98.1
[2023-10-23] MEDS ORDERED: Zofran 4 MG/2 ML VIAL ONE (18:10)
[2023-10-23] MEDS ORDERED: HUMULIN R ONE (18:11)
[2023-10-23] MEDS ORDERED: Sodium Chloride 0.9% 1000 ML 1,000 ML ONE (18:12)
[2023-10-23] MEDS: Sodium Chloride 0.9% 1000 ML 1,000 ML IV STA (18:15)
[2023-10-23] MEDS: HUMULIN R IV ONE (18:15)
[2023-10-23] MEDS: Zofran 4 MG/2 ML VIAL IV ONE (18:15)
[2023-10-23 19:04] LABS: Absolute Neutrophil Ct (ANC) 4.82 x10^3/uL (1.4-6.9); Basophil (Absolute #) 0.07 x10^3/uL (0-0.4); Eosinophil % 1.6 % (0.00-5.0); Eosinophil (Absolute #) 0.11 x10^3/uL (0-0.5); Hematocrit 49.4 % (42-50); Hemoglobin 16.3 g/dL (12.5-18.0); IMMATURE GRAN # 0.03 x10^3u/L (0.00-0.03); IMMATURE GRAN % 0.4 % (0.00-0.4); Lymphocyte (Absolute #) 1.52 x10^3/uL (1.0-4.6); Lymphocytes % 22.3 % (24.0-44.0); Mean Cell Volume 95.4 fL (78-100); Mean Corpuscular Hemoglobin 31.5 pg (26-32); Mean Platelet Volume 12.7 fL (7.5-11.0); Monocyte (Absolute #) 0.28 x10^3/uL (0.0-1.3); Monocytes % 4.1 % (0.0-12.0); Neutrophil % 70.6 % (36.0-66.0); Platelet Count 222 x10^3/uL (150-450); Red Blood Count 5.18 x10^6/uL (4.1-5.6); Red Cell Distribution Width 11.8 % (11.5-14.0); White Blood Count 6.8 x10^3/uL (4.0-10.5)
[2023-10-23 19:09] LABS: ALBUMIN 4.6 g/dL (3.5-5.0); ALKALINE PHOSPHATASE 117 U/L (38-126); ANION GAP 14.9 MEQ/L (5-15); BLOOD UREA NITROGEN 13 mg/dL (9-20); CHLORIDE 95 mmol/L (98-107); Calcium 9.7 mg/dL (8.4-10.2); Carbon Dioxide 26 mmol/L (22-30); Creatinine 1 0.63 mg/dL (0.66-1.25); EST GLOMERULAR FILTRATION RATE 137.9 ML/MIN; ETHYL ALCOHOL < 10 mg/dL (0-10); MAGNESIUM 1.9 mg/dL (1.6-2.3); Potassium 4.8 mmol/L (3.5-5.1); SGOT/AST 21 U/L (17-59); SGPT/ALT 25 U/L (0-50); SODIUM 131 mmol/L (137-145); Total Protein 7.3 g/dL (6.3-8.2)
[2023-10-23 19:18] LABS: Amphetamine,Urine NEGATIVE (NEGATIVE); Barbiturate,Urine NEGATIVE (NEGATIVE); Benzodiazepine,Urine NEGATIVE (NEGATIVE); Cocaine,Urine NEGATIVE (NEGATIVE); Methadone,Urine NEGATIVE (NEGATIVE); Opiate,Urine NEGATIVE (NEGATIVE); PCP,Urine NEGATIVE (NEGATIVE); THC,Urine POSITIVE (NEGATIVE)
[2023-10-23 19:19] LABS: Appearance Clear (Clear); Bacteria None Seen /HPF (None Seen); Bilirubin Negative (Negative); Blood Negative (Negative); Epithelial Cells None Seen /HPF (None Seen); Glucose, Urine >=1000 mg/dL (Negative); Hyaline Casts NONE SEEN /LPF (0-2); Ketones Negative (Negative); Leukocyte Esterase Negative (Negative); Nitrite Negative (Negative); Ph 6.5 (4.6-8.0); Protein,Urine Dip Negative (Negative); RBC 0-2 /HPF (0-5); Specific Gravity >=1.030 (1.005-1.030); Urobilinogen 0.2 mg/dL (0.2); WBC 0-2 /HPF (0-5)
[2023-10-23 19:22] LABS: Glucose 618 mg/dL (74-106)
[2023-10-23 19:27] VITALS: RESP 16; O2SAT 99
[2023-10-23 19:29] LABS: ADD URINE CULTURE? NO (NO)
[2023-10-23] MEDS ORDERED: Lactated Ringers 1,000 ML IV ONE (19:37)
[2023-10-23] MEDS: Lactated Ringers 1,000 ML IV ONE (19:39)
[2023-10-23] MEDS ORDERED: HYDROCODONE-ACETAMIN 2.5-108/5 ML SOLUTION ONE (20:34)
[2023-10-23] MEDS: HYDROCODONE-ACETAMIN 2.5-108/5 ML SOLUTION PO STA (20:35)
[2023-10-23 20:39] VITALS: BP 133/85; PULSE 84
== END 2023-10-23 20:43 | disposition home or self-care (01) ==
LOC: ED 16:52
DX: E10.65 Type 1 diabetes mellitus with hyperglycemia (principal); Z28.310 Unvaccinated for COVID-19; Z72.0 Tobacco use
CPT/HCPCS: 36000; 36415; 80053; 80307; 81001; 82077; 82947; 83605; 83735; 85025; 94760; 96374; 96375; 99284; J1815; J2405; A9270-GY

== ENCOUNTER 2024-09-19 23:13 | Emergency (ER) | payer OTHER ==
[2024-09-19 23:24] VITALS: TEMP 98.1
[2024-09-19] MEDS ORDERED: TORAdol 30 mg Injection ONE (23:48)
--- NOTE | 2024-09-19 23:49 | ERPHSYRPT ---
- History of Present Illness Time Seen by Provider: 09/19/24 23:30 Source: patient Exam Limitations: no limitations Patient Subjective Stated Complaint: bottom right tooth pain, I bit into a juju butter 2 days ago and it got stuck and my tooth is very loose and I'm having alot of pain Triage Nursing Assessment: Pt ambulated into ER without diff. Pt c/o tooth pain to the lower right front/side tooth. Pt was eating 2 days ago and bit into a n utter butter. The food got stuck on his tooth, making his tooth loose. Pt is having alot of pain from this. Pt sees the dentist on 10/20/26. Physician History: 23-year-old male presents to our ED for evaluation of loose dentition. 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 Juju butter causing acute pain and further luxation. Patient has taken [id number] Tylenol and reports that the pain relief was minimal. Patient is here for additional pain medication. No interval trauma. No fever. No difficulty swallowing no sore throat no headache. Patient otherwise feels well. He voices no other complaints or concerns at this time. Patient currently has an appointment to see his dentist on October 20, 2024 Portions of this note were created with voice recognition technology. There may be grammatical, spelling, punctuation or sound alike errors Timing/Duration: day(s) (2 days ago) Severity: moderate Modifying Factors: Improves With: nothing Associated Symptoms: denies symptoms Allergies/Adverse Reactions: No Known Drug Allergies Allergy (Verified 09/19/24 23:29) Home Medications: Insulin Lispro [Humalog] 0 unit SQ DAILY 03/21/14 [History] Hx Tetanus, Diphtheria Vaccination/Date Given: Yes Hx Influenza Vaccination/Date Given: No Hx Pneumococcal Vaccination/Date Given: No Travel Risk - International Travel Have you traveled outside of the country in past 3 weeks: No - Emerging Infectious Disease Are you exhibiting symptoms associated with any current EIDs: No - Review of Systems Constitutional: No Symptoms, No Fever, No Chills Eyes: No Symptoms Ears, Nose, & Throat: No Symptoms Respiratory: No Symptoms, No Cough, No Dyspnea Cardiac: No Symptoms, No Chest Pain, No Edema, No Syncope Abdominal/Gastrointestinal: No Symptoms, No Abdominal Pain, No Nausea, No Vomiting, No Diarrhea Genitourinary Symptoms: No Symptoms, No Dysuria Musculoskeletal: No Symptoms, No Back Pain, No Neck Pain Skin: No Symptoms, No Rash Neurological: No Symptoms, No Dizziness, No Focal Weakness, No Sensory Changes Psychological: No Symptoms Endocrine: No Symptoms Hematologic/Lymphatic: No Symptoms Immunological/Allergic: No Symptoms All Other Systems: Reviewed and Negative - Past Medical History Pertinent Past Medical History: Yes Neurological History: Seizures ENT History: No Pertinent History Cardiac History: No Pertinent History Respiratory History: No Pertinent History Endocrine Medical History: Diabetes Type I, Hypoglycemia Musculoskeletal History: No Pertinent History GI Medical History: No Pertinent History History: No Pertinent History Psycho-Social History: Attention Deficit Disorder, Depression Male Reproductive Disorders: No Pertinent History Other Medical History: 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 - Past Surgical History Past Surgical History: No Neuro Surgical History: No Pertinent History Cardiac: No Pertinent History Respiratory: No Pertinent History Gastrointestinal: No Pertinent History Genitourinary: No Pertinent History Musculoskeletal: No Pertinent History Male Surgical History: No Pertinent History Significant Family History: no pertinent family hx - Social History Smoking Status: Current every day smoker How long have you smoked: 10 yrs Exposure to second hand smoke: No Drug Use: none Patient Lives Alone: No - Social Determinants of Health Will the patient participate in the screening: Yes Do you worry about a steady place to live?: No Do you have any problems with any of the following?: No known problems In the past 12 months,have you had to go without utilities?: No Transportation Issues: No Has anyone in your support network made you feel unsafe?: No Have you or anyone in your house had to go without enough: No - Nursing Vital Signs Nursing Vital Signs: Initial Vital Signs Temperature 98.1 F 09/19/24 23:22 Pulse Rate 116 H 09/19/24 23:22 Respiratory Rate 16 09/19/24 23:22 Blood Pressure 124/70 09/19/24 23:22 O2 Sat by Pulse Oximetry 100 09/19/24 23:22 Pain Scale Pain Intensity 7 - Physical Exam General Appearance: no apparent distress, alert Eye Exam: PERRL/EOMI, eyes nml inspection Ears, Nose, Throat Exam: normal ENT inspection, TMs normal, pharynx normal, moist mucous membranes, other (Chronically inflamed gingiva surrounding loose dentition between teeth 6-11. Patient has poor dentition throughout including loose teeth and carious teeth. Several missing teeth observed as well.) Neck Exam: normal inspection, non-tender, supple, full range of motion Respiratory Exam: normal breath sounds, lungs clear, No respiratory distress Cardiovascular Exam: regular rate/rhythm, normal heart sounds, normal peripheral pulses Gastrointestinal/Abdomen Exam: soft, normal bowel sounds, No tenderness, No mass Back Exam: normal inspection, normal range of motion, No CVA tenderness, No vertebral tenderness Extremity Exam: normal inspection, normal range of motion, pelvis stable Neurologic Exam: alert, oriented x 3, cooperative, normal mood/affect, sensation nml, No motor deficits Skin Exam: normal color, warm, dry, No rash Lymphatic Exam: No adenopathy SpO2 Interpretation: normal SpO2: 100 O2 Delivery: Room Air - Course Nursing assessment & vital signs reviewed: Yes - Progress Progress: improved Progress Note: 23-year-old male presents to our ED for evaluation of dental pain. Physical exam reveals luxation of teeth. There appears to be chronic gum disease predisposing. Unclear whether or not there is an acute dental infection. Patient received Toradol for pain. Pain improved. A prescription for Toradol and Augmentin forwarded to patient's pharmacy. Patient will see his dentist next month as planned. No indication for further workup will discharge home. Patient agrees to follow-up as planned. He voices no other complaints or concerns at this time. Portions of this note were created with voice recognition technology. There may be grammatical, spelling, punctuation or sound alike errors Complexity of problem addressed is moderate acute complicated no critical care time. Complex of data reviewed and analyzed is none. No specialized testing ordered. Diagnosis made based on history and physical exam. Risk of complication and or risk of morbidity/mortality of patient management is moderate. A prescription for Toradol forwarded to patient's pharmacy. Vital stable. Time spent to discharge patient approximately 10 minutes. Plan of care established for shared decision making. No social determinants of health present to impede follow-up. Portions of this note were created with voice recognition technology. There may be grammatical, spelling, punctuation or sound alike errors 09/19/24 23:59 Counseled pt/family regarding: diagnosis, need for follow-up - Departure Departure Disposition: Home Clinical Impression: Tooth luxation, Periodontitis Condition: Stable Critical Care Time: No Referrals: KARUNA ADAMS [Primary Care Provider] - Follow up/PCP as directed Additional Instructions: Discharge/Care Plan MAGDALENA ZHOU was seen on 09/19/24 in the Emergency Room. The patient was counseled regarding Diagnosis,Lab results, Imaging studies, need for follow up and when to return to the Emergency Room. Prescriptions given: Discharge Note I have spoken with the patient and/or caregivers. I have explained the patient's condition, diagnosis and treatment plan based on the information available to me at this time. I have answered the patient's and/or caregiver's questions and addressed any concerns. The patient and/or caregivers have as good understanding of the patient's diagnosis, condition and treatment plan as can be expected at this point. The vital signs have been stable. The patient's condition is stable and appropriate for discharge from the emergency department. The patient will pursue further outpatient evaluation with the primary care physician or other designated or consulting physician as outlined in the discharge instructions. The patient and/or caregivers are agreeable to this plan of care and follow-up instructions have been explained in detail. The patient and/or caregivers have received these instruction. The patient/and or caregivers are aware that any significant change in condition or worsening of symptoms should prompt an immediate return to this or the closest emergency department or call 911. Prescriptions: Amox Tr/Potass Clav. 875 mg [Augmentin 875-125 Tablet] 875 mg PO BID 7 Days #14 tablet Ketorolac Trometh 10 mg Tab [TORAdol 10 MG TABLET] 10 mg PO TID 5 Days #15 tablet
[2024-09-19] MEDS: TORAdol 30 mg Injection IM ONE (23:55)
[2024-09-20 00:05] VITALS: BP 139/74; PULSE 104; RESP 20; O2SAT 99
== END 2024-09-20 00:12 | disposition home or self-care (01) ==
LOC: ED 23:13
DX: S03.2XXA Dislocation of tooth, initial encounter (principal); K05.30 Chronic periodontitis, unspecified; K08.89 Other specified disorders of teeth and supporting structures; E10.9 Type 1 diabetes mellitus without complications; Z79.899 Other long term (current) drug therapy; Z72.0 Tobacco use
CPT/HCPCS: 96372; 99282; 99283; J1885